=== PATIENT | male | born 1945 | race Caucasian/White ===

== ENCOUNTER → 2016-04-15 | Outpatient (CLI) | payer MEDICARE, OTHER ==
[~2016-04-15] MED LIST: CELE-19 PO; CIAL5TAB PO; COLA100C PO; GABA100C PO; GABA300C3 PO; LYRI75CA PO; OXYC1TAB16 PO; TPS CREAM TOP; ULTR50TA PO
--- NOTE | 2016-04-29 00:59 | ECWPNPC ---
PATIENT NAME: MAGDALENO SIMS : 1945 GENDER: MALE VISIT DATE: 04/15/2016 DISCHARGE DATE: 04/15/16 1140 VISIT LOCKED DATE TIME: PHYSICIAN: ALEJANDRINA BERNAL RESOURCE: ALEJANDRINA BERNAL REASON FOR APPOINTMENT 1. RT FOREARM HISTORY OF PRESENT ILLNESS TODAY'S VISIT: NOTES: CONTINUES TO HAVE PAIN IN RIGHT FOREARM AND HAS BEEN HAVING MORE PAIN RADIATING FROM NECK TO RIGHT ARM. RATES PAIN LEVEL TODAY A 6/10 DESCRIBES IT CONSTANT SHARP AND ACHING. NOTES IT REMAINS DIFFICULT FOR HIM TO FIND A COMFORTABLE POSITION FOR SLEEP. CONTINUES TO NOTE HYPERSENSITIVITY TO ANY LIGHT TOUCH OVER THE RIGHT FORE ARM. CURRENT MEDICATIONS NOT-TAKING DOCUSATE SODIUM 50 MG CAPSULE 1 CAPSULE NEEDED ORALLY ONCE A DAY NOT-TAKING CIALIS 5 MG TABLET 1 TABLET ORALLY NOT-TAKING CLOTRIMAZOLE-BETAMETHASONE 1-0.05 % LOTION 1 APPLICATION TO AFFECTED AREA EXTERNALLY TWICE A DAY NOT-TAKING PERCOCET 5-325 MG TABLET 1-2 TABLET(S) NEEDED FOR PAIN ORALLY EVERY 6 HRS NOT-TAKING VALIUM 5 MG TABLET 1 TABLET ORALLY QHS PAST MEDICAL HISTORY ED ALLERGIES DILAUDID: ITCHING VITAL SIGNS WT 234.0 LBS, HT 5'11'', BMI 32.63 INDEX, BP 155/79 MM HG, HR 76 /MIN, RR 20 /MIN, TEMP 97.6 F, OXYGEN SAT % 96%, NA INITIALS SC 10:30. EXAMINATION GENERAL EXAMINATION: PSYCHALERT , ORIENTED X 3 , APPROPRIATE MOOD AND AFFECT . LUNGS:CLEAR TO AUSCULTATION BILATERALLY. HEART:HEART RATE REGULAR. MUSCULOSKELETAL:DECREASED ROM WITH RIGHT SHOULDER ABDUCTION,. MILDTENDERNESS OVER RIGHT ACROMIOCLAVICULAR JOINT. HYPERSENSITIVTY TO ANY LIGHT TOUCH OVER RIGHT FOREARM FROM BASE OF RIGHT THUMB TO 5-6 CM EXTENDING PROXIMALLY UP THE RIGHT FOREARM. NO SKIN LESIONS. DECREASED ROM WITH MOVEMENT RIGHT THUMB WITH FLEXION/EXTENSION. . 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 (PRIMARY) NEURALGIA AND NEURITIS - M79.2 TREATMENT COMPLEX REGIONAL PAIN SYNDROME I OF RIGHT UPPER LIMB [facility] MRI SPINE, CERVICAL WITH [id number] [facility] MRI SPINE,THORACIC WITHOUT [id number] PROCEDURE CODES FA211 ESTABILISHED PATIENT [facility] FACILITY CHARGE Q5185 PAIN ASSESS POS TOOL F/U PLAN DOC G8427 DOC MEDS VERIFIED W/PT OR RE DISPOSITION & COMMUNICATION FOLLOW UP APPT WITH DR HINES FOR DCS EVAL (REASON: CHECK AUTH FOR THORACIC AND CERVICAL MRI) ELECTRONICALLY SIGNED BY HUNTER LIVINGSTON ON 04/28/2016 AT 02:53 PM EST DISCLAIMER : THIS IS A VISIT SUMMARY EXTRACTED FROM THE [employer] CHART. IT IS NOT A COPY OF THE [employer] PROGRESS NOTE. MTDD
== END ==
LOC: M PAIN 10:20
PROVIDERS: ATTEND Nurse Practitioner Family
DX: Z09 Encounter for follow-up examination after completed treatment for conditions other than malignant neoplasm (principal); G89.29 Other chronic pain; G90.511 Complex regional pain syndrome I of right upper limb; M79.2 Neuralgia and neuritis, unspecified; Z88.8 Allergy status to other drugs, medicaments and biological substances; M25.511 Pain in right shoulder; Z79.891 Long term (current) use of opiate analgesic; Z79.899 Other long term (current) drug therapy

== ENCOUNTER → 2016-05-07 | Outpatient (CLI) | payer MEDICARE, OTHER | LOC: M PAIN 11:00 | PROVIDERS: ATTEND Anesthesiology | DX: Z09 Encounter for follow-up examination after completed treatment for conditions other than malignant neoplasm (principal); G89.29 Other chronic pain; M79.2 Neuralgia and neuritis, unspecified; M79.603 Pain in arm, unspecified; N52.9 Male erectile dysfunction, unspecified; Z88.8 Allergy status to other drugs, medicaments and biological substances; Z79.891 Long term (current) use of opiate analgesic; Z79.899 Other long term (current) drug therapy; Z96.652 Presence of left artificial knee joint ==

== ENCOUNTER → 2016-06-29 | Outpatient (CLI) | payer MEDICARE, OTHER ==
[~2016-06-29] MED LIST changes: -COLA100C PO; +COLA100C3 PO; +GABA-282 PO; -GABA300C3 PO
--- NOTE | 2016-07-05 00:54 | ECWPNPC ---
PATIENT NAME: MAGDALENO SIMS : 1945 GENDER: MALE VISIT DATE: 06/29/2016 DISCHARGE DATE: 06/29/16 1528 VISIT LOCKED DATE TIME: PHYSICIAN: VALENTINA HINES RESOURCE: VALENTINA HINES REASON FOR APPOINTMENT 1. DCS HISTORY OF PRESENT ILLNESS HISTORY OF PRESENT ILLNESS: PAIN THE PATIENT DESCRIBES THE PAIN... 71 YEAR OLD MALE PATIENT WITH HISTORY OF CHRONIC ARM PAIN. PATIENT DESCRIBES THE PAIN ACHING, SHARP, STABBING, TENDER AND HAVING IT ALL THE TIME WITH A PAIN SCORE OF 9/10 ON TODAY'S VISIT. PATIENT REPORTS THAT THE PAIN GETS WORSE THROUGHOUT THE DAY AND HE IS HAVING A DIFFICULT PAIN FALLING ASLEEP AND STAYING ASLEEP DUE TO THE PAIN. PATIENT STATES THAT LIDOCAINE PATCH WAS DENIED BY MEDICARE AND HE WAS UNABLE TO START IT. PATIENT DENIES UNEXPLAINABLE WEIGHT LOSS, FEVER, CHILLS, NEW CHANGES ON HIS URINARY OR BOWEL CONTROL. FALL RISK SCREENING: SCREENING :NO FALLS IN THE PAST YEAR CURRENT MEDICATIONS NOT-TAKING LIDOCAINE 5 % PATCH DIRECTED EXTERNALLY BID AT AFFECTED AREA, NOTES: COULD NOT GET THEM NOT-TAKING DOCUSATE SODIUM 50 MG CAPSULE 1 CAPSULE NEEDED ORALLY ONCE A DAY NOT-TAKING CIALIS 5 MG TABLET 1 TABLET ORALLY NOT-TAKING CLOTRIMAZOLE-BETAMETHASONE 1-0.05 % LOTION 1 APPLICATION TO AFFECTED AREA EXTERNALLY TWICE A DAY NOT-TAKING PERCOCET 5-325 MG TABLET 1-2 TABLET(S) NEEDED FOR PAIN ORALLY EVERY 6 HRS NOT-TAKING VALIUM 5 MG TABLET 1 TABLET ORALLY QHS MEDICATION LIST REVIEWED AND RECONCILED WITH THE PATIENT PAST MEDICAL HISTORY ED ALLERGIES DILAUDID: ITCHING SURGICAL HISTORY RIGHT THUMB 01/29/05 LEFT KNEE AUGUST-2011 LEFT KNEE AUGUST 2013 COLONOSCOPY 04/2014 CIRCUMCISION 09/02/14 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 TOTAL LT KNEE RELACEMENT FOLLOWING INFECTION OF KNEE 03/2015 FAMILY HISTORY NO FAMILY HISTORY DOCUMENTED. SOCIAL HISTORY GENERAL: PAIN CLINIC PFS, CLERGY, PUBLIC HEALTH REFERRALS PFS REFERRAL NEEDED?NO CLERGY REFERRAL NEEDED?NO PUBLIC HEALTH REFERRAL NEEDED?NO WAS THE PROVIDER NOTIFIED OF ANY PERTINENT INFO?YES PATIENT: ____. HOSPITALIZATION/MAJOR DIAGNOSTIC PROCEDURE DIVERTICULITIS 03/2014 REVIEW OF SYSTEMS CONSTITUTIONAL: ANY CHANGE IN YOUR MEDICAL CONDITION? NO . CHILLS NO . FEVER NO . INFECTION: DO YOU HAVE NEW INFECTIONS? NO . DO YOU HAVE HISTORY OF MRSA? NO . MUSCULOSKELETAL: ANY NEW PATTERNS OF PAIN OR NUMBNESS? NO . GASTROENTEROLOGY: ANY NEW CHANGE IN BOWEL CONTROL? NO . GENITOURINARY: ANY NEW CHANGE IN BLADDER CONTROL? NO . IS THERE A CHANCE YOU COULD BE ? NO . HEMATOLOGY/LYMPH: DO YOU TAKE ANY BLOOD THINNERS? (FOR EXAMPLE- COUMADIN, PLAVIX, AGGRENOX, PLATEL, PRADAXA, OR XARELTO) NO . WHEN WAS YOUR LAST DOSE? DATE: TIME: . NEUROLOGY: HAVE YOU FALLEN IN THE PAST 6 MONTHS? NO . ANY NEW EXTREMITY NUMBNESS OR WEAKNESS? NO . CARDIOLOGY: DO YOU HAVE A PACEMAKER OR DEFIBRILLATOR? NO . RESPIRATORY: HAVE YOU BEEN SICK IN THE PAST WEEK? NO . FEVER NO . FLU LIKE SYMPTOMS? NO . COUGH NO . INTEGUMENTARY: DO YOU HAVE ANY RASHES OR OPEN SORES? NO . ALLERGIC/IMMUNO: ARE YOU ALLERGIC TO SHELLFISH OR IV DYE? NO . ANY NEW ALLERGIES? NO . PSYCHIATRIC: DO YOU HAVE THOUGHTS OF HURTING YOURSELF OR SOMEONE ELSE? NO . ARE YOU ABUSED, NEGLECTED, OR IN AN UNSAFE ENVIRONMENT? NO . ENDOCRINOLOGY: ARE YOU DIABETIC? NO . OTHER: DO YOU NEED ANY PRESCRIPTIONS? NO . IF YES, PLEASE LIST: ____ . ANY NEW PROBLEMS WITH YOUR MEDICATIONS? NO . WHEN DID YOU LAST EAT? ____ . WHEN DID YOU LAST DRINK? ____ . WHAT DID YOU LAST DRINK? ____ . NAME OF PERSON DRIVING YOU HOME? ____ . DO YOU HAVE ANY OTHER QUESTIONS OR CONCERNS NO . REVIEWED BY: PROVIDER: VALENTINA HINES MD . VITAL SIGNS WT 230 LBS, HT 71", BMI 32.07 INDEX, BP 141/79 MM HG, HR 77 /MIN, RR 18 /MIN, TEMP 98.4 F, OXYGEN SAT % 95%, SAFE IN ENV? (Y/N) Y, NA INITIALS SC 13:40, REVIEWED BY: ASIYA. EXAMINATION : PATIENT IS ALERT O X 3 AND COOPERATIVE. ALLODYNIA OVER THE LATERAL FOREARM. RADIAL NERVE NEURALGIA. STATUS POST TRAUMA RIGHT THUMB. PATIENT'S RIGHT ARMS IS WEAKER AT FLEXION AND EXTENSION COMPARED TO THE LEFT ARM. 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 TREATMENT NEURALGIA AND NEURITIS, UNSPECIFIED NOTES: WE DISCUSSED SEVERAL ISSUES WITH MR. SIMS'S PAIN MANAGEMENT CASE. AT THIS TIME THE PATIENT WILL START TO USE A LIDODERM CREAM ON HIS FOREARM TO SEE IF THAT WILL AID IN PAIN RELIEF AND ALSO PATIENT WILL START ON TRILEPTAL FOR THE PAIN. PATIENT EXPRESSES THAT HE WOULD LIKE TO PROCEED FORWARD WITH THE DCS TRIAL, DISCUSSED WITH THE PATIENT WE HAVE SENT THE REFERRAL OVER TO DR. UP AND AT THIS TIME WE ARE WAITING FOR HIS OFFICE TO GIVE THEM A CALL FOR AN APPOINTMENT. I WOULD LIKE TO DISCUSS THE PATIENT'S MRI WITH THE RADIOLOGIST. PATIENT TO FOLLOW UP WITH ME IN 1 MONTH. INSTRUCTIONS WERE GIVEN, QUESTIONS WERE ANSWERED, PATIENT REPORTS UNDERSTANDING AND AGREES WITH THE PLAN. I, DEMETRA SANCHEZ, DOCUMENTED THE ABOVE INFORMATION ACTING A SCRIBE FOR DR. HINES. I HAVE REVIEWED THE ABOVE DOCUMENT, WRITTEN BY DEMETRA SANCHEZ SCRIBE AND I VERIFY THAT IT IS ACCURATE. OTHERS START LIDOCAINE CREAM, 4 %, 1 APPLICATION TO AFFECTED AREA NEEDED, EXTERNALLY NEEDED FOR PAIN, THREE TIMES A DAY, 30 DAY(S), 1, REFILLS 2 START TRILEPTAL TABLET, 150 MG, DIRECTED, ORALLY FOR PAIN, BID, 30 DAY(S), 60, REFILLS 0 PROCEDURE CODES FA211 ESTABILISHED PATIENT [facility] CHARGE G8730 PAIN ASSESS POS TOOL F/U PLAN DOC G8427 DOC MEDS VERIFIED W/PT OR RE DISPOSITION & COMMUNICATION FOLLOW UP 4 WEEKS ELECTRONICALLY SIGNED BY VALENTINA HINES MD ON 07/04/2016 AT 11:39 AM EDT DISCLAIMER : THIS IS A VISIT SUMMARY EXTRACTED FROM THE [employer] CHART. IT IS NOT A COPY OF THE [employer] PROGRESS NOTE. MTDD
== END ==
LOC: M PAIN 13:40
PROVIDERS: ATTEND Anesthesiology
DX: G89.29 Other chronic pain (principal); M79.2 Neuralgia and neuritis, unspecified; M79.601 Pain in right arm; Z88.8 Allergy status to other drugs, medicaments and biological substances; Z79.891 Long term (current) use of opiate analgesic; Z79.899 Other long term (current) drug therapy

== ENCOUNTER → 2016-07-15 | Outpatient (CLI) | payer MEDICARE, OTHER ==
--- NOTE | 2016-07-28 00:40 | ECWPNPC ---
PATIENT NAME: MAGDALENO SIMS : 1945 GENDER: MALE VISIT DATE: 07/15/2016 DISCHARGE DATE: 07/15/161716 VISIT LOCKED DATE TIME: PHYSICIAN: VALENTINA HINES RESOURCE: VALENTINA HINES REASON FOR APPOINTMENT 1. FOLLOW UP HISTORY OF PRESENT ILLNESS HISTORY OF PRESENT ILLNESS: PAIN THE PATIENT DESCRIBES THE PAIN... 71 YEAR OLD MALE PATIENT WITH HISTORY OF CHRONIC RIGHT ARM PAIN. PATIENT DESCRIBES THE PAIN ACHING, SHARP, STABBING, THROBBING, AND HAVING IT ALL THE TIME WITH A PAIN SCORE OF 9/10 ON TODAY'S VISIT. PATIENT REPORTS THAT HE IS HERE TODAY TO FILL OUT THE PAPER WORK FOR A SPINAL COLUMN STIMULATOR. PATIENT REPORTS THAT THE PAIN IS PRIMARILY IN THE RIGHT WRIST TO FOREARM AREA RADIATING UP TO THE ELBOW AREA. PATIENT STATES THAT HE CAN NOT STAND FOR A LONG PERIOD OF TIME. PATIENT DENIES TAKING BLOOD THINNERS, DAILY ASPIRIN, AND IBUPROFEN. PATIENT REPORTS THAT HE HAD A CARDIAC EVENT. PATIENT DENIES UNEXPLAINABLE WEIGHT LOSS, FEVER, CHILLS, NEW CHANGES ON HIS URINARY OR BOWEL CONTROL. FALL RISK SCREENING: SCREENING :NO FALLS IN THE PAST YEAR CURRENT MEDICATIONS TAKING LIDOCAINE 4 % CREAM 1 APPLICATION TO AFFECTED AREA NEEDED EXTERNALLY NEEDED FOR PAIN THREE TIMES A DAY TAKING TRILEPTAL 150 MG TABLET DIRECTED ORALLY FOR PAIN BID NOT-TAKING CIALIS 5 MG TABLET 1 TABLET ORALLY NOT-TAKING CLOTRIMAZOLE-BETAMETHASONE 1-0.05 % LOTION 1 APPLICATION TO AFFECTED AREA EXTERNALLY TWICE A DAY DISCONTINUED LIDOCAINE 5 % PATCH DIRECTED EXTERNALLY BID AT AFFECTED AREA, NOTES: COULD NOT GET THEM DISCONTINUED DOCUSATE SODIUM 50 MG CAPSULE 1 CAPSULE NEEDED ORALLY ONCE A DAY DISCONTINUED PERCOCET 5-325 MG TABLET 1-2 TABLET(S) NEEDED FOR PAIN ORALLY EVERY 6 HRS DISCONTINUED VALIUM 5 MG TABLET 1 TABLET ORALLY QHS MEDICATION LIST REVIEWED AND RECONCILED WITH THE PATIENT PAST MEDICAL HISTORY ED ALLERGIES DILAUDID: ITCHING SURGICAL HISTORY RIGHT THUMB 01/29/05 LEFT KNEE AUGUST-2011 LEFT KNEE AUGUST 2013 COLONOSCOPY 04/2014 CIRCUMCISION 09/02/14 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 TOTAL LT KNEE RELACEMENT FOLLOWING INFECTION OF KNEE 03/2015 FAMILY HISTORY NO FAMILY HISTORY DOCUMENTED. SOCIAL HISTORY GENERAL: PAIN CLINIC PFS, CLERGY, PUBLIC HEALTH REFERRALS CLERGY REFERRAL NEEDED?NO WAS THE PROVIDER NOTIFIED OF ANY PERTINENT INFO?YES PFS REFERRAL NEEDED?NO PUBLIC HEALTH REFERRAL NEEDED?NO PATIENT: ____. HOSPITALIZATION/MAJOR DIAGNOSTIC PROCEDURE DIVERTICULITIS 03/2014 REVIEW OF SYSTEMS CONSTITUTIONAL: ANY CHANGE IN YOUR MEDICAL CONDITION? NO . CHILLS NO . FEVER NO . INFECTION: DO YOU HAVE NEW INFECTIONS? NO . DO YOU HAVE HISTORY OF MRSA? NO . MUSCULOSKELETAL: ANY NEW PATTERNS OF PAIN OR NUMBNESS? NO . GASTROENTEROLOGY: ANY NEW CHANGE IN BOWEL CONTROL? NO . GENITOURINARY: ANY NEW CHANGE IN BLADDER CONTROL? NO . IS THERE A CHANCE YOU COULD BE ? NO . HEMATOLOGY/LYMPH: DO YOU TAKE ANY BLOOD THINNERS? (FOR EXAMPLE- COUMADIN, PLAVIX, AGGRENOX, PLATEL, PRADAXA, OR XARELTO) NO . WHEN WAS YOUR LAST DOSE? DATE: TIME: . NEUROLOGY: HAVE YOU FALLEN IN THE PAST 6 MONTHS? NO . ANY NEW EXTREMITY NUMBNESS OR WEAKNESS? NO . CARDIOLOGY: DO YOU HAVE A PACEMAKER OR DEFIBRILLATOR? NO . RESPIRATORY: HAVE YOU BEEN SICK IN THE PAST WEEK? NO . FEVER NO . FLU LIKE SYMPTOMS? NO . COUGH NO . INTEGUMENTARY: DO YOU HAVE ANY RASHES OR OPEN SORES? NO . ALLERGIC/IMMUNO: ARE YOU ALLERGIC TO SHELLFISH OR IV DYE? NO . ANY NEW ALLERGIES? NO . PSYCHIATRIC: DO YOU HAVE THOUGHTS OF HURTING YOURSELF OR SOMEONE ELSE? NO . ARE YOU ABUSED, NEGLECTED, OR IN AN UNSAFE ENVIRONMENT? NO . ENDOCRINOLOGY: ARE YOU DIABETIC? NO . OTHER: DO YOU NEED ANY PRESCRIPTIONS? NO . IF YES, PLEASE LIST: ____ . ANY NEW PROBLEMS WITH YOUR MEDICATIONS? NO . WHEN DID YOU LAST EAT? ____ . WHEN DID YOU LAST DRINK? ____ . WHAT DID YOU LAST DRINK? ____ . NAME OF PERSON DRIVING YOU HOME? ____ . DO YOU HAVE ANY OTHER QUESTIONS OR CONCERNS NO . REVIEWED BY: PROVIDER: VALENTINA HINES MD . VITAL SIGNS WT 231.2 LBS, HT 71", BMI 32.24 INDEX, BP 144/78 MM HG, HR 81 /MIN, RR 18 /MIN, TEMP 98.1 F, OXYGEN SAT % 95%, NA INITIALS SC 14:38, REVIEWED BY: CM. EXAMINATION : PATIENT IS ALERT O X 3 AND COOPERATIVE. ALLODYNIA OVER THE LATERAL FOREARM. RADIAL NERVE NEURALGIA. STATUS POST TRAUMA RIGHT THUMB. PATIENT'S RIGHT ARMS IS WEAKER AT FLEXION AND EXTENSION COMPARED TO THE LEFT ARM. 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 TREATMENT NEURALGIA AND NEURITIS, UNSPECIFIED NOTES: WE DISCUSSED SEVERAL ISSUES WITH MR. SIMS'S PAIN MANAGEMENT CASE. AT THIS TIME THE PATIENT WILL CONTINUE ON THE SAME MEDICATION REGIMEN BEFORE. I WILL PRESCRIBE KEFLEX CAPSULE AND ADVISED THE PATIENT TO ONLY START TAKING THIS MEDICATION THE DAY OF THE TRIAL A PRECAUTION AGAINST INFECTIONS. A THIS TIME THE PATIENT WOULD LIKE TO PROCEED WITH THE SCS. BUT I DISCUSSED WITH THE PATIENT THAT DUE TO THE CARDIAC EVENT HE EXPERIENCE I WILL NEED A CLEARANCE FROM HIS YARDAGE CONTROL CLERK TO GIVE HIM THE OKAY TO PROCEED WITH A SCS TRIAL. INSTRUCTIONS WERE GIVEN, QUESTIONS WERE ANSWERED, PATIENT REPORTS UNDERSTANDING AND AGREES WITH THE PLAN. I, DEMETRA SANCHEZ, DOCUMENTED THE ABOVE INFORMATION ACTING A SCRIBE FOR DR. HINES. I HAVE REVIEWED THE ABOVE DOCUMENT, WRITTEN BY DEMETRA SANCHEZ [employer] AND I VERIFY THAT IT IS ACCURATE. OTHERS START KEFLEX CAPSULE, 500 MG, 1 CAPSULE, ORALLY, THREE TIMES DAILY, 10 DAY(S), 30, REFILLS 0 REFILL TRILEPTAL TABLET, 150 MG, DIRECTED, ORALLY FOR PAIN, BID, 30 DAY(S), 60, REFILLS 0 REFILL LIDOCAINE CREAM, 4 %, 1 APPLICATION TO AFFECTED AREA NEEDED, EXTERNALLY NEEDED FOR PAIN, THREE TIMES A DAY, 30 DAY(S), 1, REFILLS 2 PROCEDURE CODES FA211 ESTABILISHED PATIENT [facility] FACILITY CHARGE G8730 PAIN ASSESS POS TOOL F/U PLAN DOC G8427 DOC MEDS VERIFIED W/PT OR RE DISPOSITION & COMMUNICATION FOLLOW UP 3 WEEKS ELECTRONICALLY SIGNED BY VALENTINA HINES MD ON 07/27/2016 AT 06:03 PM EDT DISCLAIMER : THIS IS A VISIT SUMMARY EXTRACTED FROM THE [employer] CHART. IT IS NOT A COPY OF THE [employer] PROGRESS NOTE. MTDD
== END ==
LOC: M PAIN 14:20
PROVIDERS: ATTEND Anesthesiology
DX: G89.29 Other chronic pain (principal); M79.2 Neuralgia and neuritis, unspecified; M79.601 Pain in right arm; Z88.8 Allergy status to other drugs, medicaments and biological substances; Z79.899 Other long term (current) drug therapy

== ENCOUNTER → 2016-07-20 | Outpatient (CLI) | payer MEDICARE, BC, OTHER ==
--- NOTE | 2016-07-20 10:47 | REP ---
CT CERVICAL SPINE WITHOUT CONTRAST: 07/20/2016 COMPARISON: MRI cervical spine 05/04/2016 at [facility] in [place]. CLINICAL HISTORY: Neck pain. Known cervical spondylosis. TECHNIQUE: Sagittal and coronal reconstructions with standard axial image set obtained. FINDINGS: Mastoids and occipital bone grossly unremarkable. Ring of C1 is intact. The dens shows normal relationship to the anterior arch and lateral masses of C1 on all projections. There is cervical spondylosis greatest at C4-5 through C6-7 with anterior and posterior osteophytes and disc space narrowing, vacuum phenomenon seen at the C4-5 and the C6-7 levels. There is no compression deformity, disc space heights at the other three levels are unremarkable. The dens is intact without fracture or focal lesion. The spinous processes, lamina, pedicles and transverse processes are grossly intact. There is some facet arthropathy greatest on the right at C3-4, see to a lesser extent bilaterally at all other levels. The posterior osteophyte ridge at C4-5, C5-6 and C6-7, all contributes to some mild to moderate central canal stenosis as on the MRI in May. Foraminal encroachment bilaterally at C4-5, C5-6 and C6-7 less at C3-4. No malalignment or acute compression deformity. IMPRESSION: 1. Cervical spondylosis C3-4 through C7-T1 greatest at C4-5 through C6-7. Central canal stenosis at those levels and foraminal encroachment at multiple levels with no progression from the MRI appearance in April. Signed by James Castro MD 07/20/2016 01:25 P
== END ==
LOC: M RAD 09:08
PROVIDERS: ATTEND Physician Assistant
DX: M47.892 Other spondylosis, cervical region (principal); M48.02 Spinal stenosis, cervical region

== ENCOUNTER → 2016-07-29 | Outpatient (CLI) | payer MEDICARE, OTHER ==
--- NOTE | 2016-08-11 02:41 | ECWPNPC ---
PATIENT NAME: MAGDALENO SIMS : 1945 GENDER: MALE VISIT DATE: 07/29/2016 DISCHARGE DATE: 07/29/16 1426 VISIT LOCKED DATE TIME: PHYSICIAN: VALENTINA HINES RESOURCE: VALENTINA HINES REASON FOR APPOINTMENT 1. ARM HISTORY OF PRESENT ILLNESS HISTORY OF PRESENT ILLNESS: PAIN THE PATIENT DESCRIBES THE PAIN... 71 YEAR OLD MALE PATIENT WITH HISTORY OF CHRONIC RIGHT ARM PAIN. PATIENT DESCRIBES THE PAIN ACHING, SHARP, STABBING, TENDER, AND HAVING IT ALL THE TIME WITH A PAIN SCORE OF 9/10 ON TODAY'S VISIT. PATIENT REPORTS THAT HE SAW THE PSYCHOLOGIST FOR THE PSYCHOLOGICAL EVALUATION. PATIENT REPORTS THAT HE HAS AN UP COMING APPOINTMENT WITH HIS POWER STATION OPERATOR. PATIENT STATES THAT HE HAD A FAINT SPELL THE DAY AFTER EXPERIENCING TIGHTNESS IN HIS CHEST AND BLURRED VISION WHILE WORKING UNDER HIS CAR, HENCE THE APPOINTMENT WITH THE POWER STATION OPERATOR. PATIENT DENIES UNEXPLAINABLE WEIGHT LOSS, FEVER, CHILLS, NEW CHANGES ON HIS URINARY OR BOWEL CONTROL. FALL RISK SCREENING: SCREENING :NO FALLS IN THE PAST YEAR CURRENT MEDICATIONS TAKING KEFLEX 500 MG CAPSULE 1 CAPSULE ORALLY THREE TIMES DAILY TAKING TRILEPTAL 150 MG TABLET DIRECTED ORALLY FOR PAIN BID TAKING LIDOCAINE 4 % CREAM 1 APPLICATION TO AFFECTED AREA NEEDED EXTERNALLY NEEDED FOR PAIN THREE TIMES A DAY NOT-TAKING CIALIS 5 MG TABLET 1 TABLET ORALLY NOT-TAKING CLOTRIMAZOLE-BETAMETHASONE 1-0.05 % LOTION 1 APPLICATION TO AFFECTED AREA EXTERNALLY TWICE A DAY PAST MEDICAL HISTORY ED ALLERGIES DILAUDID: ITCHING SURGICAL HISTORY RIGHT THUMB 01/29/05 LEFT KNEE AUGUST-2011 LEFT KNEE AUGUST 2013 COLONOSCOPY 04/2014 CIRCUMCISION 09/02/14 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 TOTAL LT KNEE RELACEMENT FOLLOWING INFECTION OF KNEE 03/2015 FAMILY HISTORY NO FAMILY HISTORY DOCUMENTED. SOCIAL HISTORY GENERAL: PAIN CLINIC PFS, CLERGY, PUBLIC HEALTH REFERRALS CLERGY REFERRAL NEEDED?NO WAS THE PROVIDER NOTIFIED OF ANY PERTINENT INFO?YES PFS REFERRAL NEEDED?NO PUBLIC HEALTH REFERRAL NEEDED?NO PATIENT: ____. HOSPITALIZATION/MAJOR DIAGNOSTIC PROCEDURE DIVERTICULITIS 03/2014 REVIEW OF SYSTEMS CONSTITUTIONAL: ANY CHANGE IN YOUR MEDICAL CONDITION? NO . CHILLS NO . FEVER NO . INFECTION: DO YOU HAVE NEW INFECTIONS? NO . DO YOU HAVE HISTORY OF MRSA? NO . MUSCULOSKELETAL: ANY NEW PATTERNS OF PAIN OR NUMBNESS? NO . GASTROENTEROLOGY: ANY NEW CHANGE IN BOWEL CONTROL? NO . GENITOURINARY: ANY NEW CHANGE IN BLADDER CONTROL? NO . IS THERE A CHANCE YOU COULD BE ? NO . HEMATOLOGY/LYMPH: DO YOU TAKE ANY BLOOD THINNERS? (FOR EXAMPLE- COUMADIN, PLAVIX, AGGRENOX, PLATEL, PRADAXA, OR XARELTO) NO . WHEN WAS YOUR LAST DOSE? DATE: TIME: . NEUROLOGY: HAVE YOU FALLEN IN THE PAST 6 MONTHS? NO . ANY NEW EXTREMITY NUMBNESS OR WEAKNESS? NO . CARDIOLOGY: DO YOU HAVE A PACEMAKER OR DEFIBRILLATOR? NO . RESPIRATORY: HAVE YOU BEEN SICK IN THE PAST WEEK? NO . FEVER NO . FLU LIKE SYMPTOMS? NO . COUGH NO . INTEGUMENTARY: DO YOU HAVE ANY RASHES OR OPEN SORES? NO . ALLERGIC/IMMUNO: ARE YOU ALLERGIC TO SHELLFISH OR IV DYE? NO . ANY NEW ALLERGIES? NO . PSYCHIATRIC: DO YOU HAVE THOUGHTS OF HURTING YOURSELF OR SOMEONE ELSE? NO . ARE YOU ABUSED, NEGLECTED, OR IN AN UNSAFE ENVIRONMENT? NO . ENDOCRINOLOGY: ARE YOU DIABETIC? NO . OTHER: DO YOU NEED ANY PRESCRIPTIONS? NO . IF YES, PLEASE LIST: ____ . ANY NEW PROBLEMS WITH YOUR MEDICATIONS? NO . WHEN DID YOU LAST EAT? ____ . WHEN DID YOU LAST DRINK? ____ . WHAT DID YOU LAST DRINK? ____ . NAME OF PERSON DRIVING YOU HOME? ____ . DO YOU HAVE ANY OTHER QUESTIONS OR CONCERNS NO . REVIEWED BY: PROVIDER: VALENTINA HINES MD . VITAL SIGNS WT 230.0 LBS, HT 71", BMI 32.07 INDEX, BP 140/72 MM HG, HR 77 /MIN, RR 18 /MIN, TEMP 98.0 F, OXYGEN SAT % 96, NA INITIALS TL 1304. EXAMINATION : PATIENT IS ALERT O X 3 AND COOPERATIVE. ALLODYNIA OVER THE LATERAL FOREARM. RADIAL NERVE NEURALGIA. STATUS POST TRAUMA RIGHT THUMB. PATIENT'S RIGHT ARMS IS WEAKER AT FLEXION AND EXTENSION COMPARED TO THE LEFT ARM. 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 TREATMENT NEURALGIA AND NEURITIS, UNSPECIFIED NOTES: WE DISCUSSED SEVERAL ISSUES WITH MR. SIMS'S PAIN MANAGEMENT CASE. AT THIS TIME THE PATIENT WILL CONTINUE ON THE SAME MEDICATION REGIMEN BEFORE. I DISCUSSED WITH THE PATIENT ABOUT THE RESULTS OF THE PSYCHOLOGICAL TEST. I INFORMED THE PATIENT THAT I WILL NEED HIM TO SEE A PSYCHOLOGIST FOR SUPPORT PER PSYCHOLOGICAL EVALUATION. WE CAN PROCEED WITH A TRIAL, BUT IN ORDER TO PROCEED WITH THE SCS PERMANENT WE WILL NEED A PSYCHOLOGICAL CLEARANCE. I WILL HAVE THE PATIENT SIGN A RELEASE OF MEDICAL INFORMATION IN ORDER FOR US TO FAX THE NEED INFORMATION TO THE PSYCHOLOGIST THE PATIENT CHOOSES. AT THIS TIME PATIENT WOULD LIKE TO PROCEED WITH A SCS TRIAL, PENDING POWER STATION OPERATOR CLEARANCE. PATIENT WILL FOLLOW UP WITH ME IN 4 WEEKS. INSTRUCTIONS WERE GIVEN, QUESTIONS WERE ANSWERED, PATIENT REPORTS UNDERSTANDING AND AGREES WITH THE PLAN. I, DEMETRA SANCHEZ, DOCUMENTED THE ABOVE INFORMATION ACTING A SCRIBE FOR DR. HINES. I HAVE REVIEWED THE ABOVE DOCUMENT, WRITTEN BY DEMETRA SANCHEZ [employer] AND I VERIFY THAT IT IS ACCURATE. PROCEDURE CODES FA211 ESTABILISHED PATIENT [facility] FACILITY CHARGE G8730 PAIN ASSESS POS TOOL F/U PLAN DOC G8427 DOC MEDS VERIFIED W/PT OR RE DISPOSITION & COMMUNICATION FOLLOW UP 4 WEEKS ELECTRONICALLY SIGNED BY VALENTINA HINES MD ON 08/10/2016 AT 06:37 PM EDT DISCLAIMER : THIS IS A VISIT SUMMARY EXTRACTED FROM THE [employer] CHART. IT IS NOT A COPY OF THE [employer] PROGRESS NOTE. [place]ISON
== END ==
LOC: M PAIN 13:00
PROVIDERS: ATTEND Anesthesiology
DX: M79.2 Neuralgia and neuritis, unspecified (principal); Z79.899 Other long term (current) drug therapy; Z79.2 Long term (current) use of antibiotics; Z88.5 Allergy status to narcotic agent

== ENCOUNTER → 2016-10-21 | Outpatient (CLI) | payer MEDICARE, BC, OTHER ==
[~2016-10-21] MED LIST changes: -CELE-19 PO; +CELE1CAP4 PO; -COLA100C3 PO; +COLA100C5 PO
== END ==
LOC: M LAB 14:04
PROVIDERS: ATTEND Internal Medicine Cardiovascular Disease
DX: E78.4 Other hyperlipidemia (principal)

== ENCOUNTER → 2016-11-12 | Outpatient (CLI) | payer MEDICARE, BC, OTHER ==
--- NOTE | 2016-11-23 02:23 | ECWPNPC ---
PATIENT NAME: MAGDALENO SIMS : 1945 GENDER: MALE VISIT DATE: 11/12/2016 DISCHARGE DATE: 11/12/16 1454 VISIT LOCKED DATE TIME: PHYSICIAN: VALENTINA HINES RESOURCE: VALENTINA HINES REASON FOR APPOINTMENT 1. ARM PAIN HISTORY OF PRESENT ILLNESS HISTORY OF PRESENT ILLNESS: PAIN THE PATIENT DESCRIBES THE PAIN... 71 YEAR OLD MALE PATIENT WITH HISTORY OF CHRONIC RIGHT ARM PAIN. PATIENT DESCRIBES THE PAIN ACHING, SHARP, STABBING, TENDER, AND HAVING IT ALL THE TIME WITH A PAIN SCORE OF 9/10 ON TODAY'S VISIT. PATIENT REPORTS THAT HE SAW THE PSYCHOLOGIST FOR THE PSYCHOLOGICAL EVALUATION AND IS CONTINUING COUNSELING. PATIENT REPORTS HAVING CLEARANCE FROM HIS FORMAL WEAR RENTAL CLERK AT THIS POINT TO MOVE FORWARD WITH THE DCS. PATIENT DENIES UNEXPLAINABLE WEIGHT LOSS, FEVER, CHILLS, NEW CHANGES ON HIS URINARY OR BOWEL CONTROL. FALL RISK SCREENING: SCREENING :NO FALLS IN THE PAST YEAR CURRENT MEDICATIONS TAKING LIDOCAINE 4 % CREAM 1 APPLICATION TO AFFECTED AREA NEEDED EXTERNALLY NEEDED FOR PAIN THREE TIMES A DAY TAKING METFORMIN HCL 500 MG TABLET 1 TABLET WITH MEALS ORALLY TWICE A DAY TAKING METOPROLOL SUCCINATE TAKING ASPIRIN ADULT LOW STRENGTH 81 MG TABLET DELAYED RELEASE 1 TABLET ORALLY ONCE A DAY TAKING EZETIMIBE 10 MG TABLET 1 TABLET ORALLY ONCE A DAY NOT-TAKING KEFLEX 500 MG CAPSULE 1 CAPSULE ORALLY THREE TIMES DAILY NOT-TAKING TRILEPTAL 150 MG TABLET DIRECTED ORALLY FOR PAIN BID NOT-TAKING CIALIS 5 MG TABLET 1 TABLET ORALLY NOT-TAKING CLOTRIMAZOLE-BETAMETHASONE 1-0.05 % LOTION 1 APPLICATION TO AFFECTED AREA EXTERNALLY TWICE A DAY MEDICATION LIST REVIEWED AND RECONCILED WITH THE PATIENT PAST MEDICAL HISTORY ED ALLERGIES DILAUDID: ITCHING REVIEW OF SYSTEMS REVIEWED BY: PROVIDER: VALENTINA HINES MD . CONSTITUTIONAL: ANY CHANGE IN YOUR MEDICAL CONDITION? YES PT HAD CARDIAC CATH IN AUGUST AT [facility]. RECENTLY BEEN DIAGNOSED WITH DIABETES, ALSO DIAGNOSED WITH A LEAKY VALVE&NBSP;. CHILLS &NBSP;&NBSP; NO&NBSP;. FEVER &NBSP;&NBSP; NO&NBSP;. INFECTION: DO YOU HAVE NEW INFECTIONS? NO . DO YOU HAVE HISTORY OF MRSA? NO . MUSCULOSKELETAL: ANY NEW PATTERNS OF PAIN OR NUMBNESS? NO . GASTROENTEROLOGY: ANY NEW CHANGE IN BOWEL CONTROL? NO . GENITOURINARY: ANY NEW CHANGE IN BLADDER CONTROL? NO . IS THERE A CHANCE YOU COULD BE ? NO . HEMATOLOGY/LYMPH: DO YOU TAKE ANY BLOOD THINNERS? (FOR EXAMPLE- COUMADIN, PLAVIX, AGGRENOX, PLATEL, PRADAXA, OR XARELTO) NO . WHEN WAS YOUR LAST DOSE? DATE: TIME: . NEUROLOGY: HAVE YOU FALLEN IN THE PAST 6 MONTHS? NO . ANY NEW EXTREMITY NUMBNESS OR WEAKNESS? NO . CARDIOLOGY: DO YOU HAVE A PACEMAKER OR DEFIBRILLATOR? NO . RESPIRATORY: HAVE YOU BEEN SICK IN THE PAST WEEK? NO . FEVER NO . FLU LIKE SYMPTOMS? NO . COUGH NO . INTEGUMENTARY: DO YOU HAVE ANY RASHES OR OPEN SORES? NO . ALLERGIC/IMMUNO: ARE YOU ALLERGIC TO SHELLFISH OR IV DYE? NO . ANY NEW ALLERGIES? NO . PSYCHIATRIC: DO YOU HAVE THOUGHTS OF HURTING YOURSELF OR SOMEONE ELSE? NO . ARE YOU ABUSED, NEGLECTED, OR IN AN UNSAFE ENVIRONMENT? NO . ENDOCRINOLOGY: ARE YOU DIABETIC? YES . OTHER: DO YOU NEED ANY PRESCRIPTIONS? NO . IF YES, PLEASE LIST: ____ . ANY NEW PROBLEMS WITH YOUR MEDICATIONS? NO . WHEN DID YOU LAST EAT? ____ . WHEN DID YOU LAST DRINK? ____ . WHAT DID YOU LAST DRINK? ____ . NAME OF PERSON DRIVING YOU HOME? ____ . DO YOU HAVE ANY OTHER QUESTIONS OR CONCERNS NO . VITAL SIGNS WT 229 LBS, HT 71", BMI 31.94 INDEX, BP 153/79 MM HG, HR 74 /MIN, RR 18 /MIN, TEMP 97 F, OXYGEN SAT % 97, REVIEWED BY: NL. EXAMINATION : PATIENT IS ALERT O X 3 AND COOPERATIVE. ALLODYNIA OVER THE LATERAL FOREARM. RADIAL NERVE NEURALGIA. STATUS POST TRAUMA RIGHT THUMB. PATIENT'S RIGHT ARMS IS WEAKER AT FLEXION AND EXTENSION COMPARED TO THE LEFT ARM. 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 TREATMENT NEURALGIA AND NEURITIS, UNSPECIFIED NOTES: WE DISCUSSED SEVERAL ISSUES WITH MR. SIMS'S PAIN MANAGEMENT CASE. AT THIS TIME THE PATIENT WILL CONTINUE WITH THE SAME MEDICATION REGIME BEFORE. PATIENT HAS RECEIVED CLEARANCE FROM HIS FORMAL WEAR RENTAL CLERK TO MOVE FORWARD WITH THE DCS. PATIENT WILL NEED TO GAIN CLEARANCE FROM PULMONOLOGY WELL HIS PRIMARY CARE PHYSICIAN BEFORE WE CAN MOVE FORWARD. I WOULD ALSO LIKE TO HAVE A CLEARANCE FROM THE PSYCHOLOGIST THAT THE PATIENT HAS BEEN FOLLOWING UP WITH. I ALSO WOULD LIKE TO SPEAK WIT THE RADIOLOGIST TO MAKE SURE THERE IS ROOM FOR THE LEADS TO PASS THROUGH. PATIENT WILL RETURN TO THE CLINIC IN 1 MONTH AFTER HE HAS RECEIVED CLEARANCES. INSTRUCTIONS WERE GIVEN, QUESTIONS WERE ANSWERED, PATIENT REPORTS UNDERSTANDING AND AGREES WITH THE PLAN. I, ALFONSO MELVIN, DOCUMENTED THE ABOVE INFORMATION ACTING A SCRIBE FOR DR. HINES. I HAVE REVIEWED THE ABOVE DOCUMENT, WRITTEN BY ALFONSO LIANGIBPrateek AND I VERIFY THAT IT IS ACCURATE. PROCEDURE CODES FA211 ESTABILISHED PATIENT [facility] FACILITY CHARGE G8427 DOC MEDS VERIFIED W/PT OR RE G8730 PAIN ASSESS POS TOOL F/U PLAN DOC DISPOSITION & COMMUNICATION FOLLOW UP 4 WEEKS ELECTRONICALLY SIGNED BY VALENTINA HINES MD ON 11/22/2016 AT 07:21 AM EDT DISCLAIMER : THIS IS A VISIT SUMMARY EXTRACTED FROM THE [employer] CHART. IT IS NOT A COPY OF THE [employer] PROGRESS NOTE. MTDBrandi
== END ==
LOC: M PAIN 13:15
PROVIDERS: ATTEND Anesthesiology
DX: G89.29 Other chronic pain (principal); M79.2 Neuralgia and neuritis, unspecified; M79.601 Pain in right arm; E11.9 Type 2 diabetes mellitus without complications; I38 Endocarditis, valve unspecified; Z88.8 Allergy status to other drugs, medicaments and biological substances; Z79.84 Long term (current) use of oral hypoglycemic drugs; Z79.82 Long term (current) use of aspirin; Z79.899 Other long term (current) drug therapy

== ENCOUNTER → 2016-12-31 | Outpatient (CLI) | payer MEDICARE, BC, OTHER ==
[2016-12-31 13:51] LABS: MEAN CORPUSCULAR HEMOGLOBIN 31.5 pg (27.0-33.0); MEAN CORPUSCULAR HGB CONC 34.5 g/dl (32.0-36.5); MEAN CORPUSCULAR VOLUME 91.4 fl (80.0-96.0); PLATELET COUNT, AUTOMATED 282 10^3/uL (150-450); RED CELL DISTRIBUTION WIDTH 11.8 % (11.5-14.5); WHITE BLOOD COUNT 10.3 10^3/uL (4.0-10.0)
[2016-12-31 14:27] LABS: ALKALINE PHOSPHATASE 61 U/L (45-117); ALT/SGPT 54 U/L (12-78); ANION GAP 8 MEQ/L (8-16); AST/SGOT 26 U/L (15-37); BILIRUBIN,TOTAL 0.7 MG/DL (0.2-1.0); BLOOD UREA NITROGEN 16 MG/DL (7-18); CALCIUM LEVEL 9.5 MG/DL (8.8-10.2); CARBON DIOXIDE LEVEL 27 MEQ/L (21-32); CHLORIDE LEVEL 103 MEQ/L (98-107); CHOLESTEROL LEVEL 174 MG/DL (<200); CREATININE FOR GFR 0.96 MG/DL (0.70-1.30); GLOMERULAR FILTRATION RATE > 60.0 (>42); GLUCOSE, FASTING 109 MG/DL (83-110); POTASSIUM SERUM 4.2 MEQ/L (3.5-5.1); SODIUM LEVEL 138 MEQ/L (136-145); TRIGLYCERIDES LEVEL 167 MG/DL (<150)
[2016-12-31 14:28] LABS: ALBUMIN 4.4 GM/DL (3.2-5.2); ALBUMIN/GLOBULIN RATIO 1.47 (1.00-1.93); FREE T4 0.99 NG/DL (0.76-1.46); TOTAL PROTEIN 7.4 GM/DL (6.4-8.2)
== END ==
LOC: M LAB 12:57
PROVIDERS: ATTEND General Practice
DX: E78.5 Hyperlipidemia, unspecified (principal); N40.1 Benign prostatic hyperplasia with lower urinary tract symptoms; R53.81 Other malaise; L98.9 Disorder of the skin and subcutaneous tissue, unspecified; E11.65 Type 2 diabetes mellitus with hyperglycemia; I10 Essential (primary) hypertension; M79.2 Neuralgia and neuritis, unspecified; Z88.5 Allergy status to narcotic agent; Z79.899 Other long term (current) drug therapy; Z79.84 Long term (current) use of oral hypoglycemic drugs
CPT/HCPCS: 36415; 80053; 80061; 81001; 83036; 84153; 84439; 84443; 85027; G0463

== ENCOUNTER → 2016-12-31 | Outpatient (CLI) | payer MEDICARE, OTHER ==
--- NOTE | 2017-01-20 01:40 | ECWPNPC ---
PATIENT NAME: MAGDALENO SIMS : 1945 GENDER: MALE VISIT DATE: 12/31/2016 DISCHARGE DATE: 12/31/16 1158 VISIT LOCKED DATE TIME: PHYSICIAN: VALENTINA HINES RESOURCE: VALENTINA HINES REASON FOR APPOINTMENT 1. RIGHT ARM PAIN HISTORY OF PRESENT ILLNESS HISTORY OF PRESENT ILLNESS: PAIN THE PATIENT DESCRIBES THE PAIN... 71 YEAR OLD MALE PATIENT WITH HISTORY OF CHRONIC RIGHT ARM PAIN. PATIENT DESCRIBES THE PAIN ACHING, SHARP, STABBING, AND HAVING IT ALL THE TIME WITH A PAIN SCORE OF 9/10. PATIENT REPORTS CONTAINING COUNSELING AND WOULD LIKE TO PROCEED WITH THE DCS TRIAL AT THIS TIME. PATIENT HAS RECEIVED CLEARANCE FROM THE RECHARGER. PATIENT HAS THE PSYCHOLOGIST EVALUATION WELL AT THE MRI'S. PATIENT DENIES UNEXPLAINABLE WEIGHT LOSS, FEVER, CHILLS, NEW CHANGES ON HER URINARY OR BOWEL CONTROL. FALL RISK SCREENING: SCREENING :NO FALLS IN THE PAST YEAR CURRENT MEDICATIONS TAKING METFORMIN HCL 1000 MG TABLET 1 TABLET WITH MEALS ORALLY TWICE A DAY TAKING METOPROLOL SUCCINATE TAKING ASPIRIN ADULT LOW STRENGTH 81 MG TABLET DELAYED RELEASE 1 TABLET ORALLY ONCE A DAY TAKING EZETIMIBE 10 MG TABLET 1 TABLET ORALLY ONCE A DAY NOT-TAKING KEFLEX 500 MG CAPSULE 1 CAPSULE ORALLY THREE TIMES DAILY NOT-TAKING LIDOCAINE 4 % CREAM 1 APPLICATION TO AFFECTED AREA NEEDED EXTERNALLY NEEDED FOR PAIN THREE TIMES A DAY UNKNOWN TRILEPTAL 150 MG TABLET DIRECTED ORALLY FOR PAIN BID UNKNOWN CIALIS 5 MG TABLET 1 TABLET ORALLY UNKNOWN CLOTRIMAZOLE-BETAMETHASONE 1-0.05 % LOTION 1 APPLICATION TO AFFECTED AREA EXTERNALLY TWICE A DAY MEDICATION LIST REVIEWED AND RECONCILED WITH THE PATIENT PAST MEDICAL HISTORY ED ALLERGIES DILAUDID: ITCHING REVIEW OF SYSTEMS REVIEWED BY: PROVIDER: VALENTINA HINES MD . CONSTITUTIONAL: ANY CHANGE IN YOUR MEDICAL CONDITION? NO . CHILLS NO . FEVER NO . INFECTION: DO YOU HAVE NEW INFECTIONS? NO . DO YOU HAVE HISTORY OF MRSA? NO . MUSCULOSKELETAL: ANY NEW PATTERNS OF PAIN OR NUMBNESS? NO . GASTROENTEROLOGY: ANY NEW CHANGE IN BOWEL CONTROL? NO . GENITOURINARY: ANY NEW CHANGE IN BLADDER CONTROL? NO . IS THERE A CHANCE YOU COULD BE ? NO . HEMATOLOGY/LYMPH: DO YOU TAKE ANY BLOOD THINNERS? (FOR EXAMPLE- COUMADIN, PLAVIX, AGGRENOX, PLATEL, PRADAXA, OR XARELTO) NO . WHEN WAS YOUR LAST DOSE? DATE: TIME: . NEUROLOGY: HAVE YOU FALLEN IN THE PAST 6 MONTHS? NO . ANY NEW EXTREMITY NUMBNESS OR WEAKNESS? NO . CARDIOLOGY: DO YOU HAVE A PACEMAKER OR DEFIBRILLATOR? NO . RESPIRATORY: HAVE YOU BEEN SICK IN THE PAST WEEK? NO . FEVER NO . FLU LIKE SYMPTOMS? NO . COUGH NO . INTEGUMENTARY: DO YOU HAVE ANY RASHES OR OPEN SORES? NO . ALLERGIC/IMMUNO: ARE YOU ALLERGIC TO SHELLFISH OR IV DYE? NO . ANY NEW ALLERGIES? NO . PSYCHIATRIC: DO YOU HAVE THOUGHTS OF HURTING YOURSELF OR SOMEONE ELSE? NO . ARE YOU ABUSED, NEGLECTED, OR IN AN UNSAFE ENVIRONMENT? NO . ENDOCRINOLOGY: ARE YOU DIABETIC? YES . OTHER: DO YOU NEED ANY PRESCRIPTIONS? NO . IF YES, PLEASE LIST: ____ . ANY NEW PROBLEMS WITH YOUR MEDICATIONS? NO . WHEN DID YOU LAST EAT? ____ . WHEN DID YOU LAST DRINK? ____ . WHAT DID YOU LAST DRINK? ____ . NAME OF PERSON DRIVING YOU HOME? ____ . DO YOU HAVE ANY OTHER QUESTIONS OR CONCERNS NO . VITAL SIGNS WT 226.8 LBS, HT 71", BMI 31.63 INDEX, BP 150/89 MM HG, HR 62 /MIN, RR 18 /MIN, TEMP 97.8 F, OXYGEN SAT % 98%, NA INITIALS SC 11:02, REVIEWED BY: [place]. EXAMINATION : PATIENT IS ALERT O X 3 AND COOPERATIVE. ALLODYNIA OVER THE LATERAL FOREARM. RADIAL NERVE NEURALGIA. STATUS POST TRAUMA RIGHT THUMB. PATIENT'S RIGHT ARMS IS WEAKER AT FLEXION AND EXTENSION COMPARED TO THE LEFT ARM. 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 TREATMENT NEURALGIA AND NEURITIS, UNSPECIFIED NOTES: WE DISCUSSED SEVERAL ISSUES WITH MR. SIMS'S PAIN MANAGEMENT CASE. AT THIS TIME THE PATIENT WILL CONTINUE WITH THE SAME MEDICATION REGIME BEFORE. I WOULD LIKE TO DISCUSS THE MRI'S WITH THE RADIOLOGIST TO CONFIRM THERE IS ENOUGH ROOM FOR THE LEADS TO PASS THROUGH THE CERVICAL AND THORACIC AREA. WE DISCUSSED MOVING FORWARD WITH THE DCS TRIAL ON 02/07/17 LONG THE PATIENT HAS RECEIVED CLEARANCE FORM THE COMMERCIAL REAL ESTATE ASSOCIATE AND HIS PRIMARY CARE DOCTOR. PATIENT IS AWARE THAT HE WILL NEEDS TO STOP ALL BLOOD THINNERS, ASPIRIN, IBUPROFEN AND FISH OIL 10 DAYS PRIOR TO THE TRIAL. PATIENT ALSO WILL NEED TO WEAN OFF ANY PAIN MEDICATIONS TO HAVE AN ACCURATE TRIAL. WE DISCUSSED THE RISKS, ALTNERATIVES, AND BENENFITS TO THE DCS TRIAL AND THE PATIENT WOULD LIKE TO PROCEED AT THIS TIME. INSTRUCTIONS WERE GIVEN, QUESTIONS WERE ANSWERED, PATIENT REPORTS UNDERSTANDING AND AGREES WITH THE PLAN. I, ALFONSO MELVIN, DOCUMENTED THE ABOVE INFORMATION ACTING A SCRIBE FOR DR. HINES. I HAVE REVIEWED THE ABOVE DOCUMENT, WRITTEN BY ALFONSO JONES AND I VERIFY THAT IT IS ACCURATE. PROCEDURE CODES FA211 ESTABILISHED PATIENT [facility] FACILITY CHARGE G8427 DOC MEDS VERIFIED W/PT OR RE G8730 PAIN ASSESS POS TOOL F/U PLAN DOC DISPOSITION & COMMUNICATION FOLLOW UP 3 WEEKS ELECTRONICALLY SIGNED BY VALENTINA HINES MD ON 01/18/2017 AT 12:12 PM EST DISCLAIMER : THIS IS A VISIT SUMMARY EXTRACTED FROM THE [employer] CHART. IT IS NOT A COPY OF THE [employer] PROGRESS NOTE. EDISON
== END ==
LOC: M PAIN 11:15
PROVIDERS: ATTEND Anesthesiology
DX: M79.2 Neuralgia and neuritis, unspecified (principal); Z88.5 Allergy status to narcotic agent; Z79.899 Other long term (current) drug therapy

== ENCOUNTER → 2016-12-31 | Outpatient (CLI) | payer MEDICARE, BC, OTHER ==
[2016-12-31 14:16] LABS: ANION GAP 8 MEQ/L (8-16); BLOOD UREA NITROGEN 17 MG/DL (7-18); CALCIUM LEVEL 9.6 MG/DL (8.8-10.2); CARBON DIOXIDE LEVEL 27 MEQ/L (21-32); CHLORIDE LEVEL 104 MEQ/L (98-107); CREATININE FOR GFR 0.88 MG/DL (0.70-1.30); GLOMERULAR FILTRATION RATE > 60.0 (>42); GLUCOSE, FASTING 112 MG/DL (83-110); POTASSIUM SERUM 4.1 MEQ/L (3.5-5.1); SODIUM LEVEL 139 MEQ/L (136-145)
== END ==
LOC: M LAB 13:00
PROVIDERS: ATTEND Internal Medicine
DX: E11.65 Type 2 diabetes mellitus with hyperglycemia (principal); I10 Essential (primary) hypertension

== ENCOUNTER → 2017-01-24 | Outpatient (CLI) | payer MEDICARE, OTHER ==
--- NOTE | 2017-01-26 00:38 | ECWPNPC ---
PATIENT NAME: MAGDALENO SIMS : 1945 GENDER: MALE VISIT DATE: 01/24/2017 DISCHARGE DATE: 01/24/17 1510 VISIT LOCKED DATE TIME: PHYSICIAN: VALENTINA HINES RESOURCE: VALENTINA HINES REASON FOR APPOINTMENT 1. ARM PAIN HISTORY OF PRESENT ILLNESS HISTORY OF PRESENT ILLNESS: PAIN THE PATIENT DESCRIBES THE PAIN... 71 YEAR OLD MALE PATIENT WITH HISTORY OF CHRONIC RIGHT ARM PAIN. PATIENT DESCRIBES THE PAIN ACHING, SHARP, STABBING, AND HAVING IT ALL THE TIME WITH A PAIN SCORE OF 9/10. PATIENT REPORTS CONTAINING COUNSELING AND WOULD LIKE TO PROCEED WITH THE DCS TRIAL AT THIS TIME. PATIENT HAS RECEIVED CLEARANCE FROM THE DREDGING INSPECTOR. PATIENT HAS THE PSYCHOLOGIST EVALUATION WELL AT THE MRI'S. PATIENT HAS RECEIVED CLEARANCE FROM THE DIRECTOR CASE MANAGEMENT AND WILL SEE HER PRIMARY CARE DOCTOR IN 2 DAYS FOR A CLEARANCE APPOINTMENT. PATIENT DENIES UNEXPLAINABLE WEIGHT LOSS, FEVER, CHILLS, NEW CHANGES ON HER URINARY OR BOWEL CONTROL. FALL RISK SCREENING: SCREENING :NO FALLS IN THE PAST YEAR CURRENT MEDICATIONS TAKING METFORMIN HCL 1000 MG TABLET 1 TABLET WITH MEALS ORALLY TWICE A DAY TAKING ASPIRIN ADULT LOW STRENGTH 81 MG TABLET DELAYED RELEASE 1 TABLET ORALLY ONCE A DAY TAKING EZETIMIBE 10 MG TABLET 1 TABLET ORALLY ONCE A DAY TAKING GLIMEPIRIDE 1 MG TABLET 1 TABLET WITH BREAKFAST OR THE FIRST MAIN MEAL OF THE DAY ORALLY TWICE A DAY TAKING METOPROLOL TARTRATE 25 MG TABLET 1 TABLET WITH FOOD ORALLY DAILY NOT-TAKING KEFLEX 500 MG CAPSULE 1 CAPSULE ORALLY THREE TIMES DAILY NOT-TAKING LIDOCAINE 4 % CREAM 1 APPLICATION TO AFFECTED AREA NEEDED EXTERNALLY NEEDED FOR PAIN THREE TIMES A DAY NOT-TAKING TRILEPTAL 150 MG TABLET DIRECTED ORALLY FOR PAIN BID NOT-TAKING CIALIS 5 MG TABLET 1 TABLET ORALLY NOT-TAKING CLOTRIMAZOLE-BETAMETHASONE 1-0.05 % LOTION 1 APPLICATION TO AFFECTED AREA EXTERNALLY TWICE A DAY NOT-TAKING METOPROLOL SUCCINATE MEDICATION LIST REVIEWED AND RECONCILED WITH THE PATIENT PAST MEDICAL HISTORY ED DIABETES ALLERGIES DILAUDID: ITCHING SURGICAL HISTORY RIGHT THUMB 01/29/05 LEFT KNEE AUGUST-2011 LEFT KNEE AUGUST 2013 COLONOSCOPY 04/2014 CIRCUMCISION 09/02/14 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 TOTAL LT KNEE RELACEMENT FOLLOWING INFECTION OF KNEE 03/2015 SOCIAL HISTORY GENERAL: TOBACCO USE ARE YOU A:FORMER SMOKER ANABAPTIST [id number] YARSANISM LEARNING BARRIERS / SPECIAL NEEDS CHANGE FROM LAST VISIT?NO BARRIERS TO LEARNING?NO HEARING IMPAIRED?YES :HEARING AIDES VISION IMPAIRED?NO COGNITIVELY IMPAIRED?NO READINESS TO LEARN?NO LEARNING PREFERENCES?NO LEARNING CAPABILITIES PRESENT?NO EMOTIONAL BARRIERS?NO SPECIAL DEVICES?NO CERTIFIED MORTICIAN NEEDED?NO PAIN CLINIC PFS, CLERGY, PUBLIC HEALTH REFERRALS HAS THE PATIENT BEEN EDUCATED REGARDING HIS/HER PLAN OF CARE?YES HAS THE PATIENT BEEN EDUCATED REGARDING PAIN, THE RISK FOR PAIN, THE IMPORTANCE OF EFFECTIVE PAIN MANAGEMENT, AND THE PAIN ASSESSMENT PROCESS?YES PATIENT: ____. ADVANCE DIRECTIVES HEALTH CARE PROXY?NO WOULD YOU LIKE MORE INFORMATION?NO DO YOU HAVE A DNR?NO WOULD YOU LIKE MORE INFORMATION?NO LIVING WILL?NO WOULD YOU LIKE MORE INFORMATION?NO POWER OF ENAMEL BURNER?NO WOULD YOU LIKE MORE INFORMATION?NO HOSPITALIZATION/MAJOR DIAGNOSTIC PROCEDURE DIVERTICULITIS 03/2014 SURGERIES REVIEW OF SYSTEMS REVIEWED BY: PROVIDER: VALENTINA HINES MD . CONSTITUTIONAL: ANY CHANGE IN YOUR MEDICAL CONDITION? NO . CHILLS NO . FEVER NO . INFECTION: DO YOU HAVE NEW INFECTIONS? NO . DO YOU HAVE HISTORY OF MRSA? NO . MUSCULOSKELETAL: ANY NEW PATTERNS OF PAIN OR NUMBNESS? NO . GASTROENTEROLOGY: ANY NEW CHANGE IN BOWEL CONTROL? NO . GENITOURINARY: ANY NEW CHANGE IN BLADDER CONTROL? NO . IS THERE A CHANCE YOU COULD BE ? NO . HEMATOLOGY/LYMPH: DO YOU TAKE ANY BLOOD THINNERS? (FOR EXAMPLE- COUMADIN, PLAVIX, AGGRENOX, PLATEL, PRADAXA, OR XARELTO) NO . WHEN WAS YOUR LAST DOSE? DATE: TIME: . NEUROLOGY: HAVE YOU FALLEN IN THE PAST 6 MONTHS? NO . ANY NEW EXTREMITY NUMBNESS OR WEAKNESS? NO . CARDIOLOGY: DO YOU HAVE A PACEMAKER OR DEFIBRILLATOR? NO . RESPIRATORY: HAVE YOU BEEN SICK IN THE PAST WEEK? NO . FEVER NO . FLU LIKE SYMPTOMS? NO . COUGH NO . INTEGUMENTARY: DO YOU HAVE ANY RASHES OR OPEN SORES? NO . ALLERGIC/IMMUNO: ARE YOU ALLERGIC TO SHELLFISH OR IV DYE? NO . ANY NEW ALLERGIES? NO . PSYCHIATRIC: DO YOU HAVE THOUGHTS OF HURTING YOURSELF OR SOMEONE ELSE? NO . ARE YOU ABUSED, NEGLECTED, OR IN AN UNSAFE ENVIRONMENT? NO . ENDOCRINOLOGY: ARE YOU DIABETIC? YES . OTHER: DO YOU NEED ANY PRESCRIPTIONS? NO . IF YES, PLEASE LIST: ____ . ANY NEW PROBLEMS WITH YOUR MEDICATIONS? NO . WHEN DID YOU LAST EAT? ____ . WHEN DID YOU LAST DRINK? ____ . WHAT DID YOU LAST DRINK? ____ . NAME OF PERSON DRIVING YOU HOME? ____ . DO YOU HAVE ANY OTHER QUESTIONS OR CONCERNS NO . VITAL SIGNS WT 230.0 LBS, HT 71", BMI 32.07 INDEX, BP 139/65 MM HG, HR 68 /MIN, RR 16 /MIN, TEMP 98.0 F, OXYGEN SAT % 96%, NA INITIALS TL 1301, REVIEWED BY: PAMELA. EXAMINATION : PATIENT IS ALERT O X 3 AND COOPERATIVE .THE PATIENT CAN EXTEND THE NECK 60 DEGREES AND FLEX THE NECK 50 DEGREES. THE PATIENT CAN DO LATERAL ROTATION TO BOTH SIDES APPROXIMATELY 60 DEGREES. HEAR-RR, NO MURMURS, NO GALLOPS. LUNGS-CTA. ALLODYNIA OVER THE LATERAL FOREARM. RADIAL NERVE NEURALGIA. STATUS POST TRAUMA RIGHT THUMB. PATIENT'S RIGHT ARMS IS WEAKER AT FLEXION AND EXTENSION COMPARED TO THE LEFT ARM. CERVICAL CT DONE 2016 SHOWS STENOSIS AT C4-C5, C5-C6. THORACIC CT DONE 05/04/2016 SHOWS DISC PROTRUSION AT DIFFERENT LEVELS. 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 TREATMENT NEURALGIA AND NEURITIS, UNSPECIFIED NOTES: WE DISCUSSED SEVERAL ISSUES WITH MR. SIMS'S PAIN MANAGEMENT CASE. AT THIS TIME I WOULD LIKE TO PREVIEW THE MRI WITH THE RADIOLOGIST AT THIS TIME. I WOULD ALSO LIKE TO REVIEW THE CLEARANCE FROM THE PRIMARY CARE DOCTOR SOON POSSIBLE. PATIENT WAS PRESCRIBED KEFLEX WHICH WILL BE USED ONCE THE PATIENT HAS RETURNED HOME FROM THE HOSPITAL. MR. SIMS WILL ALSO HAVE HYDROCODONE FOR PAIN MEDICATION FOR TUESDAY ONLY. PATIENT IS AWARE TO STOP THE MEDICATION FOR TUESDAY AND TUESDAY TO HAVE AN ACCURATE TRIAL. PATIENT IS AWARE HE WILL NEED TO STOP ASPIRIN AND ANY NSAID 10 DAYS PRIOR TO THE TRIAL. MR. SIMS WAS TOLD HE CAN USE TYLENOL NEEDED. PATIENT WAS REMINDED TO BRING CPAP TO THE HOSPITAL FOR THE TRIAL. WE DISCUSSED THE RISKS, BENEFITS, AND ALTERNATIVES OF THE DCS TRIAL WHICH INCLUDES NERVE DAMAGE PARALYSIS AND AMONG OTHERS AND THE PATIENT WOULD LIKE TO PROCEED AT THIS TIME. I WILL REVIEW THE IMAGINE STUDIES DONE WITH THE RADIOLOGIST. INSTRUCTIONS WERE GIVEN, QUESTIONS WERE ANSWERED, PATIENT REPORTS UNDERSTANDING AND AGREES WITH THE PLAN. I, ALFONSO MELVIN, DOCUMENTED THE ABOVE INFORMATION ACTING A SCRIBE FOR DR. HINES. I HAVE REVIEWED THE ABOVE DOCUMENT, WRITTEN BY ALFONSO JONES AND I VERIFY THAT IT IS ACCURATE. OTHERS REFILL KEFLEX CAPSULE, 500 MG, 1 CAPSULE, ORALLY (TO USE DURING DCS TRIAL), THREE TIMES DAILY, 10 DAY(S), 30, REFILLS 0 START HYDROCODONE-ACETAMINOPHEN TABLET, 5-325 MG, 1 TABLET NEEDED, ORALLY FOR PAIN (ONLY FOR TUESDAY TRIAL WEEK IF NEEDED), EVERY 6 HRS MDD3, 1 DAYS, 3, REFILLS 0 PROCEDURE CODES FA211 ESTABILISHED PATIENT [facility] FACILITY CHARGE G8427 DOC MEDS VERIFIED W/PT OR RE G6402 PAIN ASSESS POS TOOL F/U PLAN DOC DISPOSITION & COMMUNICATION FOLLOW UP DCS TRIAL 02/07/17 ELECTRONICALLY SIGNED BY VALENTINA HINES MD ON 01/25/2017 AT 06:30 PM EST DISCLAIMER : THIS IS A VISIT SUMMARY EXTRACTED FROM THE [employer] CHART. IT IS NOT A COPY OF THE [employer] PROGRESS NOTE. MTDD
== END ==
LOC: M PAIN 15:00
PROVIDERS: ATTEND Anesthesiology
DX: G89.29 Other chronic pain (principal); M79.2 Neuralgia and neuritis, unspecified; M79.601 Pain in right arm; E11.9 Type 2 diabetes mellitus without complications; Z88.8 Allergy status to other drugs, medicaments and biological substances; Z79.84 Long term (current) use of oral hypoglycemic drugs; Z79.82 Long term (current) use of aspirin; Z79.899 Other long term (current) drug therapy

== ENCOUNTER 2017-02-07 10:17 | Day surgery (SDC) | payer MEDICARE, BC, OTHER ==
[~2017-02-07] VITALS: Ht 180.3 cm; Wt 101.1 kg
[2017-02-07] VITALS (8 sets, daily range): BP systolic 117–153; BP diastolic 56–73; O2SAT 95–97
[~2017-02-07 10:17] MED LIST changes: +ASPI1TAB PO; +BUPIVACAINE HCL 0.25% 30 ML VIAL As Ordered ONE; +CEFAZOLIN SOD 1 GM in APPROPRIATE DILUENT 1 EA IV ONE; +CEPH500C PO; +EZET10TA PO; +GLIM2TAB PO; +ISOVUE-300 61% 50ML VIAL (Q9967) As Ordered ONE; +LIDOCAINE W/EPINEPHRINE 1% 20ML VIAL As Ordered ONE; +LR 1,000 ML IV ONE; +METF10004 PO; +METO1TAB87 PO
[2017-02-07] MEDS ORDERED: MIDAZOLAM INJ 2 MG/2 ML VIAL (J2250) As Ordered ONE (11:38)
[2017-02-07] MEDS ORDERED: fentaNYL 250 MCG/5 ML INJECTION (J3010) As Ordered ONE (11:38)
[2017-02-07] MEDS ORDERED: NORCO, ANEXSIA 5/325MG TABLET (HYDROcodone/ACETAMINOPHEN) PO PRN (13:30)
[2017-02-07] MEDS ORDERED: LR 1,000 ML IV SCH (13:30)
[2017-02-07] MEDS ORDERED: ONDANSETRON 4MG/2ML VIAL (J2405) IV PRN (13:30)
--- NOTE | 2017-02-07 13:44 | REP ---
Cervical spine fluoroscopy: 02/07/2017. Clinical history: Neuralgia. Findings: Patient for cervical dorsal column stimulator placement. Frontal and lateral views were provided for total of nine images. The last views show a single dorsal column stimulator in the cervical region with its lead at the distal tip at the level of C4. Fluoroscopy time: 4 minutes 19 seconds. Signed by James Castro MD 02/08/2017 07:47 P
--- NOTE | 2017-02-07 14:04 | REP ---
CERVICAL SPINE CROSS-TABLE LATERAL SINGLE VIEW: 02/07/2017 TECHNIQUE: Cross-table lateral performed with a repeat imaging using different radiographic technique. The dorsal column stimulator seen on the lateral view adjacent to the posterior margin of the neural canal is at the C4-5 level with its tip fairly well seen. No prevertebral swelling. No other significant finding. Signed by James Castro MD 02/08/2017 08:10 P
--- NOTE | 2017-02-07 17:54 | CR.PDOC ---
[facility] Consultation Consultation DATE OF CONSULTATION: Feb 07, 2017 at 10:17 REFERRING PROVIDER: Edwin Garza M.D. ATTENDING PHYSICIAN: Dr. Weinstein REASON FOR CONSULTATION/CHIEF COMPLAINT: . Medical management HISTORY OF PRESENT ILLNESS: . 71-year-old male with past medical history of hypertension, diabetes mellitus, dyslipidemia, and chronic right upper extremity pain was admitted to [facility] for a trial of spinal cord stimulator by pain management. The hospitalist service was consulted for medical comanagement. At this time, the patient states that he is feeling relatively well and denies any acute complaints of fevers, chills, chest pain, palpitations, abdominal pain, or any nausea/vomiting/diarrhea. ALLERGIES: Please see below. HOME MEDICATIONS: Please see below. PAST MEDICAL HISTORY: As noted above. 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 PHYSICAL EXAMINATION: VITAL SIGNS: Please see below. GENERAL APPEARANCE: . Awake, alert, oriented 3 HEENT: . Normocephalic, atraumatic RESPIRATORY: . Clear to auscultation bilaterally CARDIOVASCULAR: . Normal rate, normal S1, S2 ABDOMEN: . Soft, nontender, nondistended EXTREMITIES: . No swelling, or tenderness LABORATORY DATA: Please see below. ASSESSMENT/PLAN: chronic RUE Pain s/p Dorsal Column Stimulator Management as per the primary team Hypertension, stable Continue metoprolol Diabetes mellitus Insulin sliding scale Dyslipidemia Continue Zetia DVT prophylaxis SCDs/TEDs Vital Signs/I&O Vital Signs Date Time Temp Pulse Resp B/P (MAP) Pulse Ox O2 Delivery O2 Flow Rate FiO2 02/07/17 17:28 97 Room Air 02/07/17 17:27 98.0 76 18 123/64 (83) I&O- Last 24 Hours up to 6 AM 02/08/17 06:00 Intake Total 870 ml Output Total 225 ml Balance 645 ml Laboratory Data Labs 24H Laboratory Tests 2 02/07/17 11:14: Bedside Glucose (Misc Panel) 117H Allergies Coded Allergies: Hydromorphone (Verified Adverse Reaction, Intermediate, ITCHING, 02/07/17) Home Medications Scheduled Aspirin (Aspirin 81) 81 Mg Tab, 81 MG PO DAILY, #30 (Reported) Cephalexin Monohydrate (Cephalexin) 500 Mg Cap, 500 MG PO TID, (Reported) Ezetimibe (Ezetimibe) 10 Mg Tab, 10 MG PO DAILY, (Reported) Glimepiride (Glimepiride) 2 Mg Tab, 1 MG PO BID, (Reported) Metformin Hydrochloride (Metformin HCl) 1,000 Mg Tab, 1,000 MG PO BID, (Reported ) Metoprolol Tartrate (Metoprolol Tartrate) 25 Mg Tab, 25 MG PO DAILY, (Reported) EDWIN GARZA MD Feb 07, 2017 17:54
[2017-02-07] MEDS ORDERED: GLUCAGON FOR INJ 1 MG VIAL (J1610) SC PRN (18:00)
[2017-02-07] MEDS ORDERED: GLUCOSE 4 GM CHEW TABLET PO PRN (18:00)
[2017-02-07] MEDS ORDERED: DEXTROSE 50% 50 ML SYRINGE IV PRN (18:00)
[2017-02-07] MEDS: METOPROLOL TART 25 MG TABLET PO SCH (18:53)
[2017-02-07] MEDS: CEFAZOLIN SOD 1 GM in APPROPRIATE DILUENT 1 EA IV SCH (18:54)
[2017-02-07] MEDS: EZETIMIBE 10 MG TAB (ZETIA) PO SCH (18:54)
[2017-02-07] MEDS ORDERED: HumaLOG INSULIN (NovoLOG) PER UNIT SC SCH (21:00)
[2017-02-07] MEDS: NORCO, ANEXSIA 5/325MG TABLET (HYDROcodone/ACETAMINOPHEN) PO PRN (23:36)
[2017-02-08] VITALS: BP 104/55
[2017-02-08] MEDS: CEFAZOLIN SOD 1 GM in APPROPRIATE DILUENT 1 EA IV SCH (02:03)
[2017-02-08 04:00] VITALS: BP 98/54
[2017-02-08 07:26] LABS: MEAN CORPUSCULAR HEMOGLOBIN 31.4 pg (27.0-33.0); MEAN CORPUSCULAR HGB CONC 34.1 g/dl (32.0-36.5); MEAN CORPUSCULAR VOLUME 92.1 fl (80.0-96.0); PLATELET COUNT, AUTOMATED 318 10^3/uL (150-450); RED CELL DISTRIBUTION WIDTH 11.8 % (11.5-14.5); WHITE BLOOD COUNT 11.2 10^3/uL (4.0-10.0)
[2017-02-08] MEDS ORDERED: HumaLOG INSULIN (NovoLOG) PER UNIT SC SCH (07:30)
[2017-02-08 07:52] LABS: ALBUMIN/GLOBULIN RATIO 1.03 (1.00-1.93); ALKALINE PHOSPHATASE 62 U/L (45-117); ALT/SGPT 37 U/L (12-78); ANION GAP 7 MEQ/L (8-16); AST/SGOT 18 U/L (7-37); BILIRUBIN,TOTAL 0.6 MG/DL (0.2-1.0); BLOOD UREA NITROGEN 16 MG/DL (7-18); CARBON DIOXIDE LEVEL 28 MEQ/L (21-32); CHLORIDE LEVEL 104 MEQ/L (98-107); CREATININE FOR GFR 1.02 MG/DL (0.70-1.30); GLOMERULAR FILTRATION RATE > 60.0 (>42); GLUCOSE, FASTING 113 MG/DL (83-110); MAGNESIUM LEVEL 2.3 MG/DL (1.8-2.4); POTASSIUM SERUM 4.3 MEQ/L (3.5-5.1); SODIUM LEVEL 139 MEQ/L (136-145); TOTAL PROTEIN 7.9 GM/DL (6.4-8.2)
[2017-02-08 08:00] VITALS: BP 146/71
[2017-02-08 08:42] VITALS: BP 146/71
[2017-02-08] MEDS: METOPROLOL TART 25 MG TABLET PO SCH (08:42)
[2017-02-08] MEDS: NORCO, ANEXSIA 5/325MG TABLET (HYDROcodone/ACETAMINOPHEN) PO PRN (08:42)
[2017-02-08] MEDS: EZETIMIBE 10 MG TAB (ZETIA) PO SCH (08:54)
[2017-02-08 09:00] VITALS: O2SAT 96
--- NOTE | 2017-02-08 13:31 | IPNPDOC ---
Text Note Date of Service The patient was seen on 02/08/17. NOTE No acute events overnight. Denied Chest pain/sob/n/v/abd pain. Currently at baseline GENERAL APPEARANCE: . Awake, alert, oriented 3, NAD, obse HEENT: . Normocephalic, atraumatic RESPIRATORY: . Clear to auscultation bilaterally CARDIOVASCULAR: . Normal rate, normal S1, S2 ABDOMEN: . Soft, nontender, nondistended EXTREMITIES: . No swelling, or tenderness 71-year-old male with past medical history of hypertension, diabetes mellitus, dyslipidemia, and chronic right upper extremity pain was admitted to [facility] for a trial of spinal cord stimulator by pain management. The hospitalist service was consulted for medical comanagement. chronic RUE Pain s/p Dorsal Column Stimulator Management as per the primary team Hypertension, stable Continue metoprolol Diabetes mellitus Insulin sliding scale, resume PO med upon DC Dyslipidemia Continue Zetia DVT prophylaxis SCDs/TEDs, as per primary team Dispo likely DC by primary team today VS,Grant, I+O VS, Grant, I+O Laboratory Tests 02/08/17 06:44 Red Blood Count 4.94, Mean Corpuscular Volume 92.1, Mean Corpuscular Hemoglobin 31.4, Mean Corpuscular Hemoglobin Concent 34.1, Red Cell Distribution Width 11.8 , Calcium Level 9.0, Aspartate Amino Transf (AST/SGOT) 18, Alanine Aminotransferase (ALT/SGPT) 37, Alkaline Phosphatase 62, Total Bilirubin 0.6, Total Protein 7.9, Albumin 4.0 Vital Signs Date Time Temp Pulse Resp B/P (MAP) Pulse Ox O2 Delivery O2 Flow Rate FiO2 02/08/17 09:00 96 Room Air 02/08/17 08:42 70 146/71 02/08/17 08:42 18 02/08/17 08:00 97.8 I&O- Last 24 Hours up to 6 AM 02/09/17 06:00 Intake Total 480 ml Output Total 300 ml Balance 180 ml NOEMÍ GORDILLO MD Feb 08, 2017 13:31
--- NOTE | 2017-02-17 09:07 | RO ---
DATE OF PROCEDURE: 02/07/2017 PREOPERATIVE DIAGNOSES: Right upper extremity pain, right upper extremity neuropathy. POSTOPERATIVE DIAGNOSES: Right upper extremity pain, right upper extremity neuropathy. PROCEDURE: Spinal column stimulator trial. SURGEON: Dr. Kelby Weinstein PRICING DIRECTOR: ANESTHESIA: Local with monitored anesthesia care. PREOPERATIVE NOTE: Mr. Carbone is a 71-year-old male patient with history of right upper extremity pain. Patient has tried interventional management, medication management and the patient wishes to proceed. After discussing alternatives, he wanted to do a spinal column stimulator trial. his upper extremity pain can be well covered with a spinal column stimulator. I went through the risks, alternatives, and benefits associated with this procedure, and the patient expressed that he would like to proceed. Patient denies unexplainable weight loss, fevers, chills, changes in his urinary or bowel control. DESCRIPTION OF PROCEDURE NOTE: After consent was taken, patient was brought to the procedure room and placed in the prone position. Cervicothoracic area was cleaned with Betadine solution and draped aseptically. Procedure was done under sterile conditions. Under fluoroscopic guidance, target point was selected at interlaminar level of T1 and T2. Lidocaine was used to numb the skin and the subcutaneous tissue below it. Epidural Tuohy needle from [employer] was advanced until the right lamina of T2 was touched and then, by the loss of resistance technique, the epidural space was reached 6 cm deep into the skin by the loss of resistance technique. A 16-contact lead from [employer] was advanced through this Tuohy needle into the posterior medial aspect of the epidural space at the level of C4, C5, and C6. Then, I attached an extension to this lead, which was attached to the computer system of [employer], and I started programming. This was a simple 30-minute programming where I changed the position of the lead, the contact used, voltage used. When patient reports adequate coverage to his pain, I took films and patient for future reference. Lead was at the level of C4, C5, and C6 towards the right side in the posterior aspect of the epidural space. I removed the extension, remove the stylet, and then I secured the leads to the patient's skin using Steri-Strips and Tegaderm. There was no complication of the procedure. Patient received cefazolin 1 gram IV before we started the procedure. Patient was sent to recovery room moving extremities and doing well. Trial will start soon.
== END 2017-02-08 11:15 | disposition home or self-care (01) ==
LOC: M SDC 10:17 → M PED 14:28 → M SDC 02-08 11:15
PROVIDERS: ATTEND Anesthesiology
DX: M79.601 Pain in right arm (principal); G56.91 Unspecified mononeuropathy of right upper limb; I10 Essential (primary) hypertension; E78.5 Hyperlipidemia, unspecified; E11.9 Type 2 diabetes mellitus without complications; M54.5 Low back pain; G89.29 Other chronic pain; R29.898 Other symptoms and signs involving the musculoskeletal system; R06.83 Snoring; R06.02 Shortness of breath; K57.32 Diverticulitis of large intestine without perforation or abscess without bleeding; N40.1 Benign prostatic hyperplasia with lower urinary tract symptoms; I35.0 Nonrheumatic aortic (valve) stenosis; G47.33 Obstructive sleep apnea (adult) (pediatric); Z88.5 Allergy status to narcotic agent; Z79.899 Other long term (current) drug therapy; Z79.82 Long term (current) use of aspirin; Z79.84 Long term (current) use of oral hypoglycemic drugs; Z87.891 Personal history of nicotine dependence; Z96.652 Presence of left artificial knee joint; Z96.1 Presence of intraocular lens
CPT/HCPCS: 36415; 63650; 72040; 80053; 83735; 85027; 96374; C1778; J0690; J2250; J3010

== ENCOUNTER → 2017-02-11 | Outpatient (CLI) | payer MEDICARE, OTHER ==
[~2017-02-11] MED LIST changes: -BUPIVACAINE HCL 0.25% 30 ML VIAL As Ordered ONE; -CEFAZOLIN SOD 1 GM in APPROPRIATE DILUENT 1 EA IV ONE; -ISOVUE-300 61% 50ML VIAL (Q9967) As Ordered ONE; -LIDOCAINE W/EPINEPHRINE 1% 20ML VIAL As Ordered ONE; -LR 1,000 ML IV ONE
--- NOTE | 2017-02-28 23:30 | ECWPNPC ---
PATIENT NAME: MAGDALENO SIMS : 1945 GENDER: MALE VISIT DATE: 02/11/2017 DISCHARGE DATE: 02/11/17 1224 VISIT LOCKED DATE TIME: PHYSICIAN: VALENTINA HINES RESOURCE: VALENTINA HINES REASON FOR APPOINTMENT 1. ARM PAIN HISTORY OF PRESENT ILLNESS HISTORY OF PRESENT ILLNESS: PAIN THE PATIENT DESCRIBES THE PAIN... 71 YEAR OLD MALE PATIENT WITH HISTORY OF CHRONIC ARM PAIN. PATIENT DESCRIBES THE PAIN SHARP AND TENDER WITH A PAIN SCORE OF 2-3/10. PATIENT REPORTS HAVING OVER 80% RELIEF FROM THE PAIN FROM THE DCS TRIAL. PATIENT STATES THAT HE DOES NOT NEED TO USE MEDICATION DUE TO THE TRIAL GIVING HIM GOOD PAIN RELIEF. PATIENT WOULD LIKE TO PROCEED WITH A PERMANENT AT THIS TIME. MR. SIMS IS ALSO STILL SEEING A COUNSELOR AT THIS TIME. PATIENT DENIES UNEXPLAINABLE WEIGHT LOSS, FEVER, CHILLS, NEW CHANGES ON HIS URINARY OR BOWEL CONTROL. FALL RISK SCREENING: SCREENING :NO FALLS IN THE PAST YEAR CURRENT MEDICATIONS TAKING METFORMIN HCL 1000 MG TABLET 1 TABLET WITH MEALS ORALLY TWICE A DAY TAKING ASPIRIN ADULT LOW STRENGTH 81 MG TABLET DELAYED RELEASE 1 TABLET ORALLY ONCE A DAY TAKING EZETIMIBE 10 MG TABLET 1 TABLET ORALLY ONCE A DAY TAKING GLIMEPIRIDE 1 MG TABLET 1 TABLET WITH BREAKFAST OR THE FIRST MAIN MEAL OF THE DAY ORALLY TWICE A DAY TAKING METOPROLOL TARTRATE 25 MG TABLET 1 TABLET WITH FOOD ORALLY DAILY TAKING HYDROCODONE-ACETAMINOPHEN 5-325 MG TABLET 1 TABLET NEEDED ORALLY FOR PAIN (ONLY FOR TUESDAY TRIAL WEEK IF NEEDED) EVERY 6 HRS MDD3 TAKING KEFLEX 500 MG CAPSULE 1 CAPSULE ORALLY (TO USE DURING DCS TRIAL) THREE TIMES DAILY NOT-TAKING LIDOCAINE 4 % CREAM 1 APPLICATION TO AFFECTED AREA NEEDED EXTERNALLY NEEDED FOR PAIN THREE TIMES A DAY DISCONTINUED TRILEPTAL 150 MG TABLET DIRECTED ORALLY FOR PAIN BID DISCONTINUED CIALIS 5 MG TABLET 1 TABLET ORALLY DISCONTINUED CLOTRIMAZOLE-BETAMETHASONE 1-0.05 % LOTION 1 APPLICATION TO AFFECTED AREA EXTERNALLY TWICE A DAY DISCONTINUED METOPROLOL SUCCINATE MEDICATION LIST REVIEWED AND RECONCILED WITH THE PATIENT PAST MEDICAL HISTORY ED DIABETES ALLERGIES DILAUDID: ITCHING SOCIAL HISTORY GENERAL: TOBACCO USE ARE YOU A:FORMER SMOKER ALCOHOL SCREENING POINTS0 INTERPRETATIONNEGATIVE RECREATIONAL DRUG USE: NEVER . CAFFEINE CAFFEINE USE?YES HOW OFTEN AND HOW MUCH? DAILY COFFEE ADVENT [id number] RELIGIOUS LEARNING BARRIERS / SPECIAL NEEDS CHANGE FROM LAST VISIT?NO BARRIERS TO LEARNING?NO HEARING IMPAIRED?YES VISION IMPAIRED?NO COGNITIVELY IMPAIRED?NO :HEARING AIDES READINESS TO LEARN?NO LEARNING PREFERENCES?NO LEARNING CAPABILITIES PRESENT?NO EMOTIONAL BARRIERS?NO SPECIAL DEVICES?NO CERT PHARMACY TECH NEEDED?NO PAIN CLINIC PFS, CLERGY, PUBLIC HEALTH REFERRALS HAS THE PATIENT BEEN EDUCATED REGARDING HIS/HER PLAN OF CARE?YES HAS THE PATIENT BEEN EDUCATED REGARDING PAIN, THE RISK FOR PAIN, THE IMPORTANCE OF EFFECTIVE PAIN MANAGEMENT, AND THE PAIN ASSESSMENT PROCESS?YES PATIENT: ____. ADVANCE DIRECTIVES HEALTH CARE PROXY?NO WOULD YOU LIKE MORE INFORMATION?NO POWER OF HEMSTITCHER?NO DO YOU HAVE A DNR?NO WOULD YOU LIKE MORE INFORMATION?NO LIVING WILL?NO WOULD YOU LIKE MORE INFORMATION?NO WOULD YOU LIKE MORE INFORMATION?NO REVIEW OF SYSTEMS REVIEWED BY: PROVIDER: VALENTINA HINES MD . CONSTITUTIONAL: ANY CHANGE IN YOUR MEDICAL CONDITION? YES, POST OP DCS TRIAL HERE FOR LEAD PULL . CHILLS NO . FEVER NO . INFECTION: DO YOU HAVE NEW INFECTIONS? NO . DO YOU HAVE HISTORY OF MRSA? NO . MUSCULOSKELETAL: ANY NEW PATTERNS OF PAIN OR NUMBNESS? NO . GASTROENTEROLOGY: ANY NEW CHANGE IN BOWEL CONTROL? NO . GENITOURINARY: ANY NEW CHANGE IN BLADDER CONTROL? NO . IS THERE A CHANCE YOU COULD BE ? NO . HEMATOLOGY/LYMPH: DO YOU TAKE ANY BLOOD THINNERS? (FOR EXAMPLE- COUMADIN, PLAVIX, AGGRENOX, PLATEL, PRADAXA, OR XARELTO) NO . WHEN WAS YOUR LAST DOSE? DATE: TIME: . NEUROLOGY: HAVE YOU FALLEN IN THE PAST 6 MONTHS? NO . ANY NEW EXTREMITY NUMBNESS OR WEAKNESS? NO . CARDIOLOGY: DO YOU HAVE A PACEMAKER OR DEFIBRILLATOR? NO . RESPIRATORY: HAVE YOU BEEN SICK IN THE PAST WEEK? NO . FEVER NO . FLU LIKE SYMPTOMS? NO . COUGH NO . INTEGUMENTARY: DO YOU HAVE ANY RASHES OR OPEN SORES? NO . ALLERGIC/IMMUNO: ARE YOU ALLERGIC TO SHELLFISH OR IV DYE? NO . ANY NEW ALLERGIES? NO . PSYCHIATRIC: DO YOU HAVE THOUGHTS OF HURTING YOURSELF OR SOMEONE ELSE? NO . ARE YOU ABUSED, NEGLECTED, OR IN AN UNSAFE ENVIRONMENT? NO . ENDOCRINOLOGY: ARE YOU DIABETIC? YES . OTHER: DO YOU NEED ANY PRESCRIPTIONS? NO . IF YES, PLEASE LIST: ____ . ANY NEW PROBLEMS WITH YOUR MEDICATIONS? NO . WHEN DID YOU LAST EAT? ____ . WHEN DID YOU LAST DRINK? ____ . WHAT DID YOU LAST DRINK? ____ . NAME OF PERSON DRIVING YOU HOME? ____ . DO YOU HAVE ANY OTHER QUESTIONS OR CONCERNS NO . VITAL SIGNS WT 230.0 LBS, HT 71", BMI 32.07 INDEX, BP 170/77 MM HG, HR 70 /MIN, RR 18 /MIN, TEMP 98.1 F, OXYGEN SAT % 96%, NA INITIALS TL 0951, REVIEWED BY: CMELEVATED BP 170/77, PATIENT IS 4 DAYS POST OP AND IS IN QUITE A BIT OF PAIN- TL. EXAMINATION : PATIENT IS ALERT O X 3 AND COOPERATIVE. NO SIGNS OF INFECTION. LEADS CAME OUT INTACT. ASSESSMENTS NEURALGIA AND NEURITIS, UNSPECIFIED - M79.2 (PRIMARY) TREATMENT NEURALGIA AND NEURITIS, UNSPECIFIED NOTES: WE DISCUSSED SEVERAL ISSUES WITH MRS. SIMS'S PAIN MANAGEMENT CASE. AT THIS TIME THE PATIENT WOULD LIKE TO PROCEED WITH A PERMANENT DCS. WE DISCUSSED RECEIVING A CLEARANCE FIRST FROM THE PSYCHOLOGIST, ONCE I HAVE REVIEWED THIS I MAY REFER THE PATIENT TO YON. PATIENT IS AWARE OF THE RISKS AND BENEFITS OF THE SURGICAL IMPLANT SUCH INFECTION, PARALYZED, AND AND THE PATIENT WOULD LIKE TO PROCEED AT THIS TIME. , INSTRUCTIONS WERE GIVEN, QUESTIONS WERE ANSWERED, PATIENT REPORTS UNDERSTANDING AND AGREES WITH THE PLAN. I, ALFONSO MELVIN, DOCUMENTED THE ABOVE INFORMATION ACTING A SCRIBE FOR DR. HINES. I HAVE REVIEWED THE ABOVE DOCUMENT, WRITTEN BY ALFONSO JONES AND I VERIFY THAT IT IS ACCURATE. PROCEDURE CODES FA211 ESTABILISHED PATIENT [facility] CHARGE DISPOSITION & COMMUNICATION FOLLOW UP 6 WEEKS ELECTRONICALLY SIGNED BY VALENTINA HINES MD ON 02/28/2017 AT 07:00 PM EST DISCLAIMER : THIS IS A VISIT SUMMARY EXTRACTED FROM THE [employer] CHART. IT IS NOT A COPY OF THE [employer] PROGRESS NOTE. EDISON
== END ==
LOC: M PAIN 10:30
PROVIDERS: ATTEND Anesthesiology
DX: M79.2 Neuralgia and neuritis, unspecified (principal); G89.29 Other chronic pain; E11.9 Type 2 diabetes mellitus without complications; Z79.82 Long term (current) use of aspirin; Z79.84 Long term (current) use of oral hypoglycemic drugs; Z79.891 Long term (current) use of opiate analgesic; Z79.899 Other long term (current) drug therapy; Z88.8 Allergy status to other drugs, medicaments and biological substances; Z87.891 Personal history of nicotine dependence

== ENCOUNTER → 2017-04-22 | Outpatient (CLI) | payer MEDICARE, OTHER | LOC: M PAIN 09:45 | DX: M79.2 Neuralgia and neuritis, unspecified (principal); E11.9 Type 2 diabetes mellitus without complications; Z79.82 Long term (current) use of aspirin; Z79.84 Long term (current) use of oral hypoglycemic drugs; Z87.891 Personal history of nicotine dependence; Z88.8 Allergy status to other drugs, medicaments and biological substances | CPT/HCPCS: G0463 ==

== ENCOUNTER → 2017-05-20 | Outpatient (CLI) | payer MEDICARE, OTHER | LOC: M PAIN 10:15 | DX: M79.2 Neuralgia and neuritis, unspecified (principal); E11.9 Type 2 diabetes mellitus without complications; Z79.84 Long term (current) use of oral hypoglycemic drugs; Z79.82 Long term (current) use of aspirin; Z79.899 Other long term (current) drug therapy; Z88.8 Allergy status to other drugs, medicaments and biological substances; Z87.891 Personal history of nicotine dependence; Z96.653 Presence of artificial knee joint, bilateral | CPT/HCPCS: G0463 ==

== ENCOUNTER → 2017-06-17 | Outpatient (CLI) | payer MEDICARE, OTHER | LOC: M PAIN 10:15 | DX: G89.29 Other chronic pain (principal); G56.91 Unspecified mononeuropathy of right upper limb; M79.601 Pain in right arm; E11.9 Type 2 diabetes mellitus without complications; N52.9 Male erectile dysfunction, unspecified; Z79.82 Long term (current) use of aspirin; Z79.84 Long term (current) use of oral hypoglycemic drugs; Z79.899 Other long term (current) drug therapy; Z96.652 Presence of left artificial knee joint; Z87.891 Personal history of nicotine dependence; Z88.6 Allergy status to analgesic agent | CPT/HCPCS: G0463 ==

== ENCOUNTER → 2017-07-13 | Outpatient (CLI) | payer MEDICARE, BC, OTHER ==
[2017-07-13 14:36] LABS: BLOOD UREA NITROGEN 20 MG/DL (7-18)
[2017-07-13 14:36] LABS: CREATININE FOR GFR 1.04 MG/DL (0.70-1.30); GLOMERULAR FILTRATION RATE > 60.0 (>42)
== END ==
LOC: M LAB 13:01
DX: M79.631 Pain in right forearm (principal); M25.531 Pain in right wrist
CPT/HCPCS: 82565

== ENCOUNTER → 2017-08-17 | Outpatient (CLI) | payer MEDICARE, OTHER | LOC: M PAIN 10:00 | DX: G56.91 Unspecified mononeuropathy of right upper limb (principal); M79.601 Pain in right arm; E11.9 Type 2 diabetes mellitus without complications; Z79.82 Long term (current) use of aspirin; Z79.84 Long term (current) use of oral hypoglycemic drugs; Z79.899 Other long term (current) drug therapy; Z87.891 Personal history of nicotine dependence; Z88.8 Allergy status to other drugs, medicaments and biological substances | CPT/HCPCS: G0463 ==

== ENCOUNTER 2017-10-27 12:09 | Outpatient (RCR) | payer MEDICARE, BC, OTHER | END 2017-11-04 | LOC: M CR 12:09 | DX: I35.0 Nonrheumatic aortic (valve) stenosis (principal) | CPT/HCPCS: 93798 ==

== ENCOUNTER 2017-11-10 14:01 | Outpatient (RCR) | payer MEDICARE, BC, OTHER | END 2017-12-04 | LOC: M CR 14:01 | DX: Z95.2 Presence of prosthetic heart valve (principal) | CPT/HCPCS: 93798 ==

== ENCOUNTER 2017-12-05 12:55 | Outpatient (RCR) | payer MEDICARE, BC, OTHER | END 2018-01-04 | LOC: M CR 12:55 | DX: I35.0 Nonrheumatic aortic (valve) stenosis (principal) | CPT/HCPCS: 93798 ==

== ENCOUNTER 2018-01-05 14:58 | Outpatient (RCR) | payer MEDICARE, BC, OTHER | END 2018-02-03 | LOC: M CR 14:58 | DX: I35.0 Nonrheumatic aortic (valve) stenosis (principal); Z95.2 Presence of prosthetic heart valve | CPT/HCPCS: 93798 ==

== ENCOUNTER → 2019-01-15 | Outpatient (REF) | payer MEDICARE, OTHER ==
[~2019-01-15] MED LIST changes: -ASPI1TAB PO; +ASPI81TA26 PO; -EZET10TA PO; +EZET10TA21 PO; -GABA-282 PO; +GABA-843 PO; -GLIM2TAB PO; +GLIM2TAB2 PO; +OXCA150T21 PO; +OXYC10TA3 PO; -OXYC1TAB16 PO; +VIAG100T PO
[2019-01-15 12:47] LABS: HEMATOCRIT 44.7 % (42.0-52.0); HEMOGLOBIN 14.8 g/dl (13.5-17.5); MEAN CORPUSCULAR HEMOGLOBIN 31.5 pg (27.0-33.0); MEAN CORPUSCULAR HGB CONC 33.1 g/dl (32.0-36.5); MEAN CORPUSCULAR VOLUME 95.1 fl (80.0-96.0); PLATELET COUNT, AUTOMATED 230 10^3/uL (150-450)
[2019-01-15 13:19] LABS: ALBUMIN 4.2 GM/DL (3.2-5.2); ALT/SGPT 30 U/L (12-78); BILIRUBIN,TOTAL 0.8 MG/DL (0.2-1.0); BLOOD UREA NITROGEN 27 MG/DL (7-18); CALCIUM LEVEL 9.6 MG/DL (8.8-10.2); CARBON DIOXIDE LEVEL 25 MEQ/L (21-32); CHLORIDE LEVEL 105 MEQ/L (98-107); CHOLESTEROL LEVEL 115 MG/DL (<200); CHOLESTEROL RISK RATIO 2.446 (<5); CREATININE FOR GFR 1.12 MG/DL (0.70-1.30); FREE T4 0.83 NG/DL (0.76-1.46); GLOMERULAR FILTRATION RATE > 60.0 (>42); GLUCOSE, FASTING 119 MG/DL (70-100); HDL CHOLESTEROL 47 MG/DL (>40); LDL CHOLESTEROL 42 MG/DL (<100); NON-HDL-C 68 MG/DL; POTASSIUM SERUM 4.4 MEQ/L (3.5-5.1); SODIUM LEVEL 137 MEQ/L (136-145); TOTAL PROTEIN 7.9 GM/DL (6.4-8.2); TRIGLYCERIDES LEVEL 130 MG/DL (<150)
[2019-01-15 13:29] LABS: CREATININE, URINE 30.7 MG/DL; MALB URINE SIEMENS 6.3 MG/L; MAU/CREAT RATIO 20.5 MCG/MG (0.0-30.0)
== END ==
LOC: M LABNEURO 11:21
PROVIDERS: ATTEND General Practice
DX: E11.9 Type 2 diabetes mellitus without complications (principal); R53.81 Other malaise; E78.5 Hyperlipidemia, unspecified

== ENCOUNTER → 2019-03-29 | Outpatient (CLI) | payer MEDICARE, BC, OTHER ==
[~2019-03-29] MED LIST changes: -GLIM2TAB2 PO; +GLIM2TAB4 PO
[2019-03-29 12:41] LABS: CHOLESTEROL RISK RATIO 2.93 (<5)
== END ==
LOC: M LAB 09:55
PROVIDERS: ATTEND Internal Medicine Cardiovascular Disease
DX: I25.10 Atherosclerotic heart disease of native coronary artery without angina pectoris (principal); E78.49 Other hyperlipidemia; I10 Essential (primary) hypertension

== ENCOUNTER → 2019-03-29 | Outpatient (CLI) | payer MEDICARE, BC, OTHER ==
[2019-03-29 12:02] LABS: HEMATOCRIT 44.5 % (42.0-52.0); HEMOGLOBIN 14.4 g/dl (13.5-17.5); MEAN CORPUSCULAR HEMOGLOBIN 31.5 pg (27.0-33.0); MEAN CORPUSCULAR HGB CONC 32.4 g/dl (32.0-36.5); MEAN CORPUSCULAR VOLUME 97.4 fl (80.0-96.0); PLATELET COUNT, AUTOMATED 181 10^3/uL (150-450); RED BLOOD COUNT 4.57 10^6/uL (4.30-6.10); WHITE BLOOD COUNT 8.9 10^3/uL (4.0-10.0)
[2019-03-29 12:09] LABS: APPEARANCE, URINE CLEAR (CLEAR); BACTERIA, URINE AUTO NEGATIVE (NEGATIVE); BILIRUBIN, URINE AUTO NEGATIVE (NEGATIVE); BLOOD, URINE BLOOD NEGATIVE (NEGATIVE); COLOR, URINE YELLOW (YELLOW); GLUCOSE, URINE (UA) AUTO 1+ mg/dL (NEGATIVE); KETONE, URINE AUTO NEGATIVE (NEGATIVE); LEUKOCYTE ESTERASE, URINE AUTO NEGATIVE (NEGATIVE); MUCUS, URINE SMALL (NEGATIVE); NITRITE, URINE AUTO NEGATIVE (NEGATIVE); PROTEIN, URINE AUTO NEGATIVE (NEGATIVE); RBC, URINE AUTO 1 /HPF (0-3); SPECIFIC GRAVITY URINE AUTO 1.026 (1.002-1.035); SQUAMOUS EPITHELIAL CELL UR AU 0 /HPF (0-6); WBC, URINE AUTO 0 /HPF (0-3)
[2019-03-29 13:04] LABS: MALB URINE SIEMENS 23.4 MG/L; MAU/CREAT RATIO 11.5 MCG/MG (0.0-30.0)
[2019-03-29 13:06] LABS: ALBUMIN 4.1 GM/DL (3.2-5.2); ALT/SGPT 35 U/L (12-78); BILIRUBIN,TOTAL 0.5 MG/DL (0.2-1.0); BLOOD UREA NITROGEN 19 MG/DL (7-18); CALCIUM LEVEL 8.8 MG/DL (8.8-10.2); CARBON DIOXIDE LEVEL 24 MEQ/L (21-32); CHLORIDE LEVEL 108 MEQ/L (98-107); CHOLESTEROL LEVEL 114 MG/DL (<200); CREATININE FOR GFR 1.15 MG/DL (0.70-1.30); FREE T4 0.77 NG/DL (0.76-1.46); GLOMERULAR FILTRATION RATE > 60.0 (>42); GLUCOSE, FASTING 140 MG/DL (70-100); HDL CHOLESTEROL 41 MG/DL (>40); LDL CHOLESTEROL 51 MG/DL (<100); NON-HDL-C 73 MG/DL; POTASSIUM SERUM 4.6 MEQ/L (3.5-5.1); PROSTATIC SPECIFIC AG MONITOR 0.91 NG/ML (< 4.00); SODIUM LEVEL 141 MEQ/L (136-145); TOTAL PROTEIN 7.1 GM/DL (6.4-8.2); TRIGLYCERIDES LEVEL 110 MG/DL (<150); VITAMIN B12 LEVEL 413 PG/ML (247-911)
[2019-03-29 13:21] LABS: HEMOGLOBIN A1c 7.2 %
== END ==
LOC: M LAB 09:58
PROVIDERS: ATTEND General Practice
DX: E11.9 Type 2 diabetes mellitus without complications (principal); R53.81 Other malaise; N40.1 Benign prostatic hyperplasia with lower urinary tract symptoms; I25.10 Atherosclerotic heart disease of native coronary artery without angina pectoris; E78.49 Other hyperlipidemia; I10 Essential (primary) hypertension

== ENCOUNTER → 2019-08-01 | Outpatient (CLI) | payer MEDICARE, BC, OTHER ==
[2019-08-01 11:39] LABS: HEMATOCRIT 41.6 % (42.0-52.0); HEMOGLOBIN 14.1 g/dl (13.5-17.5); MEAN CORPUSCULAR HEMOGLOBIN 31.6 pg (27.0-33.0); MEAN CORPUSCULAR HGB CONC 33.9 g/dl (32.0-36.5); MEAN CORPUSCULAR VOLUME 93.3 fl (80.0-96.0); PLATELET COUNT, AUTOMATED 216 10^3/uL (150-450); RED BLOOD COUNT 4.46 10^6/uL (4.30-6.10); WHITE BLOOD COUNT 8.7 10^3/uL (4.0-10.0)
[2019-08-01 12:05] LABS: HEMOGLOBIN A1c 7.8 %
[2019-08-01 12:19] LABS: ALBUMIN 4.2 GM/DL (3.2-5.2); ALT/SGPT 38 U/L (12-78); BILIRUBIN,TOTAL 0.9 MG/DL (0.2-1.0); BLOOD UREA NITROGEN 22 MG/DL (7-18); CALCIUM LEVEL 9.1 MG/DL (8.8-10.2); CARBON DIOXIDE LEVEL 26 MEQ/L (21-32); CHLORIDE LEVEL 105 MEQ/L (98-107); CHOLESTEROL LEVEL 108 MG/DL (<200); CHOLESTEROL RISK RATIO 2.842 (<5); CREATININE FOR GFR 1.13 MG/DL (0.70-1.30); FREE T4 0.91 NG/DL (0.76-1.46); GLOMERULAR FILTRATION RATE > 60.0 (>42); GLUCOSE, FASTING 140 MG/DL (70-100); HDL CHOLESTEROL 38 MG/DL (>40); LDL CHOLESTEROL 45 MG/DL (<100); NON-HDL-C 70 MG/DL; POTASSIUM SERUM 4.5 MEQ/L (3.5-5.1); PROSTATIC SPECIFIC AG MONITOR 0.79 NG/ML (< 4.00); SODIUM LEVEL 136 MEQ/L (136-145); TOTAL PROTEIN 7.3 GM/DL (6.4-8.2); TRIGLYCERIDES LEVEL 124 MG/DL (<150); VITAMIN B12 LEVEL 525 PG/ML (247-911)
[2019-08-01 12:23] LABS: MALB URINE SIEMENS 10.4 MG/L; MAU/CREAT RATIO 5.8 MCG/MG (0.0-30.0)
[2019-08-01 13:02] LABS: APPEARANCE, URINE CLEAR (CLEAR); BACTERIA, URINE AUTO NEGATIVE (NEGATIVE); BILIRUBIN, URINE AUTO NEGATIVE (NEGATIVE); BLOOD, URINE BLOOD NEGATIVE (NEGATIVE); COLOR, URINE YELLOW (YELLOW); GLUCOSE, URINE (UA) AUTO NEGATIVE (NEGATIVE); KETONE, URINE AUTO NEGATIVE (NEGATIVE); LEUKOCYTE ESTERASE, URINE AUTO NEGATIVE (NEGATIVE); MUCUS, URINE SMALL (NEGATIVE); NITRITE, URINE AUTO NEGATIVE (NEGATIVE); PROTEIN, URINE AUTO NEGATIVE (NEGATIVE); RBC, URINE AUTO 0 /HPF (0-3); SQUAMOUS EPITHELIAL CELL UR AU 0 /HPF (0-6); UROBILINOGEN, URINE AUTO 0.2 mg/dL (0.0-2.0); WBC, URINE AUTO 0 /HPF (0-3)
== END ==
LOC: M LAB 10:45
PROVIDERS: ATTEND General Practice
DX: E11.9 Type 2 diabetes mellitus without complications (principal); R53.81 Other malaise; N40.1 Benign prostatic hyperplasia with lower urinary tract symptoms; E78.5 Hyperlipidemia, unspecified; N13.9 Obstructive and reflux uropathy, unspecified

== ENCOUNTER 2019-10-28 11:39 | Emergency (ER) | payer MEDICARE, BC, OTHER ==
[~2019-10-28] VITALS: Ht 180.3 cm; Wt 102.5 kg
[2019-10-28] MEDS ORDERED: VALS1TAB66 PO (12:02)
[2019-10-28] MEDS ORDERED: LIVA4TAB PO (12:02)
[2019-10-28] MEDS ORDERED: GLIM4TAB5 PO (12:02)
[2019-10-28] MEDS ORDERED: GLIM2TAB4 PO (12:02)
[2019-10-28 12:33] LABS: BASO % 0.2 % (0.0-1.0); EOS # 0.2 10^3/uL (0.0-0.5); EOS % 1.5 % (0.0-3.0); HEMATOCRIT 42.4 % (42.0-52.0); HEMOGLOBIN 14.4 g/dl (13.5-17.5); LYMPH # 1.7 10^3/uL (1.5-5.0); LYMPH % 16.4 % (24.0-44.0); MEAN CORPUSCULAR VOLUME 94.2 fl (80.0-96.0); MONO # 0.6 10^3/uL (0.0-0.8); MONO % 6.2 % (0.0-5.0); NEUTROPHILS # 7.8 10^3/uL (1.5-8.5); NEUTROPHILS % 75.3 % (36.0-66.0); PLATELET COUNT, AUTOMATED 215 10^3/uL (150-450); WHITE BLOOD COUNT 10.3 10^3/uL (4.0-10.0)
[2019-10-28 13:14] LABS: ALBUMIN 4.3 GM/DL (3.2-5.2); ALT/SGPT 29 U/L (12-78); BILIRUBIN,DIRECT 0.1 MG/DL (0.0-0.2); BILIRUBIN,TOTAL 0.5 MG/DL (0.2-1.0); BLOOD UREA NITROGEN 18 MG/DL (7-18); CALCIUM LEVEL 9.8 MG/DL (8.8-10.2); CARBON DIOXIDE LEVEL 28 MEQ/L (21-32); CHLORIDE LEVEL 105 MEQ/L (98-107); CK-MB VALUE MASS 2.3 NG/ML (<3.6); CPK CREATINE PHOSPHOKINASE 120 U/L (39-308); CREATININE FOR GFR 1.22 MG/DL (0.70-1.30); GLOMERULAR FILTRATION RATE > 60.0 (>42); GLUCOSE, FASTING 251 MG/DL (70-100); LIPASE 142 U/L (73-393); MB/CK RELATIVE INDEX 1.92 (< OR =4); POTASSIUM SERUM 4.3 MEQ/L (3.5-5.1); SODIUM LEVEL 137 MEQ/L (136-145); TOTAL PROTEIN 7.6 GM/DL (6.4-8.2); TROPONIN I < 0.02 NG/ML (< 0.10)
[2019-10-28] MEDS ORDERED: ISOVUE-370 76% 100ML VIAL As Ordered ONE (13:25)
[2019-10-28 15:41] VITALS: BP 166/75
[2019-10-28] MEDS ORDERED: IBUPROFEN 600MG TAB PO ONE (16:30)
--- NOTE | 2019-11-14 19:14 | ECGEPIP ---
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
--- NOTE | 2019-11-30 08:10 | REP ---
PORTABLE CHEST X-RAY: SINGLE VIEW HISTORY: Chest pain. FINDINGS: Monitoring electrodes overlie the chest. The lungs are symmetrically aerated and clear. Pleural angles are sharp. There are surgical clips in the right paramediastinal region. The aorta is somewhat tortuous. Heart size is normal. Pulmonary vasculature is not increased. IMPRESSION: No active disease. MTDD
--- NOTE | 2019-11-30 08:11 | REP ---
CT THORACIC AORTOGRAM WITH INTRAVENOUS (IV) CONTRAST HISTORY: Rule out thoracic aortic aneurysm. COMPARISON: Chest x-ray 02/[address] CONTRAST DOSE: 75 mL of intravenous Isovue-370. CT FINDINGS: Preliminary piercing artist radiograph demonstrates that the patient is status post aortic valve replacement. There is good opacification of the thoracic aorta and there is no evidence of thoracic aortic aneurysm or dissection. The ascending aorta measures 3.4 cm in anteroposterior dimension at the level of the right main pulmonary artery. There is some vascular calcification. There is no filling defect seen in the pulmonary arterial tree. No pleural or pericardial effusion is seen. Normal adrenal glands. The visualized upper abdominal structures are unremarkable except for a small cyst in the upper pole of the left kidney. No mass or mediastinal adenopathy is observed. No hilar adenopathy is seen. There is no evidence of infiltrate in the lung gonzalez. No pulmonary mass lesion is seen. No significant pulmonary nodule is appreciated. There is a 4-mm pleural-based nodular opacity in the right lower lobe and another 4-mm nodule is seen in the left lower lobe. No bony destructive lesion is appreciated. IMPRESSION: No evidence of thoracic aortic aneurysm or dissection. No active cardiopulmonary disease. Status post aortic valve replacement. Some vascular calcification. Small cyst upper pole left kidney. MTDD
== END 2019-10-28 16:45 | disposition home or self-care (01) ==
LOC: M ED 11:39
DX: R07.89 Other chest pain (principal); R94.31 Abnormal electrocardiogram [ECG] [EKG]; I25.10 Atherosclerotic heart disease of native coronary artery without angina pectoris; E11.9 Type 2 diabetes mellitus without complications; I10 Essential (primary) hypertension; E78.5 Hyperlipidemia, unspecified; J44.9 Chronic obstructive pulmonary disease, unspecified; G47.33 Obstructive sleep apnea (adult) (pediatric); Z98.61 Coronary angioplasty status; F17.200 Nicotine dependence, unspecified, uncomplicated; Z79.82 Long term (current) use of aspirin; Z79.84 Long term (current) use of oral hypoglycemic drugs; Z79.899 Other long term (current) drug therapy
CPT/HCPCS: 71045; 71275; 80048; 80076; 82550; 82553; 83690; 84484; 85025; 93005; 93041; 94760; 99284; Q9967

== ENCOUNTER → 2020-01-11 | Outpatient (CLI) | payer MEDICARE, BC, OTHER ==
[~2020-01-11] MED LIST changes: +GLIM4TAB5 PO; +LIVA4TAB PO; +VALS1TAB66 PO
[2020-01-11 14:54] LABS: APPEARANCE, URINE CLEAR (CLEAR); BACTERIA, URINE AUTO NEGATIVE (NEGATIVE); BILIRUBIN, URINE AUTO NEGATIVE (NEGATIVE); BLOOD, URINE BLOOD NEGATIVE (NEGATIVE); COLOR, URINE YELLOW (YELLOW); GLUCOSE, URINE (UA) AUTO NEGATIVE (NEGATIVE); KETONE, URINE AUTO NEGATIVE (NEGATIVE); LEUKOCYTE ESTERASE, URINE AUTO NEGATIVE (NEGATIVE); MUCUS, URINE SMALL (NEGATIVE); NITRITE, URINE AUTO NEGATIVE (NEGATIVE); PROTEIN, URINE AUTO NEGATIVE (NEGATIVE); RBC, URINE AUTO 0 /HPF (0-3); SPECIFIC GRAVITY URINE AUTO 1.016 (1.002-1.035); SQUAMOUS EPITHELIAL CELL UR AU 0 /HPF (0-6); UROBILINOGEN, URINE AUTO 0.2 mg/dL (0.0-2.0); WBC, URINE AUTO 0 /HPF (0-3)
[2020-01-11 15:25] LABS: ALBUMIN 4.3 GM/DL (3.2-5.2); ALT/SGPT 35 U/L (12-78); BILIRUBIN,TOTAL 0.8 MG/DL (0.2-1.0); BLOOD UREA NITROGEN 20 MG/DL (7-18); CALCIUM LEVEL 9.4 MG/DL (8.8-10.2); CARBON DIOXIDE LEVEL 25 MEQ/L (21-32); CHLORIDE LEVEL 106 MEQ/L (98-107); CHOLESTEROL LEVEL 116 MG/DL (<200); CHOLESTEROL RISK RATIO 2.761 (<5); CREATININE FOR GFR 1.04 MG/DL (0.70-1.30); GLOMERULAR FILTRATION RATE > 60.0 (>42); GLUCOSE, FASTING 103 MG/DL (70-100); HDL CHOLESTEROL 42 MG/DL (>40); LDL CHOLESTEROL 37 MG/DL (<100); NON-HDL-C 74 MG/DL; POTASSIUM SERUM 4.3 MEQ/L (3.5-5.1); SODIUM LEVEL 137 MEQ/L (136-145); TOTAL PROTEIN 7.1 GM/DL (6.4-8.2); TRIGLYCERIDES LEVEL 186 MG/DL (<150)
[2020-01-11 15:26] LABS: MALB URINE SIEMENS 7.2 MG/L
[2020-01-11 15:43] LABS: HEMOGLOBIN A1c 7.1 %
== END ==
LOC: M LAB 14:04
PROVIDERS: ATTEND General Practice
DX: E78.5 Hyperlipidemia, unspecified (principal); N40.1 Benign prostatic hyperplasia with lower urinary tract symptoms; E11.65 Type 2 diabetes mellitus with hyperglycemia; R53.81 Other malaise

== ENCOUNTER → 2020-01-11 | Outpatient (CLI) | payer MEDICARE, BC, OTHER ==
[2020-01-11 15:19] LABS: BLOOD UREA NITROGEN 19 MG/DL (7-18); CALCIUM LEVEL 9.7 MG/DL (8.8-10.2); CARBON DIOXIDE LEVEL 26 MEQ/L (21-32); CHLORIDE LEVEL 106 MEQ/L (98-107); CHOLESTEROL LEVEL 114 MG/DL (<200); CREATININE FOR GFR 0.96 MG/DL (0.70-1.30); GLOMERULAR FILTRATION RATE > 60.0 (>42); GLUCOSE, FASTING 101 MG/DL (70-100); HDL CHOLESTEROL 40 MG/DL (>40); LDL CHOLESTEROL 37 MG/DL (<100); NON-HDL-C 74 MG/DL; POTASSIUM SERUM 4.4 MEQ/L (3.5-5.1); SODIUM LEVEL 138 MEQ/L (136-145); TRIGLYCERIDES LEVEL 185 MG/DL (<150)
== END ==
LOC: M LAB 14:06
PROVIDERS: ATTEND Physician Assistant
DX: E11.65 Type 2 diabetes mellitus with hyperglycemia (principal)

== ENCOUNTER 2020-07-24 14:04 | Emergency (ER) | payer MEDICARE, BC, OTHER ==
[~2020-07-24] VITALS: Ht 180.3 cm; Wt 100.0 kg
[~2020-07-24 14:04] MED LIST changes: +GABA-282 PO; -GABA-843 PO
--- NOTE | 2020-07-24 14:34 | REP ---
INDICATION: injury, pain COMPARISON: None. TECHNIQUE: Four views right foot. FINDINGS: There is no evidence of acute fracture, dislocation, or intrinsic bone disease.There are mild scattered vascular calcifications. Rounded ossific density along the dorsal distal navicular bone may represent an old chip fracture. There is mild dorsal navicular spurring. IMPRESSION: No acute fracture or dislocation. <Electronically signed by Perfecto Mazariegos > 07/24/20 [id number]
[2020-07-24 16:34] LABS: BASO % 0.3 % (0.0-1.0); EOS # 0.2 10^3/uL (0.0-0.5); EOS % 2.4 % (0.0-3.0); HEMATOCRIT 43.6 % (42.0-52.0); HEMOGLOBIN 14.6 g/dl (13.5-17.5); LYMPH # 2.1 10^3/uL (1.5-5.0); LYMPH % 21.2 % (24.0-44.0); MEAN CORPUSCULAR HEMOGLOBIN 31.3 pg (27.0-33.0); MEAN CORPUSCULAR HGB CONC 33.5 g/dl (32.0-36.5); MEAN CORPUSCULAR VOLUME 93.4 fl (80.0-96.0); MONO # 0.8 10^3/uL (0.0-0.8); MONO % 8.3 % (2.0-8.0); NEUTROPHILS # 6.7 10^3/uL (1.5-8.5); NEUTROPHILS % 67.4 % (36.0-66.0); PLATELET COUNT, AUTOMATED 236 10^3/uL (150-450); RED BLOOD COUNT 4.67 10^6/uL (4.30-6.10); WHITE BLOOD COUNT 9.9 10^3/uL (4.0-10.0)
--- NOTE | 2020-07-24 16:47 | REP ---
INDICATION: fall, abrasion, tender to palpation TECHNIQUE: Four views FINDINGS: There is mild tricompartmental marginal osteophytosis particularly affecting the medial compartment to the greatest degree and seen in conjunction with medial compartmental and patellofemoral joint space narrowing. Calcifications are seen in the lateral compartment. IMPRESSION: Chronic changes as described above. Lateral meniscal calcifications likely secondary to calcified meniscal degenerative changes. <Electronically signed by Vitaliy Robles > 07/24/20 [id number]
[2020-07-24 16:51] LABS: C REACTIVE PROTEIN QUANTITATIV < 0.30 MG/DL (0.00-0.30); URIC ACID 5.6 MG/DL (3.5-7.2)
--- NOTE | 2020-07-24 17:00 | REP ---
INDICATION: severe pain swelling top foot, dropped board on it. COMPARISON: Radiographs today. TECHNIQUE: Axial CT right foot performed with sagittal and coronal reconstruction images. FINDINGS: There is no evidence of acute fracture or dislocation. A smoothly marginated subcentimeter calcification adjacent to the dorsal distal navicular bone may represent an old chip fracture. There is adjacent spurring and subcortical cystic change in the navicular bone. There is mild inferior calcaneal spurring. No bone lesion is seen. Diffuse vascular calcifications are present. A soft tissue hematoma is seen in the dorsal soft tissues at the level of the proximal metatarsals measuring approximately 3.9 x 1.6 cm. IMPRESSION: No acute fracture or dislocation. Focal hematoma in the dorsal soft tissues at the level of the proximal metatarsals measuring 3.9 x 1.6 cm. <Electronically signed by Perfecto Mazariegos > 07/24/20 [id number]
[2020-07-24 17:02] LABS: ERYTHROCYTE SEDIMENTATION RATE 22 mm/hr (0-20)
--- NOTE | 2020-07-24 17:09 | REP ---
INDICATION: swelling pain down leg. COMPARISON: None. TECHNIQUE: Multiple ultrasonographic images of the deep venous structures of the right thigh were obtained from the common femoral vein to the popliteal vein along with Doppler interrogation and color flow Doppler images. FINDINGS: There is no abnormal echogenic material seen within any of the visualized deep venous structures that would suggest acute thrombosis. Coaptation is unremarkable throughout. Doppler interrogation shows an expected response to respiratory variability and augmentation. The color flow images show what appears to be a normal vascular pattern throughout. IMPRESSION: There is no ultrasonographic evidence of deep venous thrombosis involving any of the visualized deep venous structures of the right thigh, as described above. <Electronically signed by Vitaliy Robles > 07/24/20 [id number]
[2020-07-24 17:53] VITALS: BP 159/77
== END 2020-07-24 17:56 | disposition home or self-care (01) ==
LOC: M ED 14:04
DX: S80.211A Abrasion, right knee, initial encounter (principal); S00.81XA Abrasion of other part of head, initial encounter; S90.31XA Contusion of right foot, initial encounter; W19.XXXA Unspecified fall, initial encounter; Y92.009 Unspecified place in unspecified non-institutional (private) residence as the place of occurrence of the external cause; Y93.9 Activity, unspecified; Y99.9 Unspecified external cause status; R22.41 Localized swelling, mass and lump, right lower limb; I25.2 Old myocardial infarction; E11.9 Type 2 diabetes mellitus without complications; G47.33 Obstructive sleep apnea (adult) (pediatric); E78.5 Hyperlipidemia, unspecified; I10 Essential (primary) hypertension; Z79.82 Long term (current) use of aspirin; Z79.84 Long term (current) use of oral hypoglycemic drugs; Z79.899 Other long term (current) drug therapy; Z88.5 Allergy status to narcotic agent

== ENCOUNTER → 2020-08-28 | Outpatient (CLI) | payer MEDICARE, BC, OTHER ==
[2020-08-28 12:41] LABS: CHOLESTEROL RISK RATIO 3.052 (<5)
== END ==
LOC: M LAB 11:27
PROVIDERS: ATTEND General Practice
DX: I25.10 Atherosclerotic heart disease of native coronary artery without angina pectoris (principal); E78.49 Other hyperlipidemia

== ENCOUNTER → 2020-09-26 | Outpatient (CLI) | payer MEDICARE, BC, OTHER ==
[2020-09-26 12:29] LABS: HEMATOCRIT 44.5 % (42.0-52.0); HEMOGLOBIN 14.7 g/dl (13.5-17.5); MEAN CORPUSCULAR HEMOGLOBIN 30.6 pg (27.0-33.0); MEAN CORPUSCULAR VOLUME 92.5 fl (80.0-96.0); PLATELET COUNT, AUTOMATED 206 10^3/uL (150-450); RED BLOOD COUNT 4.81 10^6/uL (4.30-6.10); WHITE BLOOD COUNT 8.7 10^3/uL (4.0-10.0)
[2020-09-26 12:33] LABS: APPEARANCE, URINE CLEAR (CLEAR); BACTERIA, URINE AUTO NEGATIVE (NEGATIVE); BILIRUBIN, URINE AUTO NEGATIVE (NEGATIVE); BLOOD, URINE BLOOD NEGATIVE (NEGATIVE); COLOR, URINE YELLOW (YELLOW); GLUCOSE, URINE (UA) AUTO 1+ mg/dL (NEGATIVE); KETONE, URINE AUTO NEGATIVE (NEGATIVE); LEUKOCYTE ESTERASE, URINE AUTO NEGATIVE (NEGATIVE); MUCUS, URINE SMALL (NEGATIVE); NITRITE, URINE AUTO NEGATIVE (NEGATIVE); PROTEIN, URINE AUTO NEGATIVE (NEGATIVE); RBC, URINE AUTO 1 /HPF (0-3); SPECIFIC GRAVITY URINE AUTO 1.023 (1.002-1.035); SQUAMOUS EPITHELIAL CELL UR AU 0 /HPF (0-6); UROBILINOGEN, URINE AUTO 0.2 mg/dL (0.0-2.0); WBC, URINE AUTO 0 /HPF (0-3)
[2020-09-26 12:48] LABS: HEMOGLOBIN A1c 8.3 %
[2020-09-26 13:01] LABS: ALBUMIN 4.2 GM/DL (3.2-5.2); ALT/SGPT 42 U/L (12-78); BILIRUBIN,TOTAL 0.6 MG/DL (0.2-1.0); BLOOD UREA NITROGEN 17 MG/DL (7-18); CARBON DIOXIDE LEVEL 27 MEQ/L (21-32); CHLORIDE LEVEL 106 MEQ/L (98-107); CHOLESTEROL LEVEL 124 MG/DL (<200); CHOLESTEROL RISK RATIO 3.024 (<5); CREATININE FOR GFR 1.01 MG/DL (0.70-1.30); GLOMERULAR FILTRATION RATE > 60.0 (>42); GLUCOSE, FASTING 169 MG/DL (70-100); HDL CHOLESTEROL 41 MG/DL (>40); LDL CHOLESTEROL 53 MG/DL (<100); NON-HDL-C 83 MG/DL; POTASSIUM SERUM 4.8 MEQ/L (3.5-5.1); PROSTATIC SPECIFIC AG MONITOR 1.03 NG/ML (< 4.00); SODIUM LEVEL 140 MEQ/L (136-145); TOTAL PROTEIN 7.2 GM/DL (6.4-8.2); TRIGLYCERIDES LEVEL 151 MG/DL (<150)
== END ==
LOC: M LAB 12:00
PROVIDERS: ATTEND General Practice
DX: E11.9 Type 2 diabetes mellitus without complications (principal); N40.1 Benign prostatic hyperplasia with lower urinary tract symptoms; E78.5 Hyperlipidemia, unspecified; R53.81 Other malaise

== ENCOUNTER → 2021-02-02 | Outpatient (REF) | payer MEDICARE, BC, OTHER | LOC: M LAB REF 13:50 | PROVIDERS: ATTEND Nurse Practitioner Family | DX: L82.1 Other seborrheic keratosis (principal) ==

== ENCOUNTER 2021-09-11 11:36 | Emergency (ER) | payer MEDICARE, BC, OTHER ==
[~2021-09-11] VITALS: Ht 180.3 cm; Wt 94.3 kg
[2021-09-11 14:59] VITALS: BP 141/64
== END 2021-09-11 15:07 | disposition home or self-care (01) ==
LOC: M ED 11:36
DX: T83.038A Leakage of other urinary catheter, initial encounter (principal); N40.0 Benign prostatic hyperplasia without lower urinary tract symptoms; E11.9 Type 2 diabetes mellitus without complications; I10 Essential (primary) hypertension; E78.5 Hyperlipidemia, unspecified; Z95.4 Presence of other heart-valve replacement; Z96.652 Presence of left artificial knee joint; Z79.82 Long term (current) use of aspirin; Z79.84 Long term (current) use of oral hypoglycemic drugs; Z79.899 Other long term (current) drug therapy; Z88.5 Allergy status to narcotic agent

== ENCOUNTER → 2022-08-19 | Outpatient (REF) | payer MEDICARE, BC, OTHER ==
[~2022-08-19] MED LIST changes: +ACET-907 PO; +AMMO12LO TOP; +AMOX500T2 PO; +ATOR40TA75 PO; +DULO20CA27 PO; +FERR32TA PO; +FLEEENE12 PR; +FLOM0.4C39 PO; +FOLI1TAB11 PO; +GABA-283 PO; +LACT10SO3 PO; +LIDO76.52 TOP; +MILKSUS3 PO; +MIRA1POW3 PO; +PANT40TA29 PO; +RETA2000 INJ; +SENN8.6T28 PO; +SYNT25TA PO; +TRAM50TA2 PO; +VITA100093 PO
[2022-08-19 15:52] LABS: HEMATOCRIT 25.7 % (42.0-52.0); HEMOGLOBIN 8.6 g/dl (13.5-17.5); MEAN CORPUSCULAR HEMOGLOBIN 30.1 pg (27.0-33.0); MEAN CORPUSCULAR HGB CONC 33.5 g/dl (32.0-36.5); MEAN CORPUSCULAR VOLUME 89.9 fl (80.0-96.0); PLATELET COUNT, AUTOMATED 144 10^3/uL (150-450); RED BLOOD COUNT 2.86 10^6/uL (4.30-6.10); WHITE BLOOD COUNT 3.3 10^3/uL (4.0-10.0)
[2022-08-19 16:18] LABS: URIC ACID 8.1 MG/DL (3.7-9.2)
[2022-08-19 16:22] LABS: BILIRUBIN,TOTAL 0.4 MG/DL (0.3-1.2); CALCIUM LEVEL 9.6 MG/DL (8.3-10.6); CHOLESTEROL RISK RATIO 8.94 (<5); CREATININE FOR GFR 2.02 MG/DL (0.70-1.30); GLOMERULAR FILTRATION RATE 34.3 (>42); HDL CHOLESTEROL 8.5 MG/DL (>40); LDL CHOLESTEROL 31.1 MG/DL (<100); NON-HDL-C 67.5 MG/DL; POTASSIUM SERUM 4.3 MMOL/L (3.5-5.1); PTH INTACT 10.7 PG/ML (18.5-88.0); TOTAL PROTEIN 6.1 G/DL (5.7-8.2)
[2022-08-19 16:23] LABS: FERRITIN 350.1 NG/ML (10.5-307.3); THYROID STIMULATING HORMONE 2.303 uIU/ML (0.55-4.78)
== END ==
LOC: SKLAB3 14:42
PROVIDERS: ATTEND Internal Medicine
DX: E78.5 Hyperlipidemia, unspecified (principal); E11.22 Type 2 diabetes mellitus with diabetic chronic kidney disease; N18.9 Chronic kidney disease, unspecified

== ENCOUNTER 2022-08-23 17:00 | Inpatient (IN) | payer BC, MEDICARE, OTHER ==
[~2022-08-23] VITALS: Ht 175.3 cm; Wt 94.4 kg
[~2022-08-23 17:00] MED LIST changes: -ACET-907 PO; -AMMO12LO TOP; -AMOX500T2 PO; -ATOR40TA75 PO; -DULO20CA27 PO; -FERR32TA PO; -FLEEENE12 PR; -FLOM0.4C39 PO; -FOLI1TAB11 PO; -GABA-283 PO; -LACT10SO3 PO; -LIDO76.52 TOP; -MILKSUS3 PO; -MIRA1POW3 PO; -PANT40TA29 PO; -RETA2000 INJ; -SENN8.6T28 PO; -SYNT25TA PO; -TRAM50TA2 PO; -VITA100093 PO
[2022-08-23 18:10] LABS: HEMATOCRIT 28.8 % (42.0-52.0); HEMOGLOBIN 9.4 g/dl (13.5-17.5); MEAN CORPUSCULAR HEMOGLOBIN 29.5 pg (27.0-33.0); MEAN CORPUSCULAR HGB CONC 32.6 g/dl (32.0-36.5); MEAN CORPUSCULAR VOLUME 90.3 fl (80.0-96.0); PLATELET COUNT, AUTOMATED 213 10^3/uL (150-450); RED BLOOD COUNT 3.19 10^6/uL (4.30-6.10); WHITE BLOOD COUNT 5.3 10^3/uL (4.0-10.0)
[2022-08-23 18:45] LABS: BILIRUBIN,TOTAL 0.7 MG/DL (0.3-1.2); CALCIUM LEVEL 9.4 MG/DL (8.3-10.6); CREATININE FOR GFR 2.39 MG/DL (0.70-1.30); GLOMERULAR FILTRATION RATE 28.2 (>42); POTASSIUM SERUM 5.2 MMOL/L (3.5-5.1); TOTAL PROTEIN 6.3 G/DL (5.7-8.2)
[2022-08-23 19:21] LABS: BASO % 0.5 % (0.0-1.0); EOS # 0.4 10^3/uL (0.0-0.5); EOS % 6.6 % (0.0-3.0); LYMPH # 1.5 10^3/uL (1.5-5.0); LYMPH % 24.6 % (24.0-44.0); MONO # 0.6 10^3/uL (0.0-0.8); MONO % 9.8 % (2.0-8.0); NEUTROPHILS # 3.6 10^3/uL (1.5-8.5); NEUTROPHILS % 58.2 % (36.0-66.0)
[2022-08-24] MEDS ORDERED: ACETAMINOPHEN TAB 650MG DOSE (2X325MG) PO PRN (01:35)
[2022-08-24] MEDS ORDERED: GLUCOSE 4GM CHEW TABLET PO PRN (01:35)
[2022-08-24] MEDS ORDERED: GLUCAGON INJ 1MG VIAL SC PRN (01:35)
[2022-08-24] MEDS ORDERED: DEXTROSE 50% 50ML SYRINGE IV PRN (01:35)
[2022-08-24] MEDS ORDERED: MOM 30ML SUSPENSION UDC PO PRN (01:35)
[2022-08-24] MEDS ORDERED: PANT40TA29 PO (02:07)
[2022-08-24] MEDS ORDERED: MILKSUS3 PO (02:07)
[2022-08-24] MEDS ORDERED: AMMO12LO TOP (02:07)
[2022-08-24] MEDS ORDERED: RETA2000 INJ (02:07)
[2022-08-24] MEDS ORDERED: DULO20CA27 PO (02:07)
[2022-08-24] MEDS ORDERED: MIRA1POW3 PO (02:07)
[2022-08-24] MEDS ORDERED: ACET-907 PO (02:07)
[2022-08-24] MEDS ORDERED: LIDO76.52 TOP (02:07)
[2022-08-24] MEDS ORDERED: FLEEENE12 PR (02:07)
[2022-08-24] MEDS ORDERED: AMOX500T2 PO (02:07)
[2022-08-24] MEDS ORDERED: FERR32TA PO (02:07)
[2022-08-24] MEDS ORDERED: ATOR40TA75 PO (02:07)
[2022-08-24] MEDS ORDERED: FLOM0.4C39 PO (02:07)
[2022-08-24] MEDS ORDERED: TRAM50TA2 PO (02:07)
[2022-08-24] MEDS ORDERED: SYNT25TA PO (02:07)
[2022-08-24] MEDS ORDERED: FOLI1TAB11 PO (02:07)
[2022-08-24] MEDS ORDERED: SENN8.6T28 PO (02:07)
[2022-08-24] MEDS ORDERED: VITA100093 PO (02:07)
[2022-08-24] MEDS ORDERED: GABA-283 PO (02:07)
[2022-08-24] MEDS ORDERED: LACT10SO3 PO (02:07)
[2022-08-24] MEDS ORDERED: HOME MED LIST COMPLETE! XX SCH (02:10)
[2022-08-24] MEDS ORDERED: NS 1,000 ML IV SCH (03:25)
[2022-08-24 05:34] LABS: BASO % 0.7 % (0.0-1.0); EOS # 0.3 10^3/uL (0.0-0.5); EOS % 5.9 % (0.0-3.0); HEMOGLOBIN 9.7 g/dl (13.5-17.5); LYMPH # 1.3 10^3/uL (1.5-5.0); LYMPH % 23.7 % (24.0-44.0); MEAN CORPUSCULAR HEMOGLOBIN 29.7 pg (27.0-33.0); MEAN CORPUSCULAR HGB CONC 33.4 g/dl (32.0-36.5); MEAN CORPUSCULAR VOLUME 88.7 fl (80.0-96.0); MONO # 0.5 10^3/uL (0.0-0.8); MONO % 9.7 % (2.0-8.0); NEUTROPHILS # 3.3 10^3/uL (1.5-8.5); NEUTROPHILS % 59.6 % (36.0-66.0); PLATELET COUNT, AUTOMATED 228 10^3/uL (150-450); RED BLOOD COUNT 3.27 10^6/uL (4.30-6.10); WHITE BLOOD COUNT 5.5 10^3/uL (4.0-10.0)
[2022-08-24 05:56] LABS: ALBUMIN 3.1 G/DL (3.2-5.2); BILIRUBIN,TOTAL 0.7 MG/DL (0.3-1.2); CALCIUM LEVEL 8.8 MG/DL (8.3-10.6); CREATININE FOR GFR 2.36 MG/DL (0.70-1.30); GLOMERULAR FILTRATION RATE 28.6 (>42); POTASSIUM SERUM 5.2 MMOL/L (3.5-5.1); TOTAL PROTEIN 6.4 G/DL (5.7-8.2)
[2022-08-24] MEDS: LEVOTHYROXINE 25MCG TABLET (0.025MG) PO SCH (06:09)
[2022-08-24] MEDS: HEPARIN SOD (PORCINE) 5000UNITS/ML 1ML VIAL/SYRINGE SC SCH ×3 (06:11→22:00)
[2022-08-24 08:12] LABS: THYROID STIMULATING HORMONE 3.326 uIU/ML (0.55-4.78)
[2022-08-24] MEDS: SENOKOT S TAB PO SCH ×2 (08:23→21:00)
[2022-08-24] MEDS: INSULIN LISPRO (NovoLOG) PER UNIT SC SCH ×4 (08:23→21:00)
[2022-08-24] MEDS: TAMSULOSIN 0.4 MG CAP PO SCH (08:23)
[2022-08-24] MEDS: MIRALAX *UNIT DOSE* 17GM PACKET PO SCH (08:23)
[2022-08-24] MEDS: PANTOPRAZOLE 40MG TAB (PROTONIX) PO SCH (08:23)
[2022-08-24] MEDS: DULoxetine 20MG CAP (CYMBALTA) PO SCH ×2 (08:23→21:00)
[2022-08-24] MEDS: ASPIRIN 81MG ENTERIC TABLET PO SCH (08:23)
[2022-08-24] MEDS: ACETAMINOPHEN TAB 650MG DOSE (2X325MG) PO PRN ×2 (08:24→14:30)
[2022-08-24] MEDS ORDERED: GABAPENTIN 100 MG CAP PO SCH ×2 (09:00→16:00)
[2022-08-24] MEDS ORDERED: GABAPENTIN 400MG CAP PO SCH (09:00)
[2022-08-24] MEDS ORDERED: PATIROMER SORBITEX CALCIUM 8.4 GM POWDER PACKET (VELTASSA) PO ONE (10:05)
[2022-08-24] MEDS: LIDOCAINE 5% (LIDODERM) PATCH TD SCH (11:29)
[2022-08-24] MEDS: AUGMENTIN 500MG TAB PO SCH ×2 (11:29→21:00)
[2022-08-24 11:45] LABS: TOTAL 25(OH) VITAMIN D 47.6 NG/ML (20.0-100.0)
[2022-08-24 14:15] VITALS: BP 152/74; TEMP 97.9; O2SAT 97
[2022-08-24] MEDS: METOPROLOL TART 25 MG TABLET PO SCH (14:31)
[2022-08-24] MEDS ORDERED: **hydrALAZINE HCL** 25 MG TAB PO PRN (16:20)
[2022-08-24] MEDS: GABAPENTIN 300 MG CAP PO SCH ×2 (17:48→21:00)
[2022-08-24 20:00] VITALS: BP 144/73; TEMP 99.3; O2SAT 91
[2022-08-24] MEDS: ATORVASTATIN 20 MG TAB PO SCH (21:00)
[2022-08-25] VITALS (8 sets, daily range): BP systolic 100–150; BP diastolic 50–72; TEMP 98.2–101; O2SAT 93–96
[2022-08-25] MEDS: AUGMENTIN 500MG TAB PO SCH (01:57)
[2022-08-25] MEDS: ACETAMINOPHEN TAB 650MG DOSE (2X325MG) PO PRN ×2 (02:02→20:25)
[2022-08-25 03:43] LABS: HEMATOCRIT 26.7 % (42.0-52.0); HEMOGLOBIN 9.1 g/dl (13.5-17.5); MEAN CORPUSCULAR HEMOGLOBIN 29.6 pg (27.0-33.0); MEAN CORPUSCULAR HGB CONC 34.1 g/dl (32.0-36.5); PLATELET COUNT, AUTOMATED 221 10^3/uL (150-450); RED BLOOD COUNT 3.07 10^6/uL (4.30-6.10); WHITE BLOOD COUNT 4.4 10^3/uL (4.0-10.0)
[2022-08-25] MEDS: NS 1,000 ML IV SCH ×2 (03:50→15:34)
[2022-08-25 04:09] LABS: CALCIUM LEVEL 8.6 MG/DL (8.3-10.6); CREATININE FOR GFR 2.28 MG/DL (0.70-1.30); GLOMERULAR FILTRATION RATE 29.8 (>42); POTASSIUM SERUM 4.9 MMOL/L (3.5-5.1)
[2022-08-25] MEDS: LEVOTHYROXINE 25MCG TABLET (0.025MG) PO SCH (06:00)
[2022-08-25 06:08] LABS: APPEARANCE, URINE HAZY (CLEAR); BACTERIA, URINE AUTO 1+ (NEGATIVE); BILIRUBIN, URINE AUTO NEGATIVE (NEGATIVE); BLOOD, URINE BLOOD 2+ (NEGATIVE); COLOR, URINE YELLOW (YELLOW); GLUCOSE, URINE (UA) AUTO NEGATIVE (NEGATIVE); KETONE, URINE AUTO NEGATIVE (NEGATIVE); LEUKOCYTE ESTERASE, URINE AUTO NEGATIVE (NEGATIVE); NITRITE, URINE AUTO NEGATIVE (NEGATIVE); PROTEIN, URINE AUTO 1+ mg/dL (NEGATIVE); RBC, URINE AUTO 11 /HPF (0-3); SPECIFIC GRAVITY URINE AUTO 1.012 (1.002-1.035); SQUAMOUS EPITHELIAL CELL UR AU 0 /HPF (0-6); UROBILINOGEN, URINE AUTO 0.2 mg/dL (0.0-2.0); WBC, URINE AUTO 0 /HPF (0-3)
[2022-08-25] MEDS: HEPARIN SOD (PORCINE) 5000UNITS/ML 1ML VIAL/SYRINGE SC SCH ×3 (06:28→22:55)
[2022-08-25] MEDS: INSULIN LISPRO (NovoLOG) PER UNIT SC SCH ×4 (08:36→20:52)
[2022-08-25] MEDS: DULoxetine 20MG CAP (CYMBALTA) PO SCH ×2 (08:50→20:22)
[2022-08-25] MEDS: LIDOCAINE 5% (LIDODERM) PATCH TD SCH (08:50)
[2022-08-25] MEDS: TAMSULOSIN 0.4 MG CAP PO SCH (08:50)
[2022-08-25] MEDS: ASPIRIN 81MG ENTERIC TABLET PO SCH (08:50)
[2022-08-25] MEDS: SENOKOT S TAB PO SCH (08:50)
[2022-08-25] MEDS: AZITHROMYCIN 250MG TABLET PO SCH (08:51)
[2022-08-25] MEDS: PANTOPRAZOLE 40MG TAB (PROTONIX) PO SCH (08:51)
[2022-08-25] MEDS: GABAPENTIN 300 MG CAP PO SCH ×3 (08:51→20:24)
[2022-08-25] MEDS: METOPROLOL TART 25 MG TABLET PO SCH (08:54)
[2022-08-25] MEDS: MIRALAX *UNIT DOSE* 17GM PACKET PO SCH (08:54)
[2022-08-25] MEDS ORDERED: AZITHROMYCIN INJ 500 MG, VIAL MATE ADAPTER 1 EACH in NS 250 ML IV SCH (09:00)
[2022-08-25] MEDS: CEFEPIME HCL 2 GM in D5W MINI-BAG PLUS 50 ML IV SCH ×2 (09:07→22:52)
[2022-08-25] MEDS ORDERED: VANCOMYCIN HCL 750 MG, VIAL MATE ADAPTER 1 EACH in D5W 250 ML IV ONE ×2 (11:00→12:00)
[2022-08-25] MEDS: ATORVASTATIN 20 MG TAB PO SCH (20:25)
[2022-08-26 05:12] VITALS: BP 120/60; TEMP 98.9; O2SAT 97
[2022-08-26] MEDS: LEVOTHYROXINE 25MCG TABLET (0.025MG) PO SCH (05:27)
[2022-08-26] MEDS: HEPARIN SOD (PORCINE) 5000UNITS/ML 1ML VIAL/SYRINGE SC SCH ×3 (05:27→22:00)
[2022-08-26 06:01] LABS: HEMATOCRIT 25.7 % (42.0-52.0); HEMOGLOBIN 8.5 g/dl (13.5-17.5); MEAN CORPUSCULAR HEMOGLOBIN 29.4 pg (27.0-33.0); MEAN CORPUSCULAR HGB CONC 33.1 g/dl (32.0-36.5); MEAN CORPUSCULAR VOLUME 88.9 fl (80.0-96.0); PLATELET COUNT, AUTOMATED 225 10^3/uL (150-450); RED BLOOD COUNT 2.89 10^6/uL (4.30-6.10); WHITE BLOOD COUNT 4.5 10^3/uL (4.0-10.0)
[2022-08-26 06:19] LABS: BLOOD UREA NITROGEN 45 MG/DL (9-23); CALCIUM LEVEL 8.2 MG/DL (8.3-10.6); CARBON DIOXIDE LEVEL 20 MMOL/L (20-31); CHLORIDE LEVEL 107 MMOL/L (98-107); CREATININE FOR GFR 2.34 MG/DL (0.70-1.30); GLOMERULAR FILTRATION RATE 28.9 (>42); GLUCOSE, FASTING 105 MG/DL (74-106); POTASSIUM SERUM 4.4 MMOL/L (3.5-5.1); SODIUM LEVEL 136 MMOL/L (136-145)
[2022-08-26] MEDS: INSULIN LISPRO (NovoLOG) PER UNIT SC SCH ×4 (07:30→21:00)
[2022-08-26] MEDS ORDERED: VANCOMYCIN HCL 750 MG, VIAL MATE ADAPTER 1 EACH in D5W 250 ML IV SCH (08:00)
[2022-08-26] MEDS: guaiFENesin 200 MG TAB PO SCH ×2 (08:29→19:46)
[2022-08-26] MEDS: PANTOPRAZOLE 40MG TAB (PROTONIX) PO SCH (08:29)
[2022-08-26] MEDS: AZITHROMYCIN 250MG TABLET PO SCH (08:29)
[2022-08-26] MEDS: GABAPENTIN 300 MG CAP PO SCH ×3 (08:29→19:46)
[2022-08-26] MEDS: DULoxetine 20MG CAP (CYMBALTA) PO SCH ×2 (08:29→19:46)
[2022-08-26] MEDS: LIDOCAINE 5% (LIDODERM) PATCH TD SCH (08:29)
[2022-08-26] MEDS: ASPIRIN 81MG ENTERIC TABLET PO SCH (08:29)
[2022-08-26] MEDS: TAMSULOSIN 0.4 MG CAP PO SCH (08:29)
[2022-08-26] MEDS: AMPICILLIN SOD/SULBACTAM SOD 3 GM in D5W MINI-BAG PLUS 100 ML IV SCH ×2 (08:30→19:47)
[2022-08-26] MEDS: METOPROLOL TART 25 MG TABLET PO SCH (08:32)
[2022-08-26] MEDS: IPRATROPIUM 0.5MG/ALBUTEROL 2.5MG INH SOL UD 3ML (DUONEB) NEB SCH ×3 (09:22→19:55)
[2022-08-26 10:58] LABS: IRON (FE) 43 UG/DL (65-175); PERCENT SATURATION 21.4 % (19.7-50.0); TOTAL IRON BINDING CAPACITY 201 UG/DL (250-425)
[2022-08-26 11:00] LABS: FOLATE > 24.0 NG/ML (>5.4)
[2022-08-26 11:01] LABS: FERRITIN 255.6 NG/ML (10.5-307.3)
[2022-08-26 11:31] LABS: VITAMIN B12 LEVEL 474 PG/ML (211-911)
[2022-08-26 14:00] VITALS: BP 130/61; TEMP 99; O2SAT 95
[2022-08-26 17:07] LABS: MYCOPLASMA PNEUMONIAE IgG <100 U/mL (0-99); MYCOPLASMA PNEUMONIAE IgM <770 U/mL (0-769)
[2022-08-26] MEDS: ACETAMINOPHEN TAB 650MG DOSE (2X325MG) PO PRN (17:58)
[2022-08-26] MEDS: ATORVASTATIN 20 MG TAB PO SCH (19:46)
[2022-08-26] MEDS: ANALGESIC BALM CRM 3OZ TOP SCH (19:47)
[2022-08-26 20:00] VITALS: TEMP 99; O2SAT 93
[2022-08-27] VITALS (8 sets, daily range): BP systolic 107–142; BP diastolic 52–67; TEMP 98.8–99.7; O2SAT 93–95
[2022-08-27] MEDS: IPRATROPIUM 0.5MG/ALBUTEROL 2.5MG INH SOL UD 3ML (DUONEB) NEB SCH ×3 (01:20→15:43)
[2022-08-27 05:00] LABS: HEMATOCRIT 25.4 % (42.0-52.0); HEMOGLOBIN 8.4 g/dl (13.5-17.5); MEAN CORPUSCULAR HEMOGLOBIN 29.3 pg (27.0-33.0); MEAN CORPUSCULAR HGB CONC 33.1 g/dl (32.0-36.5); MEAN CORPUSCULAR VOLUME 88.5 fl (80.0-96.0); PLATELET COUNT, AUTOMATED 234 10^3/uL (150-450); RED BLOOD COUNT 2.87 10^6/uL (4.30-6.10); WHITE BLOOD COUNT 5.7 10^3/uL (4.0-10.0)
[2022-08-27 05:17] LABS: CALCIUM LEVEL 8.1 MG/DL (8.3-10.6); CREATININE FOR GFR 2.42 MG/DL (0.70-1.30); GLOMERULAR FILTRATION RATE 27.8 (>42); POTASSIUM SERUM 4.3 MMOL/L (3.5-5.1)
[2022-08-27] MEDS: ACETAMINOPHEN TAB 650MG DOSE (2X325MG) PO PRN (06:01)
[2022-08-27] MEDS: LEVOTHYROXINE 25MCG TABLET (0.025MG) PO SCH (06:01)
[2022-08-27] MEDS: HEPARIN SOD (PORCINE) 5000UNITS/ML 1ML VIAL/SYRINGE SC SCH ×3 (06:01→20:36)
[2022-08-27] MEDS: INSULIN LISPRO (NovoLOG) PER UNIT SC SCH ×4 (07:30→21:00)
[2022-08-27] MEDS: ASPIRIN 81MG ENTERIC TABLET PO SCH (08:27)
[2022-08-27] MEDS: GABAPENTIN 300 MG CAP PO SCH ×3 (08:27→20:35)
[2022-08-27] MEDS: PANTOPRAZOLE 40MG TAB (PROTONIX) PO SCH (08:28)
[2022-08-27] MEDS: guaiFENesin 200 MG TAB PO SCH ×2 (08:28→20:35)
[2022-08-27] MEDS: TAMSULOSIN 0.4 MG CAP PO SCH (08:28)
[2022-08-27] MEDS: METOPROLOL TART 25 MG TABLET PO SCH (08:28)
[2022-08-27] MEDS: DULoxetine 20MG CAP (CYMBALTA) PO SCH ×2 (08:28→20:35)
[2022-08-27] MEDS: AZITHROMYCIN 250MG TABLET PO SCH (08:28)
[2022-08-27] MEDS: LIDOCAINE 5% (LIDODERM) PATCH TD SCH (08:29)
[2022-08-27] MEDS: AMPICILLIN SOD/SULBACTAM SOD 3 GM in D5W MINI-BAG PLUS 100 ML IV SCH ×2 (08:30→20:35)
[2022-08-27] MEDS: FERROUS SULFATE 325MG TAB PO SCH ×2 (11:05→20:35)
[2022-08-27] MEDS: TORSEMIDE 10 MG TABLET PO SCH (11:05)
[2022-08-27 18:13] LABS: HEMATOCRIT 29.5 % (42.0-52.0); HEMOGLOBIN 9.6 g/dl (13.5-17.5); MEAN CORPUSCULAR HEMOGLOBIN 29.3 pg (27.0-33.0); MEAN CORPUSCULAR HGB CONC 32.5 g/dl (32.0-36.5); MEAN CORPUSCULAR VOLUME 89.9 fl (80.0-96.0); PLATELET COUNT, AUTOMATED 234 10^3/uL (150-450); RED BLOOD COUNT 3.28 10^6/uL (4.30-6.10); WHITE BLOOD COUNT 5.6 10^3/uL (4.0-10.0)
[2022-08-27] MEDS: IPRATROPIUM 0.5MG/ALBUTEROL 2.5MG INH SOL UD 3ML (DUONEB) NEB PRN (19:01)
[2022-08-27] MEDS: ATORVASTATIN 20 MG TAB PO SCH (20:35)
[2022-08-27] MEDS: ANALGESIC BALM CRM 3OZ TOP SCH (20:36)
[2022-08-28 00:22] VITALS: O2SAT 92
[2022-08-28 05:31] VITALS: BP 138/68; TEMP 99; O2SAT 92
[2022-08-28] MEDS: HEPARIN SOD (PORCINE) 5000UNITS/ML 1ML VIAL/SYRINGE SC SCH ×3 (05:49→21:14)
[2022-08-28] MEDS: LEVOTHYROXINE 25MCG TABLET (0.025MG) PO SCH (05:49)
[2022-08-28 06:39] LABS: HEMATOCRIT 27.6 % (42.0-52.0); HEMOGLOBIN 9.2 g/dl (13.5-17.5); MEAN CORPUSCULAR HGB CONC 33.3 g/dl (32.0-36.5); MEAN CORPUSCULAR VOLUME 89.9 fl (80.0-96.0); PLATELET COUNT, AUTOMATED 230 10^3/uL (150-450); RED BLOOD COUNT 3.07 10^6/uL (4.30-6.10)
[2022-08-28 07:14] LABS: CALCIUM LEVEL 8.1 MG/DL (8.3-10.6); CREATININE FOR GFR 2.61 MG/DL (0.70-1.30); GLOMERULAR FILTRATION RATE 25.5 (>42); MAGNESIUM LEVEL 1.9 MG/DL (1.8-2.4); POTASSIUM SERUM 4.4 MMOL/L (3.5-5.1)
[2022-08-28] MEDS: PANTOPRAZOLE 40MG TAB (PROTONIX) PO SCH (08:09)
[2022-08-28] MEDS: FERROUS SULFATE 325MG TAB PO SCH (08:09)
[2022-08-28] MEDS: TORSEMIDE 10 MG TABLET PO SCH (08:09)
[2022-08-28] MEDS: INSULIN LISPRO (NovoLOG) PER UNIT SC SCH ×4 (08:09→16:48)
[2022-08-28] MEDS: ASPIRIN 81MG ENTERIC TABLET PO SCH (08:09)
[2022-08-28] MEDS: GABAPENTIN 300 MG CAP PO SCH ×3 (08:10→21:12)
[2022-08-28] MEDS: METOPROLOL TART 25 MG TABLET PO SCH (08:10)
[2022-08-28] MEDS: TAMSULOSIN 0.4 MG CAP PO SCH (08:10)
[2022-08-28] MEDS: LIDOCAINE 5% (LIDODERM) PATCH TD SCH (08:11)
[2022-08-28] MEDS: AMPICILLIN SOD/SULBACTAM SOD 3 GM in D5W MINI-BAG PLUS 100 ML IV SCH (08:11)
[2022-08-28] MEDS: DULoxetine 20MG CAP (CYMBALTA) PO SCH ×2 (08:14→21:12)
[2022-08-28] MEDS: guaiFENesin 200 MG TAB PO SCH ×2 (08:14→21:12)
[2022-08-28] MEDS ORDERED: DARBEPOETIN 100MCG/0.5ML *NON-DIALYSIS* SYRINGE SC SCH (09:00)
[2022-08-28] MEDS ORDERED: FERRIC CARBOXYMALTOSE INJ 750 MG, VIAL MATE ADAPTER 1 EACH in NS 250 ML IV ONE (12:00)
[2022-08-28 14:00] VITALS: BP 141/70; TEMP 98.8; O2SAT 94
[2022-08-28] MEDS: ACETAMINOPHEN TAB 650MG DOSE (2X325MG) PO PRN (16:13)
[2022-08-28 20:39] VITALS: BP 117/53; TEMP 98.6; O2SAT 90
[2022-08-28] MEDS: AUGMENTIN 500MG TAB PO SCH (21:12)
[2022-08-28] MEDS: ATORVASTATIN 20 MG TAB PO SCH (21:12)
[2022-08-28] MEDS: ANALGESIC BALM CRM 3OZ TOP SCH (21:14)
[2022-08-29 01:57] VITALS: O2SAT 93
[2022-08-29] MEDS: ACETAMINOPHEN TAB 650MG DOSE (2X325MG) PO PRN ×2 (03:06→21:27)
[2022-08-29] MEDS: HEPARIN SOD (PORCINE) 5000UNITS/ML 1ML VIAL/SYRINGE SC SCH ×3 (05:20→21:26)
[2022-08-29] MEDS: LEVOTHYROXINE 25MCG TABLET (0.025MG) PO SCH (05:20)
[2022-08-29 05:57] LABS: HEMATOCRIT 28.5 % (42.0-52.0); HEMOGLOBIN 9.2 g/dl (13.5-17.5); MEAN CORPUSCULAR HEMOGLOBIN 29.5 pg (27.0-33.0); MEAN CORPUSCULAR HGB CONC 32.3 g/dl (32.0-36.5); MEAN CORPUSCULAR VOLUME 91.3 fl (80.0-96.0); PLATELET COUNT, AUTOMATED 219 10^3/uL (150-450); RED BLOOD COUNT 3.12 10^6/uL (4.30-6.10); WHITE BLOOD COUNT 6.5 10^3/uL (4.0-10.0)
[2022-08-29 06:00] VITALS: BP 112/52; TEMP 99; O2SAT 91
[2022-08-29 06:27] LABS: CALCIUM LEVEL 8.1 MG/DL (8.3-10.6); CREATININE FOR GFR 2.69 MG/DL (0.70-1.30); GLOMERULAR FILTRATION RATE 24.6 (>42); MAGNESIUM LEVEL 1.9 MG/DL (1.8-2.4); POTASSIUM SERUM 4.5 MMOL/L (3.5-5.1)
[2022-08-29] MEDS: INSULIN LISPRO (NovoLOG) PER UNIT SC SCH ×4 (07:30→21:00)
[2022-08-29] MEDS: METOPROLOL TART 25 MG TABLET PO SCH (09:00)
[2022-08-29] MEDS: DULoxetine 20MG CAP (CYMBALTA) PO SCH ×2 (09:08→21:24)
[2022-08-29] MEDS: AUGMENTIN 500MG TAB PO SCH ×2 (09:08→21:25)
[2022-08-29] MEDS: PANTOPRAZOLE 40MG TAB (PROTONIX) PO SCH (09:08)
[2022-08-29] MEDS: TAMSULOSIN 0.4 MG CAP PO SCH (09:08)
[2022-08-29] MEDS: ASPIRIN 81MG ENTERIC TABLET PO SCH (09:08)
[2022-08-29] MEDS: GABAPENTIN 300 MG CAP PO SCH ×3 (09:08→21:25)
[2022-08-29] MEDS: LIDOCAINE 5% (LIDODERM) PATCH TD SCH (09:09)
[2022-08-29] MEDS: guaiFENesin 200 MG TAB PO SCH ×2 (09:09→21:24)
[2022-08-29 14:00] VITALS: BP 141/65; TEMP 98.6; O2SAT 94
[2022-08-29 21:00] VITALS: BP 138/66; TEMP 99.3; O2SAT 92
[2022-08-29] MEDS: ANALGESIC BALM CRM 3OZ TOP SCH (21:00)
[2022-08-29] MEDS: ATORVASTATIN 20 MG TAB PO SCH (21:25)
[2022-08-29 21:30] VITALS: O2SAT 94
[2022-08-30 05:40] VITALS: BP 153/75; TEMP 98.8; O2SAT 93
[2022-08-30] MEDS: LEVOTHYROXINE 25MCG TABLET (0.025MG) PO SCH (05:40)
[2022-08-30] MEDS: ACETAMINOPHEN TAB 650MG DOSE (2X325MG) PO PRN ×2 (05:42→11:04)
[2022-08-30] MEDS: HEPARIN SOD (PORCINE) 5000UNITS/ML 1ML VIAL/SYRINGE SC SCH ×2 (05:44→13:58)
[2022-08-30 06:01] LABS: HEMATOCRIT 28.9 % (42.0-52.0); HEMOGLOBIN 9.5 g/dl (13.5-17.5); MEAN CORPUSCULAR HEMOGLOBIN 29.5 pg (27.0-33.0); MEAN CORPUSCULAR HGB CONC 32.9 g/dl (32.0-36.5); MEAN CORPUSCULAR VOLUME 89.8 fl (80.0-96.0); PLATELET COUNT, AUTOMATED 230 10^3/uL (150-450); RED BLOOD COUNT 3.22 10^6/uL (4.30-6.10); WHITE BLOOD COUNT 6.4 10^3/uL (4.0-10.0)
[2022-08-30 06:23] LABS: CALCIUM LEVEL 8.4 MG/DL (8.3-10.6); CREATININE FOR GFR 2.52 MG/DL (0.70-1.30); GLOMERULAR FILTRATION RATE 26.5 (>42); MAGNESIUM LEVEL 1.8 MG/DL (1.8-2.4); POTASSIUM SERUM 4.4 MMOL/L (3.5-5.1)
[2022-08-30] MEDS: INSULIN LISPRO (NovoLOG) PER UNIT SC SCH ×2 (07:30→13:58)
[2022-08-30 09:26] VITALS: BP 136/64
[2022-08-30] MEDS: ASPIRIN 81MG ENTERIC TABLET PO SCH (11:02)
[2022-08-30] MEDS: LIDOCAINE 5% (LIDODERM) PATCH TD SCH (11:02)
[2022-08-30] MEDS: DULoxetine 20MG CAP (CYMBALTA) PO SCH (11:02)
[2022-08-30] MEDS: TAMSULOSIN 0.4 MG CAP PO SCH (11:02)
[2022-08-30] MEDS: guaiFENesin 200 MG TAB PO SCH (11:05)
[2022-08-30 11:06] VITALS: BP 136/64
[2022-08-30] MEDS: METOPROLOL TART 25 MG TABLET PO SCH (11:06)
[2022-08-30] MEDS: GABAPENTIN 300 MG CAP PO SCH (11:06)
[2022-08-30] MEDS: PANTOPRAZOLE 40MG TAB (PROTONIX) PO SCH (11:06)
[2022-08-30] MEDS: AUGMENTIN 500MG TAB PO SCH (11:06)
[2022-08-30] MEDS ORDERED: TOPR25TA PO (11:10)
[2022-08-30] MEDS ORDERED: GABA-282 PO (11:10)
[2022-08-30] MEDS ORDERED: TRAM50TA2 PO ×2 (11:10→11:11)
[2022-08-30] MEDS ORDERED: AMOX500T2 PO (11:10)
[2022-08-30] MEDS: IPRATROPIUM 0.5MG/ALBUTEROL 2.5MG INH SOL UD 3ML (DUONEB) NEB PRN (12:41)
[2022-09-02 08:12] LABS: CHLAMYDIA PNEUMONIAE IgM <1:10 (< 1:10); CHLAMYDIA PSITTACI IgM <1:10 (< 1:10); CHLAMYDIA TRACHOMATIS IgM <1:10 (< 1:10)
== END 2022-08-30 14:23 | DRG 70 ==
LOC: M ED 17:00 → EDBD 17:00 → M ED INP 17:01 → ENRESERV 08-24 13:38 → M MSPAV 08-24 14:10 → OBSVTOIN 08-25 18:10
PROVIDERS: ADMIT Internal Medicine; ATTEND Internal Medicine
PROC: 30233N1 Transfusion of Nonautologous Red Blood Cells into Peripheral Vein, Percutaneous Approach (ICD-10-PCS; principal; 2022-08-27)
DX: G93.41 Metabolic encephalopathy (principal); J18.9 Pneumonia, unspecified organism; N17.9 Acute kidney failure, unspecified; I16.9 Hypertensive crisis, unspecified; G91.2 (Idiopathic) normal pressure hydrocephalus; M21.379 Foot drop, unspecified foot; Z95.5 Presence of coronary angioplasty implant and graft; R33.9 Retention of urine, unspecified; I25.10 Atherosclerotic heart disease of native coronary artery without angina pectoris; Z86.73 Personal history of transient ischemic attack (TIA), and cerebral infarction without residual deficits; I73.9 Peripheral vascular disease, unspecified; E78.5 Hyperlipidemia, unspecified; D50.9 Iron deficiency anemia, unspecified; E11.51 Type 2 diabetes mellitus with diabetic peripheral angiopathy without gangrene; E11.42 Type 2 diabetes mellitus with diabetic polyneuropathy; E11.22 Type 2 diabetes mellitus with diabetic chronic kidney disease; N18.30 Chronic kidney disease, stage 3 unspecified; I12.9 Hypertensive chronic kidney disease with stage 1 through stage 4 chronic kidney disease, or unspecified chronic kidney disease; N52.9 Male erectile dysfunction, unspecified; Z96.652 Presence of left artificial knee joint; Z98.41 Cataract extraction status, right eye; Z98.42 Cataract extraction status, left eye; Z87.891 Personal history of nicotine dependence; G47.33 Obstructive sleep apnea (adult) (pediatric); K59.00 Constipation, unspecified; Z79.2 Long term (current) use of antibiotics; Z79.890 Hormone replacement therapy; Z79.899 Other long term (current) drug therapy; Z88.5 Allergy status to narcotic agent

== ENCOUNTER → 2022-09-02 | Outpatient (REF) ==
[~2022-09-02] MED LIST changes: +ACET-907 PO; +ACET650S3 PR; +AMMO12LO TOP; +AMOX500T2 PO; +ATOR40TA75 PO; +BACL5TAB2 PO; +DULC10SU2 PR; +DULO20CA27 PO; +FERR32TA PO; +FLEEENE12 PR; +FLOM0.4C39 PO; +FOLI1TAB11 PO; +GABA-283 PO; +IPRA0.00 INH; +LACT10SO3 PO; +LIDO76.52 TOP; +METO1TAB32 PO; +MILKSUS3 PO; +MIRA1POW3 PO; +PANT40TA29 PO; +RETA2000 INJ; +SENN8.6T28 PO; +SYNT25TA PO; +TOPR25TA PO; +TRAM50TA2 PO; +VITA100093 PO
[2022-09-02 11:39] LABS: HEMATOCRIT 31.8 % (42.0-52.0); HEMOGLOBIN 10.3 g/dl (13.5-17.5); MEAN CORPUSCULAR HEMOGLOBIN 29.8 pg (27.0-33.0); MEAN CORPUSCULAR HGB CONC 32.4 g/dl (32.0-36.5); MEAN CORPUSCULAR VOLUME 91.9 fl (80.0-96.0); PLATELET COUNT, AUTOMATED 231 10^3/uL (150-450); RED BLOOD COUNT 3.46 10^6/uL (4.30-6.10); WHITE BLOOD COUNT 7.5 10^3/uL (4.0-10.0)
== END ==
LOC: SKLAB3 10:44
PROVIDERS: ATTEND Internal Medicine
DX: Z01.89 Encounter for other specified special examinations (principal)

== ENCOUNTER 2022-09-06 16:10 | Inpatient (IN) | payer OTHER ==
[~2022-09-06] VITALS: Ht 185.4 cm; Wt 82.0 kg
[~2022-09-06 16:10] MED LIST changes: -ACET650S3 PR; -BACL5TAB2 PO; -DULC10SU2 PR; -IPRA0.00 INH; -METO1TAB32 PO
[2022-09-06 19:11] LABS: BASO # 0.1 10^3/uL (0.0-0.2); BASO % 0.8 % (0.0-1.0); EOS # 1.2 10^3/uL (0.0-0.5); EOS % 14.5 % (0.0-3.0); HEMATOCRIT 34.9 % (42.0-52.0); HEMOGLOBIN 11.4 g/dl (13.5-17.5); LYMPH # 1.6 10^3/uL (1.5-5.0); LYMPH % 20.4 % (24.0-44.0); MEAN CORPUSCULAR HEMOGLOBIN 29.9 pg (27.0-33.0); MEAN CORPUSCULAR HGB CONC 32.7 g/dl (32.0-36.5); MEAN CORPUSCULAR VOLUME 91.6 fl (80.0-96.0); MONO # 0.6 10^3/uL (0.0-0.8); MONO % 7.1 % (2.0-8.0); NEUTROPHILS # 4.5 10^3/uL (1.5-8.5); NEUTROPHILS % 56.6 % (36.0-66.0); PLATELET COUNT, AUTOMATED 232 10^3/uL (150-450); RED BLOOD COUNT 3.81 10^6/uL (4.30-6.10)
[2022-09-06 19:29] LABS: CK-MB VALUE MASS 1.7 NG/ML (<3.6)
[2022-09-06 19:30] LABS: CPK CREATINE PHOSPHOKINASE 33 U/L (46-171); MB/CK RELATIVE INDEX 5.15 (< OR =4)
[2022-09-06 19:31] LABS: ALBUMIN 3.2 G/DL (3.2-5.2); ALKALINE PHOSPHATASE 81 U/L (46-116); ALT/SGPT < 9 U/L (7.0-40); AST/SGOT 20 U/L (<34); BILIRUBIN,DIRECT 0.3 MG/DL (<0.4); BILIRUBIN,TOTAL 0.7 MG/DL (0.3-1.2); BLOOD UREA NITROGEN 33 MG/DL (9-23); CALCIUM LEVEL 8.6 MG/DL (8.3-10.6); CARBON DIOXIDE LEVEL 22 MMOL/L (20-31); CHLORIDE LEVEL 111 MMOL/L (98-107); CREATININE FOR GFR 1.94 MG/DL (0.70-1.30); GLOMERULAR FILTRATION RATE 35.9 (>42); GLUCOSE, FASTING 107 MG/DL (74-106); POTASSIUM SERUM 4.7 MMOL/L (3.5-5.1); SODIUM LEVEL 143 MMOL/L (136-145); TOTAL PROTEIN 6.3 G/DL (5.7-8.2)
[2022-09-06 19:33] LABS: THYROID STIMULATING HORMONE 2.296 uIU/ML (0.55-4.78)
[2022-09-06 19:39] LABS: RSV AMPLIFICATION NEGATIVE (NEGATIVE)
[2022-09-06 21:28] LABS: AMPHETAMINES LEVEL URINE NEGATIVE (NEGATIVE); BARBITURATES URINE NEGATIVE (NEGATIVE); BENZODIAZEPINES URINE NEGATIVE (NEGATIVE); CANNABINOIDS URINE NEGATIVE (NEGATIVE); COCAINE METABOLITE URINE NEGATIVE (NEGATIVE); METHADONE URINE NEGATIVE (NEGATIVE); OPIATES URINE NEGATIVE (NEGATIVE); PHENCYCLIDINE URINE NEGATIVE (NEGATIVE)
[2022-09-06] MEDS ORDERED: cefTRIAXone SOD 1 GM in D5W MINI-BAG PLUS 50 ML IV ONE (21:55)
[2022-09-06] MEDS ORDERED: ACET650S3 PR (23:41)
[2022-09-06] MEDS ORDERED: METO1TAB32 PO (23:41)
[2022-09-06] MEDS ORDERED: GABA-282 PO (23:41)
[2022-09-06] MEDS ORDERED: DULC10SU2 PR (23:41)
[2022-09-06] MEDS ORDERED: IPRA0.00 INH (23:41)
[2022-09-06] MEDS ORDERED: BACL5TAB2 PO (23:41)
[2022-09-06] MEDS ORDERED: TRAM50TA2 PO (23:41)
[2022-09-06] MEDS ORDERED: HOME MED LIST COMPLETE! XX SCH (23:45)
[2022-09-06] MEDS ORDERED: GLUCAGON INJ 1MG VIAL SC PRN (23:50)
[2022-09-06] MEDS ORDERED: DEXTROSE 50% 50ML SYRINGE IV PRN (23:50)
[2022-09-06] MEDS ORDERED: D5W/0.9% SODIUM CHLORIDE 1,000 ML IV SCH (23:50)
[2022-09-06] MEDS ORDERED: IPRATROPIUM 0.5MG/ALBUTEROL 2.5MG INH SOL UD 3ML (DUONEB) INH PRN (23:50)
[2022-09-06] MEDS ORDERED: GLUCOSE 4GM CHEW TABLET PO PRN (23:50)
[2022-09-06] MEDS ORDERED: BISACODYL 10MG SUPP PR PRN (23:50)
[2022-09-07] VITALS (12 sets, daily range): BP systolic 154–182; BP diastolic 74–88; TEMP 97.8–99.2; O2SAT 94–97
[2022-09-07] MEDS: INSULIN LISPRO (NovoLOG) PER UNIT SC SCH ×5 (01:29→23:41)
[2022-09-07 06:05] LABS: HEMOGLOBIN 10.9 g/dl (13.5-17.5); MEAN CORPUSCULAR VOLUME 90.9 fl (80.0-96.0); PLATELET COUNT, AUTOMATED 216 10^3/uL (150-450); RED BLOOD COUNT 3.63 10^6/uL (4.30-6.10); WHITE BLOOD COUNT 7.8 10^3/uL (4.0-10.0)
[2022-09-07 06:38] LABS: ALKALINE PHOSPHATASE 74 U/L (46-116); ALT/SGPT < 9 U/L (7.0-40); AST/SGOT 20 U/L (<34); BILIRUBIN,TOTAL 0.6 MG/DL (0.3-1.2); BLOOD UREA NITROGEN 31 MG/DL (9-23); CALCIUM LEVEL 8.6 MG/DL (8.3-10.6); CARBON DIOXIDE LEVEL 20 MMOL/L (20-31); CHLORIDE LEVEL 112 MMOL/L (98-107); GLOMERULAR FILTRATION RATE 36.8 (>42); GLUCOSE, FASTING 122 MG/DL (74-106); MAGNESIUM LEVEL 1.9 MG/DL (1.8-2.4); POTASSIUM SERUM 4.5 MMOL/L (3.5-5.1); SODIUM LEVEL 143 MMOL/L (136-145); TOTAL PROTEIN 6.1 G/DL (5.7-8.2)
[2022-09-07] MEDS ORDERED: ENOXAPARIN 40MG/0.4ML SYRINGE (J1650 PER 10MG) SC SCH (09:00)
[2022-09-07] MEDS: HEPARIN SOD (PORCINE) 5000UNITS/ML 1ML VIAL/SYRINGE SQ SCH ×2 (09:44→20:14)
[2022-09-07] MEDS: LACTIC ACID 12% LOTION 225 GM BTL TOP SCH (09:45)
[2022-09-07] MEDS: LEVOTHYROXINE 25MCG TABLET (0.025MG) PO SCH (12:46)
[2022-09-07] MEDS: ASPIRIN 81MG ENTERIC TABLET PO SCH (12:49)
[2022-09-07] MEDS: PANTOPRAZOLE 40MG TAB (PROTONIX) PO SCH (12:50)
[2022-09-07] MEDS: FOLIC ACID 1MG TAB PO SCH (12:51)
[2022-09-07] MEDS: FERROUS GLUCONATE 324 MG TAB PO SCH (12:52)
[2022-09-07] MEDS: VITAMIN D 1,000 INTERNATIONAL UNITS TABLET PO SCH (12:53)
[2022-09-07] MEDS: METOPROLOL SUCC *XL* 25MG TAB (TopROL *XL*) PO SCH (12:54)
[2022-09-07] MEDS ORDERED: **hydrALAZINE** 50 MG TAB PO ONE (13:05)
[2022-09-07] MEDS: DULoxetine 20MG CAP (CYMBALTA) PO SCH ×2 (13:19→20:14)
[2022-09-07] MEDS: D5W/0.45% SODIUM CHLORIDE 1,000 ML IV SCH (13:56)
[2022-09-07] MEDS: EZETIMIBE 10MG TABLET (ZETIA) PO SCH (14:38)
[2022-09-07] MEDS ORDERED: **hydrALAZINE HCL** 25 MG TAB PO PRN (15:00)
[2022-09-07] MEDS: hydrALAZINE 20MG/ML 1ML VIAL IV PRN (17:21)
[2022-09-07 19:13] LABS: C REACTIVE PROTEIN QUANTITATIV 0.5 MG/DL (<1.0); CALCIUM LEVEL 8.4 MG/DL (8.3-10.6); CREATININE FOR GFR 1.85 MG/DL (0.70-1.30); GLOMERULAR FILTRATION RATE 37.9 (>42); POTASSIUM SERUM 4.5 MMOL/L (3.5-5.1)
[2022-09-07 19:20] LABS: PROCALCITONIN 0.22 ng/ml
[2022-09-07] MEDS: cefTRIAXone SOD 1 GM in D5W MINI-BAG PLUS 50 ML IV SCH (20:13)
[2022-09-07] MEDS: ATORVASTATIN 20 MG TAB PO SCH (20:14)
[2022-09-07] MEDS ORDERED: SENNA 8.6 MG TAB (SENOKOT) PO SCH (21:00)
[2022-09-08] VITALS (15 sets, daily range): BP systolic 168–198; BP diastolic 78–90; TEMP 97.1–98.4; O2SAT 94–97
[2022-09-08] MEDS: D5W/0.45% SODIUM CHLORIDE 1,000 ML IV SCH ×2 (04:41→20:15)
[2022-09-08] MEDS: LEVOTHYROXINE 25MCG TABLET (0.025MG) PO SCH (04:45)
[2022-09-08] MEDS: INSULIN LISPRO (NovoLOG) PER UNIT SC SCH ×4 (05:09→23:58)
[2022-09-08 06:02] LABS: BASO # 0.1 10^3/uL (0.0-0.2); BASO % 0.7 % (0.0-1.0); EOS # 1.4 10^3/uL (0.0-0.5); EOS % 15.9 % (0.0-3.0); HEMATOCRIT 33.3 % (42.0-52.0); HEMOGLOBIN 10.7 g/dl (13.5-17.5); LYMPH # 1.4 10^3/uL (1.5-5.0); LYMPH % 16.3 % (24.0-44.0); MEAN CORPUSCULAR HEMOGLOBIN 29.6 pg (27.0-33.0); MEAN CORPUSCULAR HGB CONC 32.1 g/dl (32.0-36.5); MEAN CORPUSCULAR VOLUME 92.2 fl (80.0-96.0); MONO # 0.7 10^3/uL (0.0-0.8); NEUTROPHILS % 58.6 % (36.0-66.0); PLATELET COUNT, AUTOMATED 216 10^3/uL (150-450); RED BLOOD COUNT 3.61 10^6/uL (4.30-6.10); WHITE BLOOD COUNT 8.5 10^3/uL (4.0-10.0)
[2022-09-08 06:20] LABS: CALCIUM LEVEL 8.7 MG/DL (8.3-10.6); CREATININE FOR GFR 1.77 MG/DL (0.70-1.30); GLOMERULAR FILTRATION RATE 39.9 (>42); POTASSIUM SERUM 4.1 MMOL/L (3.5-5.1)
[2022-09-08] MEDS: EZETIMIBE 10MG TABLET (ZETIA) PO SCH (10:01)
[2022-09-08] MEDS: FOLIC ACID 1MG TAB PO SCH (10:01)
[2022-09-08] MEDS: PANTOPRAZOLE 40MG TAB (PROTONIX) PO SCH (10:01)
[2022-09-08] MEDS: DULoxetine 20MG CAP (CYMBALTA) PO SCH ×2 (10:01→20:15)
[2022-09-08] MEDS: ASPIRIN 81MG ENTERIC TABLET PO SCH (10:01)
[2022-09-08] MEDS: METOPROLOL SUCC *XL* 25MG TAB (TopROL *XL*) PO SCH (10:02)
[2022-09-08] MEDS: VITAMIN D 1,000 INTERNATIONAL UNITS TABLET PO SCH (10:02)
[2022-09-08] MEDS: LACTIC ACID 12% LOTION 225 GM BTL TOP SCH (10:03)
[2022-09-08] MEDS: HEPARIN SOD (PORCINE) 5000UNITS/ML 1ML VIAL/SYRINGE SQ SCH ×2 (10:03→20:15)
[2022-09-08] MEDS: FERROUS GLUCONATE 324 MG TAB PO SCH (10:05)
[2022-09-08] MEDS ORDERED: amLODIPine 5 MG TAB PO ONE (12:05)
[2022-09-08] MEDS: ATORVASTATIN 20 MG TAB PO SCH (20:15)
[2022-09-08] MEDS: cefTRIAXone SOD 1 GM in D5W MINI-BAG PLUS 50 ML IV SCH (20:15)
[2022-09-08] MEDS: hydrALAZINE 20MG/ML 1ML VIAL IV PRN (23:52)
[2022-09-09] VITALS (11 sets, daily range): BP systolic 131–184; BP diastolic 66–81; TEMP 97.3–102.4; O2SAT 94–96
[2022-09-09] MEDS: LEVOTHYROXINE 25MCG TABLET (0.025MG) PO SCH (05:36)
[2022-09-09] MEDS: INSULIN LISPRO (NovoLOG) PER UNIT SC SCH ×3 (05:39→17:22)
[2022-09-09 06:00] LABS: BASO # 0.1 10^3/uL (0.0-0.2); BASO % 0.8 % (0.0-1.0); EOS # 1.4 10^3/uL (0.0-0.5); EOS % 15.9 % (0.0-3.0); HEMATOCRIT 33.7 % (42.0-52.0); HEMOGLOBIN 10.8 g/dl (13.5-17.5); LYMPH # 1.3 10^3/uL (1.5-5.0); LYMPH % 14.7 % (24.0-44.0); MEAN CORPUSCULAR HEMOGLOBIN 29.7 pg (27.0-33.0); MEAN CORPUSCULAR VOLUME 92.6 fl (80.0-96.0); MONO # 0.7 10^3/uL (0.0-0.8); MONO % 7.9 % (2.0-8.0); NEUTROPHILS # 5.3 10^3/uL (1.5-8.5); NEUTROPHILS % 60.2 % (36.0-66.0); PLATELET COUNT, AUTOMATED 200 10^3/uL (150-450); RED BLOOD COUNT 3.64 10^6/uL (4.30-6.10); WHITE BLOOD COUNT 8.7 10^3/uL (4.0-10.0)
[2022-09-09 06:19] LABS: CALCIUM LEVEL 8.3 MG/DL (8.3-10.6); CREATININE FOR GFR 1.65 MG/DL (0.70-1.30); GLOMERULAR FILTRATION RATE 43.3 (>42); POTASSIUM SERUM 3.9 MMOL/L (3.5-5.1)
[2022-09-09] MEDS: FOLIC ACID 1MG TAB PO SCH (10:05)
[2022-09-09] MEDS: ASPIRIN 81MG ENTERIC TABLET PO SCH (10:05)
[2022-09-09] MEDS: HEPARIN SOD (PORCINE) 5000UNITS/ML 1ML VIAL/SYRINGE SQ SCH ×2 (10:05→20:26)
[2022-09-09] MEDS: VITAMIN D 1,000 INTERNATIONAL UNITS TABLET PO SCH (10:05)
[2022-09-09] MEDS: EZETIMIBE 10MG TABLET (ZETIA) PO SCH (10:05)
[2022-09-09] MEDS: METOPROLOL SUCC (TopROL XL) 50MG **XL** TAB PO SCH (10:06)
[2022-09-09] MEDS: FERROUS GLUCONATE 324 MG TAB PO SCH (10:06)
[2022-09-09] MEDS: DULoxetine 20MG CAP (CYMBALTA) PO SCH ×2 (10:06→20:23)
[2022-09-09] MEDS: DONEPEZIL 5 MG TAB PO SCH (10:06)
[2022-09-09] MEDS: PANTOPRAZOLE 40MG TAB (PROTONIX) PO SCH (10:06)
[2022-09-09] MEDS: LACTIC ACID 12% LOTION 225 GM BTL TOP SCH (10:07)
[2022-09-09] MEDS: ONDANSETRON 4MG 2ML VIAL IV PRN (14:42)
[2022-09-09] MEDS ORDERED: ACETAMINOPHEN 650MG SUPP PR ONE (14:50)
[2022-09-09] MEDS: D5W/0.45% SODIUM CHLORIDE 1,000 ML IV SCH (15:14)
[2022-09-09] MEDS: IPRATROPIUM 0.5MG/ALBUTEROL 2.5MG INH SOL UD 3ML (DUONEB) INH SCH ×2 (15:19→20:06)
[2022-09-09] MEDS: metroNIDAZOLE 500 MG in IV 1 EA IV SCH ×2 (15:32→23:36)
[2022-09-09] MEDS: ATORVASTATIN 20 MG TAB PO SCH (20:23)
[2022-09-09] MEDS: cefTRIAXone SOD 1 GM in D5W MINI-BAG PLUS 50 ML IV SCH (20:26)
[2022-09-10] VITALS (30 sets, daily range): BP systolic 144–162; BP diastolic 70–88; TEMP 97.3–98.3; O2SAT 88–99
[2022-09-10] MEDS: IPRATROPIUM 0.5MG/ALBUTEROL 2.5MG INH SOL UD 3ML (DUONEB) INH SCH ×4 (01:50→20:11)
[2022-09-10] MEDS: INSULIN LISPRO (NovoLOG) PER UNIT SC SCH ×5 (06:00→21:00)
[2022-09-10] MEDS: LEVOTHYROXINE 25MCG TABLET (0.025MG) PO SCH (06:00)
[2022-09-10 06:12] LABS: BASO # 0.1 10^3/uL (0.0-0.2); BASO % 0.7 % (0.0-1.0); EOS # 1.1 10^3/uL (0.0-0.5); EOS % 14.6 % (0.0-3.0); HEMATOCRIT 31.6 % (42.0-52.0); HEMOGLOBIN 10.3 g/dl (13.5-17.5); LYMPH # 1.5 10^3/uL (1.5-5.0); LYMPH % 19.1 % (24.0-44.0); MEAN CORPUSCULAR HEMOGLOBIN 30.6 pg (27.0-33.0); MEAN CORPUSCULAR HGB CONC 32.6 g/dl (32.0-36.5); MEAN CORPUSCULAR VOLUME 93.8 fl (80.0-96.0); MONO # 0.7 10^3/uL (0.0-0.8); MONO % 8.7 % (2.0-8.0); NEUTROPHILS # 4.3 10^3/uL (1.5-8.5); NEUTROPHILS % 56.6 % (36.0-66.0); PLATELET COUNT, AUTOMATED 181 10^3/uL (150-450); RED BLOOD COUNT 3.37 10^6/uL (4.30-6.10); WHITE BLOOD COUNT 7.6 10^3/uL (4.0-10.0)
[2022-09-10 06:34] LABS: CALCIUM LEVEL 8.3 MG/DL (8.3-10.6); CREATININE FOR GFR 1.82 MG/DL (0.70-1.30); GLOMERULAR FILTRATION RATE 38.6 (>42); POTASSIUM SERUM 3.8 MMOL/L (3.5-5.1)
[2022-09-10] MEDS: D5W/0.45% SODIUM CHLORIDE 1,000 ML IV SCH (10:17)
[2022-09-10] MEDS: metroNIDAZOLE 500 MG in IV 1 EA IV SCH ×3 (10:17→23:32)
[2022-09-10] MEDS: PANTOPRAZOLE 40MG VIAL IV SCH (10:17)
[2022-09-10] MEDS: HEPARIN SOD (PORCINE) 5000UNITS/ML 1ML VIAL/SYRINGE SQ SCH ×2 (10:17→21:33)
[2022-09-10] MEDS: EZETIMIBE 10MG TABLET (ZETIA) PO SCH (10:18)
[2022-09-10] MEDS: DONEPEZIL 5 MG TAB PO SCH (10:18)
[2022-09-10] MEDS: FERROUS GLUCONATE 324 MG TAB PO SCH (10:18)
[2022-09-10] MEDS: FOLIC ACID 1MG TAB PO SCH (10:18)
[2022-09-10] MEDS: ASPIRIN 81MG ENTERIC TABLET PO SCH (10:18)
[2022-09-10] MEDS: DULoxetine 20MG CAP (CYMBALTA) PO SCH ×2 (10:18→21:33)
[2022-09-10] MEDS: LACTIC ACID 12% LOTION 225 GM BTL TOP SCH (10:19)
[2022-09-10] MEDS: VITAMIN D 1,000 INTERNATIONAL UNITS TABLET PO SCH (10:19)
[2022-09-10] MEDS: METOPROLOL SUCC (TopROL XL) 50MG **XL** TAB PO SCH (10:21)
[2022-09-10] MEDS: ONDANSETRON 4MG 2ML VIAL IV PRN (14:36)
[2022-09-10] MEDS: ATORVASTATIN 20 MG TAB PO SCH (21:33)
[2022-09-10] MEDS: cefTRIAXone SOD 1 GM in D5W MINI-BAG PLUS 50 ML IV SCH (21:34)
[2022-09-11] VITALS (29 sets, daily range): BP systolic 130–166; BP diastolic 60–88; TEMP 96.8–98.6; O2SAT 91–98
[2022-09-11] MEDS: IPRATROPIUM 0.5MG/ALBUTEROL 2.5MG INH SOL UD 3ML (DUONEB) INH SCH ×4 (02:44→20:05)
[2022-09-11 05:11] LABS: BASO # 0.1 10^3/uL (0.0-0.2); BASO % 0.6 % (0.0-1.0); EOS # 1.5 10^3/uL (0.0-0.5); EOS % 16.6 % (0.0-3.0); HEMATOCRIT 34.4 % (42.0-52.0); LYMPH # 1.3 10^3/uL (1.5-5.0); LYMPH % 14.1 % (24.0-44.0); MEAN CORPUSCULAR HEMOGLOBIN 29.9 pg (27.0-33.0); MEAN CORPUSCULAR VOLUME 93.5 fl (80.0-96.0); MONO # 0.8 10^3/uL (0.0-0.8); MONO % 8.2 % (2.0-8.0); NEUTROPHILS # 5.6 10^3/uL (1.5-8.5); NEUTROPHILS % 60.2 % (36.0-66.0); PLATELET COUNT, AUTOMATED 160 10^3/uL (150-450); RED BLOOD COUNT 3.68 10^6/uL (4.30-6.10); WHITE BLOOD COUNT 9.3 10^3/uL (4.0-10.0)
[2022-09-11 05:46] LABS: CALCIUM LEVEL 8.9 MG/DL (8.3-10.6); CREATININE FOR GFR 1.66 MG/DL (0.70-1.30); POTASSIUM SERUM 3.9 MMOL/L (3.5-5.1)
[2022-09-11] MEDS: LEVOTHYROXINE 25MCG TABLET (0.025MG) PO SCH (06:18)
[2022-09-11] MEDS: metroNIDAZOLE 500 MG in IV 1 EA IV SCH ×3 (06:56→23:33)
[2022-09-11] MEDS: INSULIN LISPRO (NovoLOG) PER UNIT SC SCH ×4 (09:04→20:48)
[2022-09-11] MEDS: EZETIMIBE 10MG TABLET (ZETIA) PO SCH (09:31)
[2022-09-11] MEDS: DULoxetine 20MG CAP (CYMBALTA) PO SCH ×2 (09:31→20:48)
[2022-09-11] MEDS: VITAMIN D 1,000 INTERNATIONAL UNITS TABLET PO SCH (09:31)
[2022-09-11] MEDS: PANTOPRAZOLE 40MG VIAL IV SCH (09:32)
[2022-09-11] MEDS: HEPARIN SOD (PORCINE) 5000UNITS/ML 1ML VIAL/SYRINGE SQ SCH ×2 (09:32→20:48)
[2022-09-11] MEDS: METOPROLOL SUCC (TopROL XL) 50MG **XL** TAB PO SCH (09:32)
[2022-09-11] MEDS: FOLIC ACID 1MG TAB PO SCH (09:32)
[2022-09-11] MEDS: ASPIRIN 81MG ENTERIC TABLET PO SCH (09:32)
[2022-09-11] MEDS: FERROUS GLUCONATE 324 MG TAB PO SCH (09:32)
[2022-09-11] MEDS: DONEPEZIL 5 MG TAB PO SCH (09:32)
[2022-09-11] MEDS: LACTIC ACID 12% LOTION 225 GM BTL TOP SCH (09:33)
[2022-09-11] MEDS: TORSEMIDE 10 MG TABLET PO SCH (11:57)
[2022-09-11] MEDS: SENOKOT S TAB PO SCH ×2 (11:57→20:48)
[2022-09-11] MEDS: ATORVASTATIN 20 MG TAB PO SCH (20:48)
[2022-09-11] MEDS: cefTRIAXone SOD 1 GM in D5W MINI-BAG PLUS 50 ML IV SCH (20:48)
[2022-09-12] VITALS (22 sets, daily range): BP systolic 156–166; BP diastolic 64–85; TEMP 96.5–98.6; O2SAT 88–97
[2022-09-12] MEDS: IPRATROPIUM 0.5MG/ALBUTEROL 2.5MG INH SOL UD 3ML (DUONEB) INH SCH ×4 (02:47→19:58)
[2022-09-12 05:12] LABS: BASO # 0.1 10^3/uL (0.0-0.2); BASO % 0.7 % (0.0-1.0); EOS # 1.5 10^3/uL (0.0-0.5); EOS % 17.6 % (0.0-3.0); HEMATOCRIT 35.2 % (42.0-52.0); HEMOGLOBIN 11.2 g/dl (13.5-17.5); LYMPH # 1.3 10^3/uL (1.5-5.0); LYMPH % 14.4 % (24.0-44.0); MEAN CORPUSCULAR HEMOGLOBIN 29.6 pg (27.0-33.0); MEAN CORPUSCULAR HGB CONC 31.8 g/dl (32.0-36.5); MEAN CORPUSCULAR VOLUME 93.1 fl (80.0-96.0); MONO # 0.7 10^3/uL (0.0-0.8); MONO % 7.6 % (2.0-8.0); NEUTROPHILS # 5.1 10^3/uL (1.5-8.5); NEUTROPHILS % 59.4 % (36.0-66.0); PLATELET COUNT, AUTOMATED 162 10^3/uL (150-450); RED BLOOD COUNT 3.78 10^6/uL (4.30-6.10); WHITE BLOOD COUNT 8.7 10^3/uL (4.0-10.0)
[2022-09-12 05:33] LABS: CALCIUM LEVEL 8.4 MG/DL (8.3-10.6); CREATININE FOR GFR 1.7 MG/DL (0.70-1.30); GLOMERULAR FILTRATION RATE 41.8 (>42); POTASSIUM SERUM 3.7 MMOL/L (3.5-5.1)
[2022-09-12] MEDS: LEVOTHYROXINE 25MCG TABLET (0.025MG) PO SCH (05:58)
[2022-09-12] MEDS: metroNIDAZOLE 500 MG in IV 1 EA IV SCH ×3 (06:48→23:32)
[2022-09-12] MEDS: INSULIN LISPRO (NovoLOG) PER UNIT SC SCH ×4 (07:30→21:00)
[2022-09-12] MEDS: ACETAMINOPHEN TAB 650MG DOSE (2X325MG) PO PRN (09:15)
[2022-09-12] MEDS: SENOKOT S TAB PO SCH ×2 (09:15→21:55)
[2022-09-12] MEDS: DULoxetine 20MG CAP (CYMBALTA) PO SCH ×2 (09:15→21:55)
[2022-09-12] MEDS: HEPARIN SOD (PORCINE) 5000UNITS/ML 1ML VIAL/SYRINGE SQ SCH ×2 (09:15→21:55)
[2022-09-12] MEDS: METOPROLOL SUCC (TopROL XL) 50MG **XL** TAB PO SCH (09:16)
[2022-09-12] MEDS: PANTOPRAZOLE 40MG TAB (PROTONIX) PO SCH (09:16)
[2022-09-12] MEDS: ASPIRIN 81MG ENTERIC TABLET PO SCH (09:16)
[2022-09-12] MEDS: VITAMIN D 1,000 INTERNATIONAL UNITS TABLET PO SCH (09:16)
[2022-09-12] MEDS: EZETIMIBE 10MG TABLET (ZETIA) PO SCH (09:16)
[2022-09-12] MEDS: FERROUS GLUCONATE 324 MG TAB PO SCH (09:16)
[2022-09-12] MEDS: DONEPEZIL 5 MG TAB PO SCH (09:17)
[2022-09-12] MEDS: LACTIC ACID 12% LOTION 225 GM BTL TOP SCH (09:17)
[2022-09-12] MEDS: TORSEMIDE 10 MG TABLET PO SCH (09:17)
[2022-09-12] MEDS: FOLIC ACID 1MG TAB PO SCH (09:17)
[2022-09-12] MEDS: ONDANSETRON 4MG 2ML VIAL IV PRN (12:18)
[2022-09-12] MEDS: ATORVASTATIN 20 MG TAB PO SCH (21:55)
[2022-09-12] MEDS: cefTRIAXone SOD 1 GM in D5W MINI-BAG PLUS 50 ML IV SCH (21:55)
[2022-09-13] MEDS: IPRATROPIUM 0.5MG/ALBUTEROL 2.5MG INH SOL UD 3ML (DUONEB) INH SCH ×4 (01:26→20:19)
[2022-09-13 05:31] LABS: BASO % 0.5 % (0.0-1.0); EOS # 1.3 10^3/uL (0.0-0.5); EOS % 15.2 % (0.0-3.0); HEMATOCRIT 36.1 % (42.0-52.0); HEMOGLOBIN 11.5 g/dl (13.5-17.5); LYMPH # 1.6 10^3/uL (1.5-5.0); LYMPH % 18.7 % (24.0-44.0); MEAN CORPUSCULAR HEMOGLOBIN 29.7 pg (27.0-33.0); MEAN CORPUSCULAR HGB CONC 31.9 g/dl (32.0-36.5); MEAN CORPUSCULAR VOLUME 93.3 fl (80.0-96.0); MONO # 0.7 10^3/uL (0.0-0.8); NEUTROPHILS # 4.9 10^3/uL (1.5-8.5); NEUTROPHILS % 57.2 % (36.0-66.0); PLATELET COUNT, AUTOMATED 172 10^3/uL (150-450); RED BLOOD COUNT 3.87 10^6/uL (4.30-6.10); WHITE BLOOD COUNT 8.6 10^3/uL (4.0-10.0)
[2022-09-13 06:00] VITALS: TEMP 97.2
[2022-09-13] MEDS: LEVOTHYROXINE 25MCG TABLET (0.025MG) PO SCH (06:23)
[2022-09-13 06:34] LABS: CALCIUM LEVEL 8.2 MG/DL (8.3-10.6); CREATININE FOR GFR 1.77 MG/DL (0.70-1.30); GLOMERULAR FILTRATION RATE 39.9 (>42)
[2022-09-13] MEDS: INSULIN LISPRO (NovoLOG) PER UNIT SC SCH ×4 (07:30→20:19)
[2022-09-13 08:55] VITALS: BP 170/82; TEMP 97.4; O2SAT 95
[2022-09-13] MEDS: SENOKOT S TAB PO SCH ×2 (09:52→20:23)
[2022-09-13] MEDS: EZETIMIBE 10MG TABLET (ZETIA) PO SCH (09:52)
[2022-09-13] MEDS: DONEPEZIL 5 MG TAB PO SCH (09:53)
[2022-09-13] MEDS: FERROUS GLUCONATE 324 MG TAB PO SCH (09:53)
[2022-09-13] MEDS: DULoxetine 20MG CAP (CYMBALTA) PO SCH ×2 (09:53→20:23)
[2022-09-13] MEDS: TORSEMIDE 10 MG TABLET PO SCH (09:53)
[2022-09-13] MEDS: FOLIC ACID 1MG TAB PO SCH (09:53)
[2022-09-13] MEDS: ASPIRIN 81MG ENTERIC TABLET PO SCH (09:53)
[2022-09-13] MEDS: PANTOPRAZOLE 40MG TAB (PROTONIX) PO SCH (09:53)
[2022-09-13] MEDS: VITAMIN D 1,000 INTERNATIONAL UNITS TABLET PO SCH (09:54)
[2022-09-13] MEDS: METOPROLOL SUCC (TopROL XL) 50MG **XL** TAB PO SCH (09:54)
[2022-09-13] MEDS: HEPARIN SOD (PORCINE) 5000UNITS/ML 1ML VIAL/SYRINGE SQ SCH ×2 (09:54→20:23)
[2022-09-13] MEDS: LACTIC ACID 12% LOTION 225 GM BTL TOP SCH (09:55)
[2022-09-13 12:46] VITALS: BP 169/81; TEMP 97.3; O2SAT 98
[2022-09-13] MEDS: ONDANSETRON 4MG 2ML VIAL IV PRN (12:53)
[2022-09-13] MEDS ORDERED: METOPROLOL SUCC (TopROL XL) 50MG **XL** TAB PO ONE (16:45)
[2022-09-13 17:00] VITALS: BP 152/70
[2022-09-13 20:08] VITALS: BP 164/79; TEMP 97.4; O2SAT 97
[2022-09-13] MEDS: ATORVASTATIN 20 MG TAB PO SCH (20:24)
[2022-09-14] VITALS: TEMP 97.6
[2022-09-14] MEDS: IPRATROPIUM 0.5MG/ALBUTEROL 2.5MG INH SOL UD 3ML (DUONEB) INH SCH ×2 (02:00→07:39)
[2022-09-14 03:47] VITALS: BP 142/74; TEMP 98.6; O2SAT 94
[2022-09-14] MEDS: LEVOTHYROXINE 25MCG TABLET (0.025MG) PO SCH (05:33)
[2022-09-14 06:05] LABS: BASO % 0.4 % (0.0-1.0); EOS # 1.6 10^3/uL (0.0-0.5); EOS % 17.6 % (0.0-3.0); HEMATOCRIT 35.2 % (42.0-52.0); HEMOGLOBIN 11.6 g/dl (13.5-17.5); LYMPH # 1.6 10^3/uL (1.5-5.0); LYMPH % 17.7 % (24.0-44.0); MEAN CORPUSCULAR HEMOGLOBIN 30.2 pg (27.0-33.0); MEAN CORPUSCULAR VOLUME 91.7 fl (80.0-96.0); MONO # 0.7 10^3/uL (0.0-0.8); MONO % 7.7 % (2.0-8.0); NEUTROPHILS # 5.1 10^3/uL (1.5-8.5); NEUTROPHILS % 56.2 % (36.0-66.0); PLATELET COUNT, AUTOMATED 184 10^3/uL (150-450); RED BLOOD COUNT 3.84 10^6/uL (4.30-6.10); WHITE BLOOD COUNT 9.1 10^3/uL (4.0-10.0)
[2022-09-14 06:28] LABS: CALCIUM LEVEL 8.7 MG/DL (8.3-10.6); CREATININE FOR GFR 1.6 MG/DL (0.70-1.30); GLOMERULAR FILTRATION RATE 44.8 (>42); POTASSIUM SERUM 3.7 MMOL/L (3.5-5.1)
[2022-09-14] MEDS: INSULIN LISPRO (NovoLOG) PER UNIT SC SCH (07:30)
[2022-09-14] MEDS ORDERED: METOPROLOL SUCC (TopROL XL) 100MG *XL* TAB PO SCH (09:00)
[2022-09-14] MEDS: LACTIC ACID 12% LOTION 225 GM BTL TOP SCH (09:00)
[2022-09-14] MEDS: HEPARIN SOD (PORCINE) 5000UNITS/ML 1ML VIAL/SYRINGE SQ SCH (09:04)
[2022-09-14 09:05] VITALS: BP 141/73
[2022-09-14] MEDS: DONEPEZIL 5 MG TAB PO SCH (09:05)
[2022-09-14] MEDS: DULoxetine 20MG CAP (CYMBALTA) PO SCH (09:05)
[2022-09-14] MEDS: TORSEMIDE 10 MG TABLET PO SCH (09:05)
[2022-09-14] MEDS: PANTOPRAZOLE 40MG TAB (PROTONIX) PO SCH (09:05)
[2022-09-14] MEDS: EZETIMIBE 10MG TABLET (ZETIA) PO SCH (09:05)
[2022-09-14] MEDS: VITAMIN D 1,000 INTERNATIONAL UNITS TABLET PO SCH (09:05)
[2022-09-14] MEDS: FERROUS GLUCONATE 324 MG TAB PO SCH (09:05)
[2022-09-14] MEDS: SENOKOT S TAB PO SCH (09:06)
[2022-09-14] MEDS: ASPIRIN 81MG ENTERIC TABLET PO SCH (09:06)
[2022-09-14] MEDS: FOLIC ACID 1MG TAB PO SCH (09:06)
[2022-09-14] MEDS: ACETAMINOPHEN TAB 650MG DOSE (2X325MG) PO PRN (09:07)
[2022-09-14] MEDS ORDERED: ARIC1TAB PO (11:07)
[2022-09-14] MEDS ORDERED: TORS10TA3 PO (11:07)
[2022-09-14] MEDS ORDERED: AMLO1TAB25 PO (11:07)
[2022-09-14] MEDS ORDERED: METO1TAB33 PO (11:07)
== END 2022-09-14 12:19 | DRG 698 ==
LOC: EDBD 16:10 → M ED 16:10 → M ED INP 09-07 00:38 → M MS4PR 09-07 02:30 → M PCU 09-07 16:38 → M MSPAV 09-14 03:47
PROVIDERS: ADMIT Internal Medicine; ATTEND Family Medicine
DX: T83.511A Infection and inflammatory reaction due to indwelling urethral catheter, initial encounter (principal); J69.0 Pneumonitis due to inhalation of food and vomit; G93.41 Metabolic encephalopathy; N39.0 Urinary tract infection, site not specified; E11.51 Type 2 diabetes mellitus with diabetic peripheral angiopathy without gangrene; E03.9 Hypothyroidism, unspecified; I12.9 Hypertensive chronic kidney disease with stage 1 through stage 4 chronic kidney disease, or unspecified chronic kidney disease; E11.22 Type 2 diabetes mellitus with diabetic chronic kidney disease; N18.30 Chronic kidney disease, stage 3 unspecified; D63.1 Anemia in chronic kidney disease; I25.2 Old myocardial infarction; I25.10 Atherosclerotic heart disease of native coronary artery without angina pectoris; K59.09 Other constipation; R33.9 Retention of urine, unspecified; G47.33 Obstructive sleep apnea (adult) (pediatric); E55.9 Vitamin D deficiency, unspecified; Z95.1 Presence of aortocoronary bypass graft; M48.07 Spinal stenosis, lumbosacral region; R56.9 Unspecified convulsions; Z86.73 Personal history of transient ischemic attack (TIA), and cerebral infarction without residual deficits; E78.5 Hyperlipidemia, unspecified; Z79.899 Other long term (current) drug therapy; Z79.82 Long term (current) use of aspirin; Z88.5 Allergy status to narcotic agent; Y84.6 Urinary catheterization as the cause of abnormal reaction of the patient, or of later complication, without mention of misadventure at the time of the procedure

== ENCOUNTER → 2022-09-06 | Outpatient (REF) | LOC: SKLAB3 07:02 | PROVIDERS: ATTEND Nurse Practitioner Family | DX: E11.9 Type 2 diabetes mellitus without complications (principal) ==

== ENCOUNTER → 2022-09-17 | Outpatient (REF) ==
[~2022-09-17] MED LIST changes: +ACET650S3 PR; +AMLO1TAB25 PO; +ARIC1TAB PO; +BACL5TAB2 PO; +DULC10SU2 PR; +IPRA0.00 INH; +METO100T5 PO; +METO1TAB32 PO; +METO1TAB33 PO; +TORS10TA3 PO
[2022-09-17 08:31] LABS: HEMOGLOBIN 13.2 g/dl (13.5-17.5); MEAN CORPUSCULAR HEMOGLOBIN 30.1 pg (27.0-33.0); MEAN CORPUSCULAR VOLUME 91.1 fl (80.0-96.0); PLATELET COUNT, AUTOMATED 178 10^3/uL (150-450); RED BLOOD COUNT 4.39 10^6/uL (4.30-6.10)
== END ==
LOC: SKLAB3 07:38
PROVIDERS: ATTEND Internal Medicine
DX: D64.9 Anemia, unspecified (principal)

== ENCOUNTER → 2022-09-30 | Outpatient (REF) | payer MEDICARE, OTHER ==
[~2022-09-30] MED LIST changes: +CLOP75TA2 PO; +CYMB1CAP5 PO; +MAGN400C PO; +MEMA1TAB3 PO
[2022-09-30 18:19] LABS: APPEARANCE, URINE CLEAR (CLEAR); BACTERIA, URINE AUTO NEGATIVE (NEGATIVE); BILIRUBIN, URINE AUTO NEGATIVE (NEGATIVE); BLOOD, URINE BLOOD NEGATIVE (NEGATIVE); COLOR, URINE YELLOW (YELLOW); GLUCOSE, URINE (UA) AUTO NEGATIVE (NEGATIVE); KETONE, URINE AUTO NEGATIVE (NEGATIVE); LEUKOCYTE ESTERASE, URINE AUTO NEGATIVE (NEGATIVE); NITRITE, URINE AUTO NEGATIVE (NEGATIVE); PROTEIN, URINE AUTO NEGATIVE (NEGATIVE); RBC, URINE AUTO 3 /HPF (0-3); SPECIFIC GRAVITY URINE AUTO 1.008 (1.002-1.035); SQUAMOUS EPITHELIAL CELL UR AU 0 /HPF (0-6); UROBILINOGEN, URINE AUTO 0.2 mg/dL (0.0-2.0); WBC, URINE AUTO 1 /HPF (0-3)
== END ==
LOC: M SMT 16:58
PROVIDERS: ATTEND Physician Assistant
DX: R33.9 Retention of urine, unspecified (principal)

== ENCOUNTER → 2022-09-30 | Outpatient (REF) | payer BC, MEDICARE, OTHER ==
[2022-09-30 07:00] LABS: HEMATOCRIT 33.7 % (42.0-52.0); HEMOGLOBIN 11.1 g/dl (13.5-17.5); MEAN CORPUSCULAR HEMOGLOBIN 30.4 pg (27.0-33.0); MEAN CORPUSCULAR HGB CONC 32.9 g/dl (32.0-36.5); MEAN CORPUSCULAR VOLUME 92.3 fl (80.0-96.0); PLATELET COUNT, AUTOMATED 223 10^3/uL (150-450); RED BLOOD COUNT 3.65 10^6/uL (4.30-6.10); WHITE BLOOD COUNT 7.5 10^3/uL (4.0-10.0)
[2022-09-30 07:31] LABS: CALCIUM LEVEL 9.3 MG/DL (8.3-10.6); CREATININE FOR GFR 2.25 MG/DL (0.70-1.30); GLOMERULAR FILTRATION RATE 30.3 (>42); POTASSIUM SERUM 4.4 MMOL/L (3.5-5.1)
== END ==
LOC: SKLAB3 07:00
PROVIDERS: ATTEND Internal Medicine
DX: D64.9 Anemia, unspecified (principal); E83.42 Hypomagnesemia

== ENCOUNTER → 2022-10-01 | Outpatient (REF) | payer MEDICARE, OTHER | LOC: SKLAB3 10:48 | PROVIDERS: ATTEND Internal Medicine | DX: N18.9 Chronic kidney disease, unspecified (principal); D63.1 Anemia in chronic kidney disease; Z53.8 Procedure and treatment not carried out for other reasons ==

== ENCOUNTER → 2022-10-07 | Outpatient (REF) ==
[~2022-10-07] MED LIST changes: -GABA-283 PO; +GABA-284 PO
[2022-10-07 07:57] LABS: CALCIUM LEVEL 9.3 MG/DL (8.3-10.6); CREATININE FOR GFR 1.88 MG/DL (0.70-1.30); GLOMERULAR FILTRATION RATE 37.2 (>42); MAGNESIUM LEVEL 1.7 MG/DL (1.8-2.4); POTASSIUM SERUM 4.7 MMOL/L (3.5-5.1)
== END ==
LOC: SKLAB3 10:36
PROVIDERS: ATTEND Internal Medicine
DX: E11.22 Type 2 diabetes mellitus with diabetic chronic kidney disease (principal); N18.9 Chronic kidney disease, unspecified; I12.9 Hypertensive chronic kidney disease with stage 1 through stage 4 chronic kidney disease, or unspecified chronic kidney disease

== ENCOUNTER → 2022-10-29 | Outpatient (REF) | payer MEDICARE, OTHER ==
[2022-10-29 08:45] LABS: HEMATOCRIT 34.4 % (42.0-52.0); HEMOGLOBIN 11.3 g/dl (13.5-17.5); MEAN CORPUSCULAR HEMOGLOBIN 30.5 pg (27.0-33.0); MEAN CORPUSCULAR HGB CONC 32.8 g/dl (32.0-36.5); PLATELET COUNT, AUTOMATED 176 10^3/uL (150-450); WHITE BLOOD COUNT 5.7 10^3/uL (4.0-10.0)
== END ==
LOC: SKLAB3 07:55
PROVIDERS: ATTEND Internal Medicine
DX: R63.8 Other symptoms and signs concerning food and fluid intake (principal)

== ENCOUNTER → 2022-11-09 | Outpatient (REF) | payer MEDICARE, OTHER ==
[2022-11-09 07:35] LABS: HEMATOCRIT 33.9 % (42.0-52.0); HEMOGLOBIN 11.1 g/dl (13.5-17.5); MEAN CORPUSCULAR HEMOGLOBIN 30.5 pg (27.0-33.0); MEAN CORPUSCULAR HGB CONC 32.7 g/dl (32.0-36.5); MEAN CORPUSCULAR VOLUME 93.1 fl (80.0-96.0); PLATELET COUNT, AUTOMATED 180 10^3/uL (150-450); RED BLOOD COUNT 3.64 10^6/uL (4.30-6.10)
== END ==
LOC: SKLAB3 08:38
PROVIDERS: ATTEND Internal Medicine
DX: D64.9 Anemia, unspecified (principal)

== ENCOUNTER → 2022-11-23 | Outpatient (REF) | payer MEDICARE, OTHER ==
[2022-11-23 08:02] LABS: CALCIUM LEVEL 9.4 MG/DL (8.3-10.6); CREATININE FOR GFR 1.69 MG/DL (0.70-1.30); GLOMERULAR FILTRATION RATE 42.1 (>42); POTASSIUM SERUM 4.8 MMOL/L (3.5-5.1)
[2022-11-23 13:09] LABS: HEMATOCRIT 30.1 % (42.0-52.0); HEMOGLOBIN 9.9 g/dl (13.5-17.5); MEAN CORPUSCULAR HEMOGLOBIN 30.9 pg (27.0-33.0); MEAN CORPUSCULAR HGB CONC 32.9 g/dl (32.0-36.5); MEAN CORPUSCULAR VOLUME 94.1 fl (80.0-96.0); PLATELET COUNT, AUTOMATED 161 10^3/uL (150-450); WHITE BLOOD COUNT 8.2 10^3/uL (4.0-10.0)
== END ==
LOC: SKLAB3 12:52
PROVIDERS: ATTEND Internal Medicine
DX: I51.9 Heart disease, unspecified (principal); D64.9 Anemia, unspecified

== ENCOUNTER → 2022-12-07 | Outpatient (REF) | payer MEDICARE, OTHER ==
[2022-12-07 08:44] LABS: HEMATOCRIT 33.9 % (42.0-52.0); HEMOGLOBIN 11.4 g/dl (13.5-17.5); MEAN CORPUSCULAR HEMOGLOBIN 31.2 pg (27.0-33.0); MEAN CORPUSCULAR HGB CONC 33.6 g/dl (32.0-36.5); MEAN CORPUSCULAR VOLUME 92.9 fl (80.0-96.0); PLATELET COUNT, AUTOMATED 176 10^3/uL (150-450); RED BLOOD COUNT 3.65 10^6/uL (4.30-6.10); WHITE BLOOD COUNT 10.5 10^3/uL (4.0-10.0)
== END ==
LOC: SKLAB3 07:00
PROVIDERS: ATTEND Internal Medicine
DX: I51.9 Heart disease, unspecified (principal); D64.9 Anemia, unspecified

== ENCOUNTER → 2022-12-21 | Outpatient (REF) | payer MEDICARE, OTHER ==
[2022-12-21 09:36] LABS: HEMATOCRIT 31.4 % (42.0-52.0); HEMOGLOBIN 10.8 g/dl (13.5-17.5); MEAN CORPUSCULAR HEMOGLOBIN 31.7 pg (27.0-33.0); MEAN CORPUSCULAR HGB CONC 34.4 g/dl (32.0-36.5); MEAN CORPUSCULAR VOLUME 92.1 fl (80.0-96.0); PLATELET COUNT, AUTOMATED 182 10^3/uL (150-450); RED BLOOD COUNT 3.41 10^6/uL (4.30-6.10); WHITE BLOOD COUNT 10.2 10^3/uL (4.0-10.0)
== END ==
LOC: SKLAB3 07:00
PROVIDERS: ATTEND Internal Medicine
DX: I51.9 Heart disease, unspecified (principal); D64.9 Anemia, unspecified

== ENCOUNTER → 2023-01-03 | Outpatient (REF) | payer MEDICARE, OTHER | LOC: SKLAB3 07:52 | PROVIDERS: ATTEND Internal Medicine | DX: Z53.8 Procedure and treatment not carried out for other reasons (principal) ==

== ENCOUNTER → 2023-01-04 | Outpatient (CLI) | payer MEDICARE, OTHER | LOC: M RAD 12:37 | PROVIDERS: ATTEND Physician Assistant Medical | DX: M79.89 Other specified soft tissue disorders (principal); M79.661 Pain in right lower leg; I70.201 Unspecified atherosclerosis of native arteries of extremities, right leg ==

== ENCOUNTER → 2023-01-07 | Outpatient (REF) | payer OTHER ==
[2023-01-07 10:47] LABS: HEMATOCRIT 29.5 % (42.0-52.0); HEMOGLOBIN 9.9 g/dl (13.5-17.5); MEAN CORPUSCULAR HEMOGLOBIN 31.3 pg (27.0-33.0); MEAN CORPUSCULAR HGB CONC 33.6 g/dl (32.0-36.5); MEAN CORPUSCULAR VOLUME 93.4 fl (80.0-96.0); PLATELET COUNT, AUTOMATED 173 10^3/uL (150-450); RED BLOOD COUNT 3.16 10^6/uL (4.30-6.10); WHITE BLOOD COUNT 8.9 10^3/uL (4.0-10.0)
== END ==
LOC: SKLAB3 07:45
PROVIDERS: ATTEND Internal Medicine
DX: I51.9 Heart disease, unspecified (principal); D64.9 Anemia, unspecified

== ENCOUNTER → 2023-01-21 | Outpatient (REF) | payer BC, OTHER ==
[2023-01-21 08:06] LABS: HEMATOCRIT 28.9 % (42.0-52.0); HEMOGLOBIN 9.9 g/dl (13.5-17.5); MEAN CORPUSCULAR HEMOGLOBIN 31.8 pg (27.0-33.0); MEAN CORPUSCULAR HGB CONC 34.3 g/dl (32.0-36.5); MEAN CORPUSCULAR VOLUME 92.9 fl (80.0-96.0); PLATELET COUNT, AUTOMATED 196 10^3/uL (150-450); RED BLOOD COUNT 3.11 10^6/uL (4.30-6.10); WHITE BLOOD COUNT 8.9 10^3/uL (4.0-10.0)
== END ==
LOC: SKLAB3 11:50
PROVIDERS: ATTEND Internal Medicine
DX: I73.9 Peripheral vascular disease, unspecified (principal); I50.9 Heart failure, unspecified; N18.9 Chronic kidney disease, unspecified

== ENCOUNTER → 2023-02-04 | Outpatient (REF) | payer MEDICARE, BC ==
[2023-02-04 11:58] LABS: HEMATOCRIT 28.3 % (42.0-52.0); HEMOGLOBIN 9.6 g/dl (13.5-17.5); MEAN CORPUSCULAR HEMOGLOBIN 32.3 pg (27.0-33.0); MEAN CORPUSCULAR HGB CONC 33.9 g/dl (32.0-36.5); MEAN CORPUSCULAR VOLUME 95.3 fl (80.0-96.0); PLATELET COUNT, AUTOMATED 188 10^3/uL (150-450); RED BLOOD COUNT 2.97 10^6/uL (4.30-6.10); WHITE BLOOD COUNT 8.7 10^3/uL (4.0-10.0)
[2023-02-18 07:37] LABS: HEMOGLOBIN 10.1 g/dl (13.5-17.5); MEAN CORPUSCULAR HEMOGLOBIN 32.2 pg (27.0-33.0); MEAN CORPUSCULAR HGB CONC 34.8 g/dl (32.0-36.5); MEAN CORPUSCULAR VOLUME 92.4 fl (80.0-96.0); PLATELET COUNT, AUTOMATED 213 10^3/uL (150-450); RED BLOOD COUNT 3.14 10^6/uL (4.30-6.10); WHITE BLOOD COUNT 8.1 10^3/uL (4.0-10.0)
== END ==
LOC: SKLAB3 10:30
PROVIDERS: ATTEND Internal Medicine
DX: N18.9 Chronic kidney disease, unspecified (principal); D63.1 Anemia in chronic kidney disease; I50.9 Heart failure, unspecified

== ENCOUNTER → 2023-02-17 | Outpatient (REF) | payer MEDICARE, BC | LOC: SKLAB3 12:10 | PROVIDERS: ATTEND Internal Medicine | DX: R05.9 Cough, unspecified (principal); R09.89 Other specified symptoms and signs involving the circulatory and respiratory systems ==

== ENCOUNTER → 2023-02-18 | Outpatient (REF) | payer MEDICARE, BC | LOC: SKLAB3 06:37 | PROVIDERS: ATTEND Internal Medicine | DX: I50.9 Heart failure, unspecified (principal); D63.1 Anemia in chronic kidney disease; N18.9 Chronic kidney disease, unspecified; Z53.8 Procedure and treatment not carried out for other reasons ==

== ENCOUNTER → 2023-02-25 | Outpatient (REF) | payer MEDICARE, BC | LOC: SKLAB3 13:33 | PROVIDERS: ATTEND Internal Medicine | DX: R36.9 Urethral discharge, unspecified (principal); Z53.8 Procedure and treatment not carried out for other reasons ==

== ENCOUNTER → 2023-03-01 | Outpatient (REF) | payer OTHER ==
[2023-03-01 09:37] LABS: HEMOGLOBIN 11.4 g/dl (13.5-17.5); MEAN CORPUSCULAR HGB CONC 34.5 g/dl (32.0-36.5); MEAN CORPUSCULAR VOLUME 92.7 fl (80.0-96.0); PLATELET COUNT, AUTOMATED 195 10^3/uL (150-450); RED BLOOD COUNT 3.56 10^6/uL (4.30-6.10); WHITE BLOOD COUNT 11.2 10^3/uL (4.0-10.0)
== END ==
LOC: SKLAB3 07:19
PROVIDERS: ATTEND Internal Medicine
DX: D64.9 Anemia, unspecified (principal); N18.9 Chronic kidney disease, unspecified; I50.9 Heart failure, unspecified

== ENCOUNTER → 2023-03-02 | Outpatient (REF) | payer OTHER ==
[2023-03-02 15:17] LABS: AMORPHOUS SEDIMENT SMALL (NEGATIVE); APPEARANCE, URINE CLOUDY (CLEAR); BACTERIA, URINE AUTO 1+ (NEGATIVE); BILIRUBIN, URINE AUTO NEGATIVE (NEGATIVE); BLOOD, URINE BLOOD NEGATIVE (NEGATIVE); COLOR, URINE YELLOW (YELLOW); GLUCOSE, URINE (UA) AUTO 3+ mg/dL (NEGATIVE); KETONE, URINE AUTO NEGATIVE (NEGATIVE); LEUKOCYTE ESTERASE, URINE AUTO 3+ (NEGATIVE); MUCUS, URINE SMALL (NEGATIVE); NITRITE, URINE AUTO NEGATIVE (NEGATIVE); PROTEIN, URINE AUTO 1+ mg/dL (NEGATIVE); RBC, URINE AUTO 3 /HPF (0-3); SPECIFIC GRAVITY URINE AUTO 1.016 (1.002-1.035); SQUAMOUS EPITHELIAL CELL UR AU 1 /HPF (0-6); TRIPLE PHOSPHATE CRYSTALS LARGE; UROBILINOGEN, URINE AUTO 0.2 mg/dL (0.0-2.0); WBC, URINE AUTO 30 /HPF (0-3)
== END ==
LOC: SKLAB3 14:45
PROVIDERS: ATTEND Internal Medicine
DX: R36.9 Urethral discharge, unspecified (principal)

== ENCOUNTER → 2023-03-22 | Outpatient (REF) | payer OTHER ==
[2023-03-22 14:53] LABS: BASO % 0.2 % (0.0-1.0); EOS # 0.6 10^3/uL (0.0-0.5); EOS % 6.1 % (0.0-3.0); HEMATOCRIT 29.7 % (42.0-52.0); HEMOGLOBIN 10.8 g/dl (13.5-17.5); LYMPH # 2.1 10^3/uL (1.5-5.0); MEAN CORPUSCULAR HEMOGLOBIN 32.2 pg (27.0-33.0); MEAN CORPUSCULAR HGB CONC 36.4 g/dl (32.0-36.5); MEAN CORPUSCULAR VOLUME 88.7 fl (80.0-96.0); MONO # 0.7 10^3/uL (0.0-0.8); MONO % 7.1 % (2.0-8.0); NEUTROPHILS # 6.1 10^3/uL (1.5-8.5); NEUTROPHILS % 64.2 % (36.0-66.0); PLATELET COUNT, AUTOMATED 228 10^3/uL (150-450); RED BLOOD COUNT 3.35 10^6/uL (4.30-6.10); WHITE BLOOD COUNT 9.5 10^3/uL (4.0-10.0)
[2023-03-22 14:59] LABS: APPEARANCE, URINE HAZY (CLEAR); BACTERIA, URINE AUTO NEGATIVE (NEGATIVE); BILIRUBIN, URINE AUTO NEGATIVE (NEGATIVE); BLOOD, URINE BLOOD NEGATIVE (NEGATIVE); COLOR, URINE YELLOW (YELLOW); GLUCOSE, URINE (UA) AUTO 3+ mg/dL (NEGATIVE); KETONE, URINE AUTO NEGATIVE (NEGATIVE); LEUKOCYTE ESTERASE, URINE AUTO 3+ (NEGATIVE); MUCUS, URINE MODERATE (NEGATIVE); NITRITE, URINE AUTO NEGATIVE (NEGATIVE); PROTEIN, URINE AUTO NEGATIVE (NEGATIVE); RBC, URINE AUTO 1 /HPF (0-3); SPECIFIC GRAVITY URINE AUTO 1.017 (1.002-1.035); SQUAMOUS EPITHELIAL CELL UR AU 0 /HPF (0-6); UROBILINOGEN, URINE AUTO 0.2 mg/dL (0.0-2.0); WBC, URINE AUTO 24 /HPF (0-3)
[2023-03-22 15:17] LABS: URIC ACID 6.1 MG/DL (3.7-9.2)
[2023-03-22 15:28] LABS: ALBUMIN 3.7 G/DL (3.2-5.2); CREATININE FOR GFR 1.85 MG/DL (0.70-1.30); GLOMERULAR FILTRATION RATE 37.9 (>42); MAGNESIUM LEVEL 1.9 MG/DL (1.8-2.4); PHOSPHORUS LEVEL 4.3 MG/DL (2.4-5.1); POTASSIUM SERUM 4.9 MMOL/L (3.5-5.1)
== END ==
LOC: SKLAB3 14:06
PROVIDERS: ATTEND Internal Medicine
DX: N18.9 Chronic kidney disease, unspecified (principal); E11.22 Type 2 diabetes mellitus with diabetic chronic kidney disease

== ENCOUNTER → 2023-03-22 | Outpatient (REF) | payer MEDICARE, OTHER | LOC: SKLAB3 17:14 | PROVIDERS: ATTEND Internal Medicine | DX: E11.9 Type 2 diabetes mellitus without complications (principal) ==

== ENCOUNTER → 2023-03-24 | Outpatient (REF) | payer OTHER | LOC: SKLAB3 07:00 | PROVIDERS: ATTEND Internal Medicine | DX: R73.09 Other abnormal glucose (principal) ==

== ENCOUNTER → 2023-03-31 | Outpatient (REF) | payer OTHER ==
[2023-03-31 11:57] LABS: HEMATOCRIT 31.2 % (42.0-52.0); MEAN CORPUSCULAR HEMOGLOBIN 32.4 pg (27.0-33.0); MEAN CORPUSCULAR HGB CONC 35.3 g/dl (32.0-36.5); MEAN CORPUSCULAR VOLUME 91.8 fl (80.0-96.0); PLATELET COUNT, AUTOMATED 204 10^3/uL (150-450); WHITE BLOOD COUNT 9.6 10^3/uL (4.0-10.0)
== END ==
LOC: SKLAB3 07:49
PROVIDERS: ATTEND Internal Medicine
DX: D64.9 Anemia, unspecified (principal)

== ENCOUNTER → 2023-04-14 | Outpatient (REF) ==
[2023-04-14 11:08] LABS: HEMATOCRIT 28.6 % (42.0-52.0); HEMOGLOBIN 10.1 g/dl (13.5-17.5); MEAN CORPUSCULAR HEMOGLOBIN 32.7 pg (27.0-33.0); MEAN CORPUSCULAR HGB CONC 35.3 g/dl (32.0-36.5); MEAN CORPUSCULAR VOLUME 92.6 fl (80.0-96.0); PLATELET COUNT, AUTOMATED 174 10^3/uL (150-450); RED BLOOD COUNT 3.09 10^6/uL (4.30-6.10); WHITE BLOOD COUNT 10.2 10^3/uL (4.0-10.0)
== END ==
LOC: SKLAB3 09:45
PROVIDERS: ATTEND Internal Medicine
DX: Z79.899 Other long term (current) drug therapy (principal)

== ENCOUNTER → 2023-04-26 | Outpatient (REF) ==
[~2023-04-26] MED LIST changes: -MIRA1POW3 PO; +MIRA33506 PO
[2023-04-26 13:15] LABS: HEMATOCRIT 31.8 % (42.0-52.0); HEMOGLOBIN 10.9 g/dl (13.5-17.5); MEAN CORPUSCULAR HEMOGLOBIN 32.3 pg (27.0-33.0); MEAN CORPUSCULAR HGB CONC 34.3 g/dl (32.0-36.5); MEAN CORPUSCULAR VOLUME 94.4 fl (80.0-96.0); PLATELET COUNT, AUTOMATED 205 10^3/uL (150-450); RED BLOOD COUNT 3.37 10^6/uL (4.30-6.10); WHITE BLOOD COUNT 12.8 10^3/uL (4.0-10.0)
== END ==
LOC: SKLAB3 11:09
PROVIDERS: ATTEND Internal Medicine
DX: E11.9 Type 2 diabetes mellitus without complications (principal); Z12.5 Encounter for screening for malignant neoplasm of prostate

== ENCOUNTER → 2023-04-28 | Outpatient (REF) ==
[2023-04-28 12:58] LABS: BASO % 0.2 % (0.0-1.0); EOS # 0.3 10^3/uL (0.0-0.5); EOS % 2.1 % (0.0-3.0); HEMATOCRIT 29.7 % (42.0-52.0); HEMOGLOBIN 10.3 g/dl (13.5-17.5); LYMPH # 2.1 10^3/uL (1.5-5.0); MEAN CORPUSCULAR HEMOGLOBIN 32.9 pg (27.0-33.0); MEAN CORPUSCULAR HGB CONC 34.7 g/dl (32.0-36.5); MEAN CORPUSCULAR VOLUME 94.9 fl (80.0-96.0); MONO # 1.2 10^3/uL (0.0-0.8); MONO % 8.9 % (2.0-8.0); NEUTROPHILS # 9.5 10^3/uL (1.5-8.5); NEUTROPHILS % 72.3 % (36.0-66.0); PLATELET COUNT, AUTOMATED 195 10^3/uL (150-450); RED BLOOD COUNT 3.13 10^6/uL (4.30-6.10); WHITE BLOOD COUNT 13.2 10^3/uL (4.0-10.0)
[2023-04-28 13:32] LABS: ALBUMIN 3.8 G/DL (3.2-5.2); BILIRUBIN,TOTAL 0.9 MG/DL (0.3-1.2); CALCIUM LEVEL 9.3 MG/DL (8.3-10.6); CREATININE FOR GFR 2.07 MG/DL (0.70-1.30); GLOMERULAR FILTRATION RATE 33.2 (>42); POTASSIUM SERUM 4.4 MMOL/L (3.5-5.1); TOTAL PROTEIN 6.6 G/DL (5.7-8.2)
== END ==
LOC: SKLAB3 12:20
PROVIDERS: ATTEND Internal Medicine
DX: R53.1 Weakness (principal)

== ENCOUNTER → 2023-05-11 | Outpatient (REF) | payer OTHER ==
[2023-05-11 08:14] LABS: HEMATOCRIT 29.8 % (42.0-52.0); HEMOGLOBIN 10.4 g/dl (13.5-17.5); MEAN CORPUSCULAR HEMOGLOBIN 32.5 pg (27.0-33.0); MEAN CORPUSCULAR HGB CONC 34.9 g/dl (32.0-36.5); MEAN CORPUSCULAR VOLUME 93.1 fl (80.0-96.0); PLATELET COUNT, AUTOMATED 199 10^3/uL (150-450); WHITE BLOOD COUNT 11.5 10^3/uL (4.0-10.0)
== END ==
LOC: SKLAB3 05-10 13:30
PROVIDERS: ATTEND Internal Medicine
DX: D64.9 Anemia, unspecified (principal)

== ENCOUNTER → 2023-05-24 | Outpatient (REF) | payer SELFPAY ==
[2023-05-24 10:06] LABS: CALCIUM LEVEL 9.7 MG/DL (8.3-10.6); CREATININE FOR GFR 1.83 MG/DL (0.70-1.30); GLOMERULAR FILTRATION RATE 38.3 (>42); POTASSIUM SERUM 4.3 MMOL/L (3.5-5.1)
== END ==
LOC: SKLAB3 10:30
PROVIDERS: ATTEND Nurse Practitioner Family
DX: E11.9 Type 2 diabetes mellitus without complications (principal)

== ENCOUNTER → 2023-05-25 | Outpatient (REF) | payer SELFPAY ==
[2023-05-25 11:55] LABS: HEMATOCRIT 34.7 % (42.0-52.0); HEMOGLOBIN 11.6 g/dl (13.5-17.5); MEAN CORPUSCULAR HEMOGLOBIN 31.7 pg (27.0-33.0); MEAN CORPUSCULAR HGB CONC 33.4 g/dl (32.0-36.5); MEAN CORPUSCULAR VOLUME 94.8 fl (80.0-96.0); PLATELET COUNT, AUTOMATED 208 10^3/uL (150-450); RED BLOOD COUNT 3.66 10^6/uL (4.30-6.10); WHITE BLOOD COUNT 10.4 10^3/uL (4.0-10.0)
== END ==
LOC: SKLAB3 09:22
PROVIDERS: ATTEND Nurse Practitioner Family
DX: N18.9 Chronic kidney disease, unspecified (principal); D63.1 Anemia in chronic kidney disease

== ENCOUNTER → 2023-06-05 | Outpatient (CLI) | payer OTHER ==
[2023-06-05 16:59] LABS: HEMOGLOBIN 10.8 g/dl (13.5-17.5); MEAN CORPUSCULAR HEMOGLOBIN 32.6 pg (27.0-33.0); MEAN CORPUSCULAR VOLUME 93.7 fl (80.0-96.0); RED BLOOD COUNT 3.31 10^6/uL (4.30-6.10); WHITE BLOOD COUNT 12.3 10^3/uL (4.0-10.0)
[2023-06-05 17:00] LABS: MEAN CORPUSCULAR HGB CONC 34.8 g/dl (32.0-36.5); PLATELET COUNT, AUTOMATED 201 10^3/uL (150-450)
[2023-06-05 17:20] LABS: CALCIUM LEVEL 9.2 MG/DL (8.3-10.6); CREATININE FOR GFR 1.92 MG/DL (0.70-1.30); GLOMERULAR FILTRATION RATE 36.2 (>42); POTASSIUM SERUM 4.2 MMOL/L (3.5-5.1)
== END ==
LOC: SKLAB3 15:30
PROVIDERS: ATTEND Internal Medicine
DX: U07.1 COVID-19 (principal); Z79.899 Other long term (current) drug therapy

== ENCOUNTER → 2023-06-08 | Outpatient (REF) | payer SELFPAY ==
[2023-06-08 08:42] LABS: HEMATOCRIT 31.8 % (42.0-52.0); HEMOGLOBIN 10.7 g/dl (13.5-17.5); MEAN CORPUSCULAR HEMOGLOBIN 32.2 pg (27.0-33.0); MEAN CORPUSCULAR HGB CONC 33.6 g/dl (32.0-36.5); MEAN CORPUSCULAR VOLUME 95.8 fl (80.0-96.0); PLATELET COUNT, AUTOMATED 210 10^3/uL (150-450); RED BLOOD COUNT 3.32 10^6/uL (4.30-6.10); WHITE BLOOD COUNT 10.1 10^3/uL (4.0-10.0)
== END ==
LOC: SKLAB3 07:00
PROVIDERS: ATTEND Nurse Practitioner Family
DX: N18.9 Chronic kidney disease, unspecified (principal); D63.1 Anemia in chronic kidney disease

== ENCOUNTER → 2023-06-22 | Outpatient (REF) | payer OTHER ==
[2023-06-22 12:41] LABS: HEMATOCRIT 32.3 % (42.0-52.0); HEMOGLOBIN 10.9 g/dl (13.5-17.5); MEAN CORPUSCULAR HGB CONC 33.7 g/dl (32.0-36.5); MEAN CORPUSCULAR VOLUME 94.7 fl (80.0-96.0); PLATELET COUNT, AUTOMATED 210 10^3/uL (150-450); RED BLOOD COUNT 3.41 10^6/uL (4.30-6.10); WHITE BLOOD COUNT 12.3 10^3/uL (4.0-10.0)
== END ==
LOC: SKLAB3 07:00
PROVIDERS: ATTEND Nurse Practitioner Family
DX: I50.9 Heart failure, unspecified (principal)

== ENCOUNTER → 2023-06-29 | Outpatient (REF) | payer SELFPAY ==
[2023-06-29 10:04] LABS: HEMOGLOBIN A1c 6.2 % (4.0-6.0)
== END ==
LOC: SKLAB3 07:00
PROVIDERS: ATTEND Nurse Practitioner Family
DX: E11.9 Type 2 diabetes mellitus without complications (principal)

== ENCOUNTER → 2023-07-06 | Outpatient (REF) | payer OTHER ==
[2023-07-06 09:33] LABS: HEMATOCRIT 33.3 % (42.0-52.0); HEMOGLOBIN 11.1 g/dl (13.5-17.5); MEAN CORPUSCULAR HEMOGLOBIN 31.8 pg (27.0-33.0); MEAN CORPUSCULAR HGB CONC 33.3 g/dl (32.0-36.5); MEAN CORPUSCULAR VOLUME 95.4 fl (80.0-96.0); PLATELET COUNT, AUTOMATED 198 10^3/uL (150-450); RED BLOOD COUNT 3.49 10^6/uL (4.30-6.10); WHITE BLOOD COUNT 14.2 10^3/uL (4.0-10.0)
== END ==
LOC: SKLAB3 07:00
PROVIDERS: ATTEND Nurse Practitioner Family
DX: N18.9 Chronic kidney disease, unspecified (principal); D63.1 Anemia in chronic kidney disease

== ENCOUNTER → 2023-07-20 | Outpatient (REF) | payer OTHER ==
[2023-07-20 07:28] LABS: HEMATOCRIT 29.9 % (42.0-52.0); HEMOGLOBIN 10.3 g/dl (13.5-17.5); MEAN CORPUSCULAR HEMOGLOBIN 32.5 pg (27.0-33.0); MEAN CORPUSCULAR HGB CONC 34.4 g/dl (32.0-36.5); MEAN CORPUSCULAR VOLUME 94.3 fl (80.0-96.0); PLATELET COUNT, AUTOMATED 235 10^3/uL (150-450); RED BLOOD COUNT 3.17 10^6/uL (4.30-6.10)
== END ==
LOC: SKLAB3 07:00
PROVIDERS: ATTEND Nurse Practitioner Family
DX: D64.9 Anemia, unspecified (principal)

== ENCOUNTER → 2023-07-21 | Outpatient (REF) | payer OTHER ==
[2023-07-21 15:20] LABS: BASO # 0.1 10^3/uL (0.0-0.2); BASO % 0.4 % (0.0-1.0); EOS # 0.4 10^3/uL (0.0-0.5); HEMATOCRIT 30.2 % (42.0-52.0); HEMOGLOBIN 10.4 g/dl (13.5-17.5); LYMPH # 2.3 10^3/uL (1.5-5.0); LYMPH % 15.9 % (24.0-44.0); MEAN CORPUSCULAR HEMOGLOBIN 32.5 pg (27.0-33.0); MEAN CORPUSCULAR HGB CONC 34.4 g/dl (32.0-36.5); MEAN CORPUSCULAR VOLUME 94.4 fl (80.0-96.0); MONO # 1.1 10^3/uL (0.0-0.8); MONO % 7.4 % (2.0-8.0); NEUTROPHILS # 10.3 10^3/uL (1.5-8.5); NEUTROPHILS % 72.7 % (36.0-66.0); PLATELET COUNT, AUTOMATED 227 10^3/uL (150-450); WHITE BLOOD COUNT 14.2 10^3/uL (4.0-10.0)
[2023-07-21 15:43] LABS: ALBUMIN 3.6 G/DL (3.2-5.2); CALCIUM LEVEL 9.2 MG/DL (8.3-10.6); CREATININE FOR GFR 2.02 MG/DL (0.70-1.30); GLOMERULAR FILTRATION RATE 34.2 (>42); MAGNESIUM LEVEL 1.9 MG/DL (1.8-2.4); PHOSPHORUS LEVEL 4.4 MG/DL (2.4-5.1); POTASSIUM SERUM 4.8 MMOL/L (3.5-5.1)
== END ==
LOC: SKLAB3 14:44
PROVIDERS: ATTEND Internal Medicine
DX: N18.30 Chronic kidney disease, stage 3 unspecified (principal); Z79.899 Other long term (current) drug therapy

== ENCOUNTER → 2023-07-22 | Outpatient (REF) | payer SELFPAY | LOC: SKLAB3 11:12 | PROVIDERS: ATTEND Internal Medicine | DX: R05.9 Cough, unspecified (principal) ==

== ENCOUNTER → 2023-07-22 | Outpatient (REF) | LOC: SKLAB3 07-21 21:56 | PROVIDERS: ATTEND Internal Medicine | DX: R05.9 Cough, unspecified (principal) ==

== ENCOUNTER → 2023-08-03 | Outpatient (REF) | payer OTHER ==
[2023-08-03 07:07] LABS: HEMATOCRIT 32.9 % (42.0-52.0); HEMOGLOBIN 11.2 g/dl (13.5-17.5); MEAN CORPUSCULAR HEMOGLOBIN 31.6 pg (27.0-33.0); MEAN CORPUSCULAR VOLUME 92.9 fl (80.0-96.0); PLATELET COUNT, AUTOMATED 301 10^3/uL (150-450); RED BLOOD COUNT 3.54 10^6/uL (4.30-6.10); WHITE BLOOD COUNT 11.2 10^3/uL (4.0-10.0)
== END ==
LOC: SKLAB3 07:00
PROVIDERS: ATTEND Nurse Practitioner Family
DX: D64.9 Anemia, unspecified (principal)

== ENCOUNTER → 2023-08-18 | Outpatient (REF) ==
[2023-08-18 14:01] LABS: HEMATOCRIT 31.7 % (42.0-52.0); HEMOGLOBIN 10.8 g/dl (13.5-17.5); MEAN CORPUSCULAR HEMOGLOBIN 31.9 pg (27.0-33.0); MEAN CORPUSCULAR HGB CONC 34.1 g/dl (32.0-36.5); MEAN CORPUSCULAR VOLUME 93.5 fl (80.0-96.0); PLATELET COUNT, AUTOMATED 216 10^3/uL (150-450); RED BLOOD COUNT 3.39 10^6/uL (4.30-6.10); WHITE BLOOD COUNT 9.7 10^3/uL (4.0-10.0)
== END ==
LOC: SKLAB3 10:03
PROVIDERS: ATTEND Internal Medicine
DX: E11.9 Type 2 diabetes mellitus without complications (principal)

== ENCOUNTER → 2023-08-31 | Outpatient (REF) | LOC: SKLAB3 14:51 | PROVIDERS: ATTEND Internal Medicine | DX: Z53.8 Procedure and treatment not carried out for other reasons (principal) ==

== ENCOUNTER → 2023-09-14 | Outpatient (REF) ==
[2023-09-14 17:50] LABS: HEMATOCRIT 33.4 % (42.0-52.0); HEMOGLOBIN 11.5 g/dl (13.5-17.5); MEAN CORPUSCULAR HEMOGLOBIN 32.4 pg (27.0-33.0); MEAN CORPUSCULAR HGB CONC 34.4 g/dl (32.0-36.5); MEAN CORPUSCULAR VOLUME 94.1 fl (80.0-96.0); PLATELET COUNT, AUTOMATED 210 10^3/uL (150-450); RED BLOOD COUNT 3.55 10^6/uL (4.30-6.10)
== END ==
LOC: SKLAB3 13:09
PROVIDERS: ATTEND Internal Medicine
DX: D64.9 Anemia, unspecified (principal)

== ENCOUNTER → 2023-09-28 | Outpatient (REF) | payer MEDICARE, OTHER ==
[2023-09-28 21:02] LABS: BASO % 0.2 % (0.0-1.0); EOS % 0.4 % (0.0-3.0); HEMATOCRIT 32.9 % (42.0-52.0); HEMOGLOBIN 11.4 g/dl (13.5-17.5); LYMPH # 1.4 10^3/uL (1.5-5.0); LYMPH % 13.9 % (24.0-44.0); MEAN CORPUSCULAR HEMOGLOBIN 32.4 pg (27.0-33.0); MEAN CORPUSCULAR HGB CONC 34.7 g/dl (32.0-36.5); MEAN CORPUSCULAR VOLUME 93.5 fl (80.0-96.0); MONO # 0.9 10^3/uL (0.0-0.8); MONO % 9.2 % (2.0-8.0); NEUTROPHILS # 7.6 10^3/uL (1.5-8.5); NEUTROPHILS % 75.9 % (36.0-66.0); PLATELET COUNT, AUTOMATED 217 10^3/uL (150-450); RED BLOOD COUNT 3.52 10^6/uL (4.30-6.10)
[2023-09-28 21:22] LABS: ALBUMIN 3.8 G/DL (3.2-5.2); BILIRUBIN,TOTAL 1.1 MG/DL (0.3-1.2); CALCIUM LEVEL 9.7 MG/DL (8.3-10.6); CREATININE FOR GFR 1.95 MG/DL (0.70-1.30); GLOMERULAR FILTRATION RATE 35.6 (>42); POTASSIUM SERUM 4.9 MMOL/L (3.5-5.1); TOTAL PROTEIN 6.8 G/DL (5.7-8.2)
[2023-09-28 21:24] LABS: THYROID STIMULATING HORMONE 1.69 uIU/ML (0.55-4.78)
== END ==
LOC: SKLAB3 20:29
PROVIDERS: ATTEND Internal Medicine
DX: R53.83 Other fatigue (principal); E03.9 Hypothyroidism, unspecified

== ENCOUNTER → 2023-09-29 | Outpatient (REF) ==
[2023-09-29 15:12] LABS: MEAN CORPUSCULAR HEMOGLOBIN 32.4 pg (27.0-33.0); MEAN CORPUSCULAR HGB CONC 34.4 g/dl (32.0-36.5); MEAN CORPUSCULAR VOLUME 94.1 fl (80.0-96.0); PLATELET COUNT, AUTOMATED 212 10^3/uL (150-450); WHITE BLOOD COUNT 11.7 10^3/uL (4.0-10.0)
== END ==
LOC: SKLAB3 13:59
PROVIDERS: ATTEND Internal Medicine
DX: D64.9 Anemia, unspecified (principal)

== ENCOUNTER → 2023-09-30 | Outpatient (REF) ==
[2023-09-30 18:41] LABS: APPEARANCE, URINE HAZY (CLEAR); BACTERIA, URINE AUTO 1+ (NEGATIVE); BILIRUBIN, URINE AUTO NEGATIVE (NEGATIVE); BLOOD, URINE BLOOD 1+ (NEGATIVE); COLOR, URINE YELLOW (YELLOW); GLUCOSE, URINE (UA) AUTO 2+ mg/dL (NEGATIVE); KETONE, URINE AUTO NEGATIVE (NEGATIVE); LEUKOCYTE ESTERASE, URINE AUTO 3+ (NEGATIVE); MUCUS, URINE SMALL (NEGATIVE); NITRITE, URINE AUTO POSITIVE (NEGATIVE); PROTEIN, URINE AUTO 2+ mg/dL (NEGATIVE); RBC, URINE AUTO 10 /HPF (0-3); SPECIFIC GRAVITY URINE AUTO 1.017 (1.002-1.035); SQUAMOUS EPITHELIAL CELL UR AU 0 /HPF (0-6); UROBILINOGEN, URINE AUTO 0.2 mg/dL (0.0-2.0); WBC, URINE AUTO 139 /HPF (0-3)
== END ==
LOC: SKLAB3 14:03
PROVIDERS: ATTEND Internal Medicine
DX: R30.0 Dysuria (principal); D72.829 Elevated white blood cell count, unspecified

== ENCOUNTER → 2023-10-13 | Outpatient (REF) ==
[2023-10-13 17:12] LABS: HEMATOCRIT 32.8 % (42.0-52.0); HEMOGLOBIN 11.4 g/dl (13.5-17.5); MEAN CORPUSCULAR HEMOGLOBIN 32.2 pg (27.0-33.0); MEAN CORPUSCULAR HGB CONC 34.8 g/dl (32.0-36.5); MEAN CORPUSCULAR VOLUME 92.7 fl (80.0-96.0); PLATELET COUNT, AUTOMATED 230 10^3/uL (150-450); RED BLOOD COUNT 3.54 10^6/uL (4.30-6.10); WHITE BLOOD COUNT 10.9 10^3/uL (4.0-10.0)
== END ==
LOC: SKLAB3 14:42
PROVIDERS: ATTEND Internal Medicine
DX: D64.9 Anemia, unspecified (principal)

== ENCOUNTER → 2023-10-20 | Outpatient (CLI) | payer MEDICARE, OTHER | LOC: M PAIN 13:00 | PROVIDERS: ATTEND Nurse Practitioner Family | DX: M47.816 Spondylosis without myelopathy or radiculopathy, lumbar region (principal); M48.02 Spinal stenosis, cervical region; G89.29 Other chronic pain; N52.9 Male erectile dysfunction, unspecified; E11.9 Type 2 diabetes mellitus without complications; E78.5 Hyperlipidemia, unspecified; Z87.891 Personal history of nicotine dependence; Z79.02 Long term (current) use of antithrombotics/antiplatelets; Z79.84 Long term (current) use of oral hypoglycemic drugs; Z79.899 Other long term (current) drug therapy; Z88.8 Allergy status to other drugs, medicaments and biological substances ==

== ENCOUNTER → 2023-11-09 | Outpatient (REF) | payer MEDICARE ==
[2023-11-09 14:08] LABS: HEMATOCRIT 34.3 % (42.0-52.0); HEMOGLOBIN 11.6 g/dl (13.5-17.5); MEAN CORPUSCULAR HEMOGLOBIN 32.3 pg (27.0-33.0); MEAN CORPUSCULAR HGB CONC 33.8 g/dl (32.0-36.5); MEAN CORPUSCULAR VOLUME 95.5 fl (80.0-96.0); PLATELET COUNT, AUTOMATED 253 10^3/uL (150-450); RED BLOOD COUNT 3.59 10^6/uL (4.30-6.10); WHITE BLOOD COUNT 10.9 10^3/uL (4.0-10.0)
== END ==
LOC: SKLAB3 13:18
PROVIDERS: ATTEND Internal Medicine
DX: D64.9 Anemia, unspecified (principal)

== ENCOUNTER → 2023-11-10 | Outpatient (CLI) | payer MEDICARE, BC | LOC: M RAD 12:40 | PROVIDERS: ATTEND Nurse Practitioner Family | DX: M47.816 Spondylosis without myelopathy or radiculopathy, lumbar region (principal); M48.02 Spinal stenosis, cervical region; M50.321 Other cervical disc degeneration at C4-C5 level; M50.322 Other cervical disc degeneration at C5-C6 level; M51.27 Other intervertebral disc displacement, lumbosacral region; M51.26 Other intervertebral disc displacement, lumbar region ==

== ENCOUNTER → 2023-11-22 | Outpatient (REF) | payer MEDICARE, BC, OTHER ==
[2023-11-22 16:33] LABS: CALCIUM LEVEL 9.7 MG/DL (8.3-10.6); CREATININE FOR GFR 1.66 MG/DL (0.70-1.30); GLOMERULAR FILTRATION RATE 42.9 (>42); POTASSIUM SERUM 4.6 MMOL/L (3.5-5.1)
== END ==
LOC: SKLAB3 07:00
PROVIDERS: ATTEND Internal Medicine
DX: I10 Essential (primary) hypertension (principal)

== ENCOUNTER → 2023-12-07 | Outpatient (REF) | payer MEDICARE, BC, OTHER ==
[~2023-12-07] MED LIST changes: +GABA-1172 PO; -GABA-282 PO
[2023-12-07 09:37] LABS: HEMATOCRIT 36.7 % (42.0-52.0); HEMOGLOBIN 12.1 g/dl (13.5-17.5); MEAN CORPUSCULAR HEMOGLOBIN 31.3 pg (27.0-33.0); MEAN CORPUSCULAR VOLUME 94.8 fl (80.0-96.0); PLATELET COUNT, AUTOMATED 225 10^3/uL (150-450); RED BLOOD COUNT 3.87 10^6/uL (4.30-6.10); WHITE BLOOD COUNT 11.8 10^3/uL (4.0-10.0)
== END ==
LOC: SKLAB3 07:00
PROVIDERS: ATTEND Internal Medicine
DX: D64.9 Anemia, unspecified (principal)

== ENCOUNTER → 2023-12-15 | Outpatient (CLI) | payer BC, MEDICARE, OTHER | LOC: M PAIN 14:30 | PROVIDERS: ATTEND Nurse Practitioner Family | DX: M79.2 Neuralgia and neuritis, unspecified (principal); M50.30 Other cervical disc degeneration, unspecified cervical region; M79.18 Myalgia, other site; M51.16 Intervertebral disc disorders with radiculopathy, lumbar region; G89.29 Other chronic pain; M21.371 Foot drop, right foot; E11.22 Type 2 diabetes mellitus with diabetic chronic kidney disease; E78.5 Hyperlipidemia, unspecified; N18.30 Chronic kidney disease, stage 3 unspecified; R33.9 Retention of urine, unspecified; Z87.891 Personal history of nicotine dependence; Z79.890 Hormone replacement therapy; Z79.02 Long term (current) use of antithrombotics/antiplatelets; Z79.84 Long term (current) use of oral hypoglycemic drugs; Z79.899 Other long term (current) drug therapy; Z88.8 Allergy status to other drugs, medicaments and biological substances ==

== ENCOUNTER → 2023-12-21 | Outpatient (REF) | payer MEDICARE ==
[2023-12-21 10:51] LABS: HEMOGLOBIN 11.5 g/dl (13.5-17.5); MEAN CORPUSCULAR HEMOGLOBIN 32.5 pg (27.0-33.0); MEAN CORPUSCULAR HGB CONC 34.8 g/dl (32.0-36.5); MEAN CORPUSCULAR VOLUME 93.2 fl (80.0-96.0); PLATELET COUNT, AUTOMATED 201 10^3/uL (150-450); RED BLOOD COUNT 3.54 10^6/uL (4.30-6.10); WHITE BLOOD COUNT 13.7 10^3/uL (4.0-10.0)
== END ==
LOC: SKLAB3 07:14
PROVIDERS: ATTEND Internal Medicine
DX: D64.9 Anemia, unspecified (principal); D72.829 Elevated white blood cell count, unspecified

== ENCOUNTER → 2023-12-21 | Outpatient (REF) | payer MEDICARE ==
[2023-12-21 18:00] LABS: APPEARANCE, URINE CLOUDY (CLEAR); BACTERIA, URINE AUTO 1+ (NEGATIVE); BILIRUBIN, URINE AUTO NEGATIVE (NEGATIVE); BLOOD, URINE BLOOD 3+ (NEGATIVE); COLOR, URINE AMBER (YELLOW); GLUCOSE, URINE (UA) AUTO NEGATIVE (NEGATIVE); KETONE, URINE AUTO NEGATIVE (NEGATIVE); LEUKOCYTE ESTERASE, URINE AUTO 3+ (NEGATIVE); MUCUS, URINE SMALL (NEGATIVE); NITRITE, URINE AUTO POSITIVE (NEGATIVE); PROTEIN, URINE AUTO 2+ mg/dL (NEGATIVE); RBC, URINE AUTO 3 /HPF (0-3); SPECIFIC GRAVITY URINE AUTO 1.015 (1.002-1.035); SQUAMOUS EPITHELIAL CELL UR AU 1 /HPF (0-6); UROBILINOGEN, URINE AUTO 0.2 mg/dL (0.0-2.0); WBC, URINE AUTO 18 /HPF (0-3)
== END ==
LOC: SKLAB3 12:41
PROVIDERS: ATTEND Internal Medicine
DX: D72.829 Elevated white blood cell count, unspecified (principal)

== ENCOUNTER → 2023-12-29 | Outpatient (REF) | payer MEDICARE, BC ==
[2023-12-29 09:31] LABS: HEMOGLOBIN A1c 9.3 % (4.0-6.0)
== END ==
LOC: SKLAB3 07:00
PROVIDERS: ATTEND Internal Medicine
DX: E11.9 Type 2 diabetes mellitus without complications (principal)

== ENCOUNTER → 2024-01-18 | Outpatient (REF) | payer MEDICARE, BC ==
[~2024-01-18] MED LIST changes: -LACT10SO3 PO; +LACT10SO94 PO
[2024-01-18 16:04] LABS: HEMATOCRIT 31.9 % (42.0-52.0); MEAN CORPUSCULAR HEMOGLOBIN 32.4 pg (27.0-33.0); MEAN CORPUSCULAR HGB CONC 34.5 g/dl (32.0-36.5); MEAN CORPUSCULAR VOLUME 93.8 fl (80.0-96.0); PLATELET COUNT, AUTOMATED 217 10^3/uL (150-450); WHITE BLOOD COUNT 9.7 10^3/uL (4.0-10.0)
== END ==
LOC: SKLAB3 14:15
PROVIDERS: ATTEND Internal Medicine
DX: D64.9 Anemia, unspecified (principal)

== ENCOUNTER → 2024-02-01 | Outpatient (REF) | payer MEDICARE, BC ==
[2024-02-01 09:03] LABS: HEMATOCRIT 36.7 % (42.0-52.0); HEMOGLOBIN 12.8 g/dl (13.5-17.5); MEAN CORPUSCULAR HEMOGLOBIN 32.4 pg (27.0-33.0); MEAN CORPUSCULAR HGB CONC 34.9 g/dl (32.0-36.5); MEAN CORPUSCULAR VOLUME 92.9 fl (80.0-96.0); PLATELET COUNT, AUTOMATED 316 10^3/uL (150-450); RED BLOOD COUNT 3.95 10^6/uL (4.30-6.10); WHITE BLOOD COUNT 11.9 10^3/uL (4.0-10.0)
== END ==
LOC: SKLAB3 07:34
PROVIDERS: ATTEND Internal Medicine
DX: D64.9 Anemia, unspecified (principal)

== ENCOUNTER → 2024-02-14 | Outpatient (CLI) | payer MEDICARE, BC ==
[~2024-02-14] MED LIST changes: +LIDOCAINE 1% SDV 30ML VIAL As Ordered ONE; +dexAMETHasone 10MG/1ML VIAL PRES.FREE As Ordered ONE
== END ==
LOC: M PAIN 12:45
PROVIDERS: ATTEND Anesthesiology
DX: G58.8 Other specified mononeuropathies (principal); G89.29 Other chronic pain; E11.22 Type 2 diabetes mellitus with diabetic chronic kidney disease; N18.30 Chronic kidney disease, stage 3 unspecified; E78.5 Hyperlipidemia, unspecified; Z88.8 Allergy status to other drugs, medicaments and biological substances; Z87.891 Personal history of nicotine dependence; Z79.4 Long term (current) use of insulin; Z79.890 Hormone replacement therapy; Z79.82 Long term (current) use of aspirin; Z79.899 Other long term (current) drug therapy; M79.631 Pain in right forearm; Z96.652 Presence of left artificial knee joint
CPT/HCPCS: 64450; J0665; J1100

== ENCOUNTER → 2024-02-15 | Outpatient (REF) | payer MEDICARE, BC ==
[~2024-02-15] MED LIST changes: -LIDOCAINE 1% SDV 30ML VIAL As Ordered ONE; -dexAMETHasone 10MG/1ML VIAL PRES.FREE As Ordered ONE
[2024-02-15 18:45] LABS: HEMATOCRIT 31.7 % (42.0-52.0); HEMOGLOBIN 11.1 g/dl (13.5-17.5); MEAN CORPUSCULAR VOLUME 94.3 fl (80.0-96.0); PLATELET COUNT, AUTOMATED 254 10^3/uL (150-450); RED BLOOD COUNT 3.36 10^6/uL (4.30-6.10); WHITE BLOOD COUNT 17.7 10^3/uL (4.0-10.0)
== END ==
LOC: SKLAB3 09:06
PROVIDERS: ATTEND Internal Medicine
DX: D64.9 Anemia, unspecified (principal)

== ENCOUNTER → 2024-02-21 | Outpatient (REF) | payer MEDICARE, BC ==
[2024-02-21 09:55] LABS: CALCIUM LEVEL 9.6 MG/DL (8.3-10.6); CREATININE FOR GFR 1.79 MG/DL (0.70-1.30); GLOMERULAR FILTRATION RATE 39.3 (>42); POTASSIUM SERUM 4.7 MMOL/L (3.5-5.1)
== END ==
LOC: SKLAB3 07:00
PROVIDERS: ATTEND Internal Medicine
DX: E11.9 Type 2 diabetes mellitus without complications (principal)

== ENCOUNTER → 2024-02-28 | Outpatient (CLI) | payer MEDICARE, BC | LOC: M PAIN 12:45 | PROVIDERS: ATTEND Anesthesiology | DX: G56.81 Other specified mononeuropathies of right upper limb (principal); G89.29 Other chronic pain; E11.22 Type 2 diabetes mellitus with diabetic chronic kidney disease; E78.5 Hyperlipidemia, unspecified; N18.30 Chronic kidney disease, stage 3 unspecified; R33.9 Retention of urine, unspecified; Z87.891 Personal history of nicotine dependence; Z79.4 Long term (current) use of insulin; Z79.890 Hormone replacement therapy; Z79.899 Other long term (current) drug therapy; Z88.8 Allergy status to other drugs, medicaments and biological substances ==

== ENCOUNTER → 2024-03-01 | Outpatient (REF) | payer MEDICARE, BC ==
[2024-03-01 06:40] LABS: HEMATOCRIT 33.3 % (42.0-52.0); HEMOGLOBIN 11.3 g/dl (13.5-17.5); MEAN CORPUSCULAR HEMOGLOBIN 32.4 pg (27.0-33.0); MEAN CORPUSCULAR HGB CONC 33.9 g/dl (32.0-36.5); MEAN CORPUSCULAR VOLUME 95.4 fl (80.0-96.0); PLATELET COUNT, AUTOMATED 209 10^3/uL (150-450); RED BLOOD COUNT 3.49 10^6/uL (4.30-6.10); WHITE BLOOD COUNT 12.7 10^3/uL (4.0-10.0)
== END ==
LOC: SKLAB3 06:04
PROVIDERS: ATTEND Internal Medicine
DX: D64.9 Anemia, unspecified (principal)

== ENCOUNTER → 2024-03-14 | Outpatient (REF) | payer MEDICARE, BC ==
[2024-03-14 12:19] LABS: HEMATOCRIT 36.1 % (42.0-52.0); HEMOGLOBIN 12.4 g/dl (13.5-17.5); MEAN CORPUSCULAR HGB CONC 34.3 g/dl (32.0-36.5); MEAN CORPUSCULAR VOLUME 93.3 fl (80.0-96.0); PLATELET COUNT, AUTOMATED 292 10^3/uL (150-450); RED BLOOD COUNT 3.87 10^6/uL (4.30-6.10); WHITE BLOOD COUNT 12.3 10^3/uL (4.0-10.0)
== END ==
LOC: SKLAB3 07:02
PROVIDERS: ATTEND Internal Medicine
DX: D64.9 Anemia, unspecified (principal)

== ENCOUNTER → 2024-03-27 | Outpatient (REF) | payer MEDICARE, BC ==
[2024-03-27 11:23] LABS: HEMATOCRIT 35.6 % (42.0-52.0); MEAN CORPUSCULAR HEMOGLOBIN 31.6 pg (27.0-33.0); MEAN CORPUSCULAR HGB CONC 33.7 g/dl (32.0-36.5); MEAN CORPUSCULAR VOLUME 93.7 fl (80.0-96.0); PLATELET COUNT, AUTOMATED 245 10^3/uL (150-450); WHITE BLOOD COUNT 11.1 10^3/uL (4.0-10.0)
[2024-03-27 11:51] LABS: ALBUMIN 3.8 G/DL (3.2-5.2); CALCIUM LEVEL 9.2 MG/DL (8.3-10.6); CREATININE FOR GFR 1.77 MG/DL (0.70-1.30); GLOMERULAR FILTRATION RATE 39.8 (>42); PHOSPHORUS LEVEL 4.3 MG/DL (2.4-5.1); POTASSIUM SERUM 4.6 MMOL/L (3.5-5.1)
== END ==
LOC: SKLAB3 09:14
PROVIDERS: ATTEND Internal Medicine
DX: N18.9 Chronic kidney disease, unspecified (principal); E83.42 Hypomagnesemia

== ENCOUNTER → 2024-04-04 | Outpatient (REF) | payer MEDICARE, BC | LOC: SKLAB3 09:23 | PROVIDERS: ATTEND Internal Medicine | DX: Z53.9 Procedure and treatment not carried out, unspecified reason (principal) ==

== ENCOUNTER → 2024-04-10 | Outpatient (REF) | payer MEDICARE, BC ==
[2024-04-10 15:06] LABS: HEMOGLOBIN A1c 7.7 % (4.0-6.0)
== END ==
LOC: SKLAB3 13:33
PROVIDERS: ATTEND Internal Medicine
DX: E11.9 Type 2 diabetes mellitus without complications (principal)

== ENCOUNTER → 2024-04-11 | Outpatient (REF) | payer MEDICARE, BC ==
[2024-04-11 10:52] LABS: HEMATOCRIT 35.8 % (42.0-52.0); MEAN CORPUSCULAR HEMOGLOBIN 32.3 pg (27.0-33.0); MEAN CORPUSCULAR HGB CONC 33.5 g/dl (32.0-36.5); MEAN CORPUSCULAR VOLUME 96.2 fl (80.0-96.0); PLATELET COUNT, AUTOMATED 227 10^3/uL (150-450); RED BLOOD COUNT 3.72 10^6/uL (4.30-6.10); WHITE BLOOD COUNT 11.7 10^3/uL (4.0-10.0)
== END ==
LOC: SKLAB3 07:46
PROVIDERS: ATTEND Internal Medicine
DX: D64.9 Anemia, unspecified (principal)

== ENCOUNTER → 2024-04-12 | Outpatient (REF) | payer MEDICARE, BC ==
[2024-04-12 14:18] LABS: KETONE, URINE AUTO RFX NEGATIVE (NEGATIVE); RBC, URINE AUTO RFX 19 /HPF (0-3); SQUAM EPITHELIAL CELL UR AURFX 0 /HPF (0-6)
[2024-04-12 14:29] LABS: LEUKOCYTE ESTERASE UR AUTO RFX 3+ (NEGATIVE); NITRITE, URINE AUTO RFX POSITIVE (NEGATIVE); WBC, URINE AUTO RFX TNTC /HPF (0-3)
== END ==
LOC: SKLAB3 13:12
PROVIDERS: ATTEND Internal Medicine
DX: R30.0 Dysuria (principal)

== ENCOUNTER → 2024-04-25 | Outpatient (REF) | payer MEDICARE, BC ==
[2024-04-25 09:37] LABS: HEMATOCRIT 39.8 % (42.0-52.0); HEMOGLOBIN 13.6 g/dl (13.5-17.5); MEAN CORPUSCULAR HEMOGLOBIN 32.3 pg (27.0-33.0); MEAN CORPUSCULAR HGB CONC 34.2 g/dl (32.0-36.5); MEAN CORPUSCULAR VOLUME 94.5 fl (80.0-96.0); PLATELET COUNT, AUTOMATED 257 10^3/uL (150-450); RED BLOOD COUNT 4.21 10^6/uL (4.30-6.10); WHITE BLOOD COUNT 13.8 10^3/uL (4.0-10.0)
== END ==
LOC: SKLAB3 07:54
PROVIDERS: ATTEND Internal Medicine
DX: N18.9 Chronic kidney disease, unspecified (principal)

== ENCOUNTER → 2024-04-26 | Outpatient (REF) | payer MEDICARE, BC ==
[2024-04-26 09:21] LABS: HEMATOCRIT 36.5 % (42.0-52.0); HEMOGLOBIN 12.4 g/dl (13.5-17.5); MEAN CORPUSCULAR VOLUME 94.1 fl (80.0-96.0); PLATELET COUNT, AUTOMATED 241 10^3/uL (150-450); RED BLOOD COUNT 3.88 10^6/uL (4.30-6.10); WHITE BLOOD COUNT 12.8 10^3/uL (4.0-10.0)
[2024-04-26 09:27] LABS: ERYTHROCYTE SEDIMENTATION RATE 28 mm/hr (0-20)
[2024-04-26 09:44] LABS: C REACTIVE PROTEIN QUANTITATIV < 0.50 MG/DL (<1.0)
[2024-04-26 09:45] LABS: ALBUMIN 3.6 G/DL (3.2-5.2); ALKALINE PHOSPHATASE 85 U/L (40-129); ALT/SGPT 29 U/L (7.0-40); AST/SGOT 14 U/L (<34); BILIRUBIN,TOTAL 0.7 MG/DL (0.3-1.2); BLOOD UREA NITROGEN 32 MG/DL (9-23); CALCIUM LEVEL 9.2 MG/DL (8.3-10.6); CARBON DIOXIDE LEVEL 27 MMOL/L (20-31); CHLORIDE LEVEL 107 MMOL/L (98-107); CREATININE FOR GFR 1.86 MG/DL (0.70-1.30); GLOMERULAR FILTRATION RATE 37.5 (>42); GLUCOSE, FASTING 119 MG/DL (74-106); POTASSIUM SERUM 4.3 MMOL/L (3.5-5.1); SODIUM LEVEL 143 MMOL/L (136-145); TOTAL PROTEIN 6.6 G/DL (5.7-8.2)
== END ==
LOC: SKLAB3 07:00
PROVIDERS: ATTEND Internal Medicine
DX: D72.829 Elevated white blood cell count, unspecified (principal)

== ENCOUNTER → 2024-05-09 | Outpatient (REF) | payer MEDICARE, BC ==
[2024-05-09 07:41] LABS: HEMATOCRIT 37.7 % (42.0-52.0); HEMOGLOBIN 12.8 g/dl (13.5-17.5); MEAN CORPUSCULAR HEMOGLOBIN 32.1 pg (27.0-33.0); MEAN CORPUSCULAR VOLUME 94.5 fl (80.0-96.0); PLATELET COUNT, AUTOMATED 247 10^3/uL (150-450); RED BLOOD COUNT 3.99 10^6/uL (4.30-6.10); WHITE BLOOD COUNT 10.3 10^3/uL (4.0-10.0)
== END ==
LOC: SKLAB3 07:00
PROVIDERS: ATTEND Internal Medicine
DX: D64.9 Anemia, unspecified (principal)

== ENCOUNTER → 2024-05-22 | Outpatient (REF) | payer MEDICARE, BC ==
[2024-05-22 08:05] LABS: CALCIUM LEVEL 9.3 MG/DL (8.3-10.6); CREATININE FOR GFR 1.72 MG/DL (0.70-1.30); POTASSIUM SERUM 4.5 MMOL/L (3.5-5.1)
== END ==
LOC: SKLAB3 07:00
PROVIDERS: ATTEND Internal Medicine
DX: I10 Essential (primary) hypertension (principal)

== ENCOUNTER → 2024-05-23 | Outpatient (REF) | payer MEDICARE, BC ==
[2024-05-23 07:09] LABS: HEMATOCRIT 36.2 % (42.0-52.0); HEMOGLOBIN 12.2 g/dl (13.5-17.5); MEAN CORPUSCULAR HGB CONC 33.7 g/dl (32.0-36.5); PLATELET COUNT, AUTOMATED 216 10^3/uL (150-450); RED BLOOD COUNT 3.81 10^6/uL (4.30-6.10); WHITE BLOOD COUNT 11.6 10^3/uL (4.0-10.0)
== END ==
LOC: SKLAB3 07:00
PROVIDERS: ATTEND Internal Medicine
DX: Z79.899 Other long term (current) drug therapy (principal)

== ENCOUNTER → 2024-06-06 | Outpatient (REF) | payer MEDICARE, BC ==
[2024-06-06 07:33] LABS: HEMATOCRIT 38.3 % (42.0-52.0); HEMOGLOBIN 13.3 g/dl (13.5-17.5); MEAN CORPUSCULAR HEMOGLOBIN 32.4 pg (27.0-33.0); MEAN CORPUSCULAR HGB CONC 34.7 g/dl (32.0-36.5); MEAN CORPUSCULAR VOLUME 93.2 fl (80.0-96.0); PLATELET COUNT, AUTOMATED 292 10^3/uL (150-450); RED BLOOD COUNT 4.11 10^6/uL (4.30-6.10); WHITE BLOOD COUNT 12.2 10^3/uL (4.0-10.0)
== END ==
LOC: SKLAB3 07:00
PROVIDERS: ATTEND Internal Medicine
DX: I10 Essential (primary) hypertension (principal)

== ENCOUNTER → 2024-06-11 | Outpatient (REF) | payer MEDICARE, BC ==
[2024-06-11 12:56] LABS: KETONE, URINE AUTO RFX NEGATIVE (NEGATIVE); RBC, URINE AUTO RFX 19 /HPF (0-3); SQUAM EPITHELIAL CELL UR AURFX 0 /HPF (0-6)
[2024-06-11 13:14] LABS: LEUKOCYTE ESTERASE UR AUTO RFX 3+ (NEGATIVE); NITRITE, URINE AUTO RFX POSITIVE (NEGATIVE); WBC, URINE AUTO RFX TNTC /HPF (0-3)
[2024-06-11 13:22] LABS: BASO % 0.2 % (0.0-1.0); EOS # 0.3 10^3/uL (0.0-0.5); EOS % 2.6 % (0.0-3.0); HEMATOCRIT 35.4 % (42.0-52.0); HEMOGLOBIN 12.5 g/dl (13.5-17.5); LYMPH # 2.7 10^3/uL (1.5-5.0); LYMPH % 21.7 % (24.0-44.0); MEAN CORPUSCULAR HEMOGLOBIN 33.4 pg (27.0-33.0); MEAN CORPUSCULAR HGB CONC 35.3 g/dl (32.0-36.5); MEAN CORPUSCULAR VOLUME 94.7 fl (80.0-96.0); MONO # 0.7 10^3/uL (0.0-0.8); MONO % 5.4 % (2.0-8.0); NEUTROPHILS # 8.6 10^3/uL (1.5-8.5); NEUTROPHILS % 69.7 % (36.0-66.0); PLATELET COUNT, AUTOMATED 243 10^3/uL (150-450); RED BLOOD COUNT 3.74 10^6/uL (4.30-6.10); WHITE BLOOD COUNT 12.3 10^3/uL (4.0-10.0)
[2024-06-11 13:24] LABS: CREATININE FOR GFR 1.76 MG/DL (0.70-1.30); GLOMERULAR FILTRATION RATE 38.9 (>42); POTASSIUM SERUM 4.6 MMOL/L (3.5-5.1)
== END ==
LOC: SKLAB3 11:23
PROVIDERS: ATTEND Internal Medicine
DX: D72.829 Elevated white blood cell count, unspecified (principal); R10.9 Unspecified abdominal pain

== ENCOUNTER → 2024-06-20 | Outpatient (REF) | payer MEDICARE, BC ==
[~2024-06-20] MED LIST changes: -FLOM0.4C39 PO; +TAMS-18 PO
[2024-06-20 06:26] LABS: HEMATOCRIT 36.1 % (42.0-52.0); HEMOGLOBIN 12.2 g/dl (13.5-17.5); MEAN CORPUSCULAR HGB CONC 33.8 g/dl (32.0-36.5); MEAN CORPUSCULAR VOLUME 94.8 fl (80.0-96.0); PLATELET COUNT, AUTOMATED 237 10^3/uL (150-450); RED BLOOD COUNT 3.81 10^6/uL (4.30-6.10); WHITE BLOOD COUNT 10.7 10^3/uL (4.0-10.0)
== END ==
LOC: SKLAB3 07:00
PROVIDERS: ATTEND Internal Medicine
DX: Z79.899 Other long term (current) drug therapy (principal)

== ENCOUNTER → 2024-07-18 | Outpatient (REF) | payer MEDICARE, BC ==
[2024-07-18 09:09] LABS: HEMATOCRIT 39.5 % (42.0-52.0); HEMOGLOBIN 13.4 g/dl (13.5-17.5); MEAN CORPUSCULAR HEMOGLOBIN 32.4 pg (27.0-33.0); MEAN CORPUSCULAR HGB CONC 33.9 g/dl (32.0-36.5); MEAN CORPUSCULAR VOLUME 95.4 fl (80.0-96.0); PLATELET COUNT, AUTOMATED 244 10^3/uL (150-450); RED BLOOD COUNT 4.14 10^6/uL (4.30-6.10); WHITE BLOOD COUNT 12.1 10^3/uL (4.0-10.0)
== END ==
LOC: SKLAB3 08:32
PROVIDERS: ATTEND Internal Medicine
DX: D64.9 Anemia, unspecified (principal)

== ENCOUNTER → 2024-08-28 | Outpatient (REF) | payer MEDICARE, BC ==
[~2024-08-28] MED LIST changes: +ACET650T15 PO; +AMLO2.5T3 PO; +AMOX875T PO; +CEFD1CAP9 PO; +CVS1CAP2 PO; +DULO30CA9 PO; +GLUC1VIA14 IM; +INSULADS SC; +KETO120S5 TOP; +KETO2CR TOP; +LIDO1PAD TOP; +MAGN400T35 PO; +TRUL10IN SC; +VITA1CAP25 PO
[2024-08-28 08:54] LABS: CALCIUM LEVEL 9.8 MG/DL (8.3-10.6); CREATININE FOR GFR 1.84 MG/DL (0.70-1.30); GLOMERULAR FILTRATION RATE 36.8 (>42); POTASSIUM SERUM 4.2 MMOL/L (3.5-5.1)
[2024-08-28 08:57] LABS: THYROID STIMULATING HORMONE 2.062 uIU/ML (0.55-4.78)
== END ==
LOC: SKLAB3 07:00
PROVIDERS: ATTEND Internal Medicine
DX: E03.9 Hypothyroidism, unspecified (principal)

== ENCOUNTER → 2024-08-29 | Outpatient (REF) | payer MEDICARE, BC ==
[2024-08-29 07:54] LABS: HEMATOCRIT 36.4 % (42.0-52.0); HEMOGLOBIN 12.4 g/dl (13.5-17.5); MEAN CORPUSCULAR HEMOGLOBIN 32.5 pg (27.0-33.0); MEAN CORPUSCULAR HGB CONC 34.1 g/dl (32.0-36.5); MEAN CORPUSCULAR VOLUME 95.5 fl (80.0-96.0); PLATELET COUNT, AUTOMATED 233 10^3/uL (150-450); RED BLOOD COUNT 3.81 10^6/uL (4.30-6.10); WHITE BLOOD COUNT 11.3 10^3/uL (4.0-10.0)
== END ==
LOC: SKLAB3 07:00
PROVIDERS: ATTEND Internal Medicine
DX: Z79.899 Other long term (current) drug therapy (principal)

== ENCOUNTER 2024-09-03 15:29 | Observation (INO) | payer MEDICARE, BC ==
[~2024-09-03] VITALS: Ht 180.3 cm; Wt 114.3 kg
[2024-09-03] MEDS: SENNA 8.6 MG TAB PO SCH
[~2024-09-03 15:29] MED LIST changes: -ACET650T15 PO; -AMLO2.5T3 PO; -AMOX875T PO; -CEFD1CAP9 PO; -CVS1CAP2 PO; -DULO30CA9 PO; -EZET10TA21 PO; +EZET10TA57 PO; -GLUC1VIA14 IM; -INSULADS SC; -KETO120S5 TOP; -KETO2CR TOP; -LIDO1PAD TOP; -MAGN400T35 PO; -TRUL10IN SC; -VITA1CAP25 PO
[2024-09-03 17:04] LABS: KETONE, URINE AUTO RFX NEGATIVE (NEGATIVE); MUCUS, URINE RFX SMALL (NEGATIVE); RBC, URINE AUTO RFX 9 /HPF (0-3); SQUAM EPITHELIAL CELL UR AURFX 0 /HPF (0-6)
[2024-09-03 17:06] LABS: LEUKOCYTE ESTERASE UR AUTO RFX 3+ (NEGATIVE); NITRITE, URINE AUTO RFX POSITIVE (NEGATIVE); WBC, URINE AUTO RFX 180 /HPF (0-3)
[2024-09-03] MEDS: cefTRIAXone SOD 1 GM in DEXTROSE 5% (D5W) ADV/MINI-BAG 50 ML IV ONE (17:47)
[2024-09-03] MEDS ORDERED: GLUC1VIA14 IM (17:53)
[2024-09-03] MEDS ORDERED: KETO120S5 TOP (18:30)
[2024-09-03] MEDS ORDERED: KETO2CR TOP (18:30)
[2024-09-03] MEDS ORDERED: INSULADS SC (18:33)
[2024-09-03] MEDS ORDERED: TRUL10IN SC (18:44)
[2024-09-03] MEDS: NS (Normal Saline) 0.9% 1,000 ML IV SCH ×2 (18:45)
[2024-09-03] MEDS ORDERED: HOME MED LIST COMPLETE! XX SCH (18:45)
[2024-09-03] MEDS ORDERED: GLUCOSE 4 GM CHEW PO PRN (20:30)
[2024-09-03] MEDS ORDERED: DEXTROSE 50% 50 ML SYRINGE IV PRN (20:30)
[2024-09-03] MEDS ORDERED: GLUCAGON INJ 1 MG VIAL SC PRN (20:30)
[2024-09-03 23:35] VITALS: BP 137/60; TEMP 98.1; O2SAT 95
[2024-09-03] MEDS: INSULIN LISPRO (NovoLOG) PER UNIT SC SCH (23:59)
[2024-09-03] MEDS: LanTUS (INSULIN GLARGINE INJ) 1 UNITS/0.01 ML SC SCH (23:59)
[2024-09-04] MEDS: ATORVASTATIN 20 MG TAB PO SCH
[2024-09-04] MEDS: GABAPENTIN 300 MG CAP PO SCH (00:01)
[2024-09-04] MEDS: MEMANTINE 5 MG TABLET PO SCH (00:01)
[2024-09-04 04:10] VITALS: BP 132/62; TEMP 97.7; O2SAT 96
[2024-09-04] MEDS ORDERED: cefTRIAXone SOD 2 GM in DEXTROSE 5% (D5W) ADV/MINI-BAG 50 ML IV SCH (06:00)
[2024-09-04] MEDS: cefTRIAXone SOD 2 GM in DEXTROSE 5% (D5W) ADV/MINI-BAG 50 ML IV SCH (06:21)
[2024-09-04] MEDS: LEVOTHYROXINE 25 MCG TABLET (0.025MG) PO SCH (06:21)
[2024-09-04] MEDS: LACTULOSE 20 GM/30 ML SYRUP UDC PO SCH (07:38)
[2024-09-04] MEDS: MIRALAX *UNIT DOSE* 17 GM PACKET PO SCH (07:38)
[2024-09-04 08:45] LABS: BASO # 0.1 10^3/uL (0.0-0.2); BASO % 0.3 % (0.0-1.0); EOS # 0.3 10^3/uL (0.0-0.5); EOS % 2.2 % (0.0-3.0); LYMPH # 2.6 10^3/uL (1.5-5.0); LYMPH % 17.0 % (24.0-44.0); MONO # 1.1 10^3/uL (0.0-0.8); MONO % 7.4 % (2.0-8.0); NEUTROPHILS # 11.0 10^3/uL (1.5-8.5); NEUTROPHILS % 72.5 % (36.0-66.0); PLATELET COUNT, AUTOMATED 221 10^3/uL (150-450)
[2024-09-04] MEDS: ENOXAPARIN 40 MG/0.4 ML SYRINGE (J1650 PER 10MG) SC SCH (09:00)
[2024-09-04 09:53] LABS: ALT/SGPT 18 U/L (7.0-40); AST/SGOT 14 U/L (<34); CALCIUM LEVEL 8.8 MG/DL (8.3-10.6); CARBON DIOXIDE LEVEL 25 MMOL/L (20-31); CHLORIDE LEVEL 103 MMOL/L (98-107); CREATININE FOR GFR 1.71 MG/DL (0.70-1.30); GLOMERULAR FILTRATION RATE 40.2 (>42); POTASSIUM SERUM 4.1 MMOL/L (3.5-5.1); SODIUM LEVEL 141 MMOL/L (136-145); VITAMIN B12 LEVEL 353 PG/ML (211-911)
[2024-09-04] MEDS: INSULIN LISPRO (NovoLOG) PER UNIT SC SCH (09:56)
[2024-09-04 09:57] VITALS: BP 132/60
[2024-09-04] MEDS: METOPROLOL SUCC. 25 MG *XL* TAB PO SCH (09:57)
[2024-09-04] MEDS: ASPIRIN 81 MG ENTERIC TABLET PO SCH (09:57)
[2024-09-04] MEDS: EZETIMIBE 10 MG TABLET PO SCH (09:58)
[2024-09-04] MEDS: MAGNESIUM OXIDE 400 MG TAB PO SCH (09:58)
[2024-09-04] MEDS: FOLIC ACID 1 MG TAB PO SCH (09:58)
[2024-09-04] MEDS: DONEPEZIL 5 MG TAB PO SCH (09:58)
[2024-09-04] MEDS: CLOPIDOGREL 75 MG TAB PO SCH (09:58)
[2024-09-04] MEDS: FERROUS GLUCONATE 324 MG TAB PO SCH (09:58)
[2024-09-04] MEDS: AMOXICILLIN 875 MG TAB PO SCH (11:27)
[2024-09-04] MEDS ORDERED: CEFD1CAP9 PO (12:00)
[2024-09-04] MEDS ORDERED: CVS1CAP2 PO (12:00)
[2024-09-04] MEDS ORDERED: AMOX875T PO (12:00)
[2024-09-05] MEDS ORDERED: TORSEMIDE 10 MG TABLET PO SCH (09:00)
[2024-09-06] MEDS ORDERED: KETOCONAZOLE 2% CREAM TOP SCH (09:00)
[2024-09-17] MEDS ORDERED: ACET-1515 PO (19:04)
== END 2024-09-04 13:30 ==
LOC: M ED 15:29 → EDBD 15:29 → INTOOBSV 20:26 → M ED INP 20:26 → M MSPAV 23:28
PROVIDERS: ADMIT Student in an Organized Health Care Education/Training Program; ATTEND Internal Medicine
DX: N39.0 Urinary tract infection, site not specified (principal); F03.90 Unspecified dementia, unspecified severity, without behavioral disturbance, psychotic disturbance, mood disturbance, and anxiety; E11.9 Type 2 diabetes mellitus without complications; E78.5 Hyperlipidemia, unspecified; I12.9 Hypertensive chronic kidney disease with stage 1 through stage 4 chronic kidney disease, or unspecified chronic kidney disease; N18.30 Chronic kidney disease, stage 3 unspecified; G47.33 Obstructive sleep apnea (adult) (pediatric); D64.9 Anemia, unspecified; E03.9 Hypothyroidism, unspecified; Z79.2 Long term (current) use of antibiotics; Z79.4 Long term (current) use of insulin; Z79.82 Long term (current) use of aspirin; Z79.899 Other long term (current) drug therapy; Z79.02 Long term (current) use of antithrombotics/antiplatelets; Z86.73 Personal history of transient ischemic attack (TIA), and cerebral infarction without residual deficits
CPT/HCPCS: 36415; 70450; 71045; 80053; 81001; 82140; 82607; 82746; 83605; 84145; 84443; 85025; 86140; 87040; 87088; 87186; 87426; 87486; 87581; 87633; 87798; 93005; 96361; 96365; 96366; 99285; G0378; J0696; J1815

== ENCOUNTER → 2024-09-11 | Outpatient (REF) | payer BC, MEDICARE, OTHER ==
[~2024-09-11] MED LIST changes: +ACET650T15 PO; +AMLO2.5T3 PO; +AMOX875T PO; +CEFD1CAP9 PO; +CIPR250T3 PO; +CVS1CAP2 PO; +DULO30CA9 PO; +EZET10TA21 PO; -EZET10TA57 PO; +GLUC1VIA14 IM; +INSULADS SC; +KETO120S5 TOP; +KETO2CR TOP; +LIDO1PAD TOP; +MAGN400T35 PO; +PROBCAP14 PO; +TRUL10IN SC; +VITA1CAP25 PO
== END ==
LOC: M RAD 13:41 → EDSTATUS 14:00
PROVIDERS: ATTEND Nurse Practitioner Family
DX: I70.213 Atherosclerosis of native arteries of extremities with intermittent claudication, bilateral legs (principal)

== ENCOUNTER → 2024-09-12 | Outpatient (REF) | payer MEDICARE, BC ==
[~2024-09-12] MED LIST changes: -CIPR250T3 PO; -PROBCAP14 PO
[2024-09-12 07:51] LABS: CALCIUM LEVEL 9.6 MG/DL (8.3-10.6); CARBON DIOXIDE LEVEL 28.0 MMOL/L (20-31); CHLORIDE LEVEL 105.0 MMOL/L (98-107); CREATININE FOR GFR 1.61 MG/DL (0.70-1.30); GLOMERULAR FILTRATION RATE 43.2 (>42); POTASSIUM SERUM 4.6 MMOL/L (3.5-5.1); SODIUM LEVEL 143.0 MMOL/L (136-145)
== END ==
LOC: SKLAB3 07:00
PROVIDERS: ATTEND Internal Medicine
DX: Z79.899 Other long term (current) drug therapy (principal)

== ENCOUNTER 2024-09-17 14:56 | Inpatient (IN) | payer OTHER, MEDICARE, BC ==
[~2024-09-17] VITALS: Ht 180.3 cm; Wt 100.0 kg
[~2024-09-17 14:56] MED LIST changes: -ACET-1515 PO; -AMLO2.5T3 PO; -CIPR250T3 PO; -DULO30CA9 PO; -LIDO1PAD TOP; -MAGN400T35 PO; -PROBCAP14 PO; -VITA1CAP25 PO
[2024-09-17 16:14] LABS: BASO # 0.1 10^3/uL (0.0-0.2); BASO % 0.2 % (0.0-1.0); EOS # 0.2 10^3/uL (0.0-0.5); EOS % 0.7 % (0.0-3.0); LYMPH # 2.7 10^3/uL (1.5-5.0); LYMPH % 12.4 % (24.0-44.0); MONO # 1.5 10^3/uL (0.0-0.8); MONO % 6.7 % (2.0-8.0); NEUTROPHILS # 17.2 10^3/uL (1.5-8.5); NEUTROPHILS % 79.6 % (36.0-66.0); PLATELET COUNT, AUTOMATED 262 10^3/uL (150-450)
[2024-09-17 16:46] LABS: ALT/SGPT 23.0 U/L (7.0-40); AST/SGOT 17.0 U/L (<34); CALCIUM LEVEL 9.3 MG/DL (8.3-10.6); CARBON DIOXIDE LEVEL 26.0 MMOL/L (20-31); CHLORIDE LEVEL 102.0 MMOL/L (98-107); CREATININE FOR GFR 2.16 MG/DL (0.70-1.30); GLOMERULAR FILTRATION RATE 30.4 (>42); POTASSIUM SERUM 4.7 MMOL/L (3.5-5.1); SODIUM LEVEL 141.0 MMOL/L (136-145)
[2024-09-17 17:50] LABS: APPEARANCE, URINE CLOUDY (CLEAR); BACTERIA, URINE AUTO 1+ (NEGATIVE); BILIRUBIN, URINE AUTO NEGATIVE (NEGATIVE); BLOOD, URINE BLOOD 2+ (NEGATIVE); GLUCOSE, URINE (UA) AUTO NEGATIVE (NEGATIVE); KETONE, URINE AUTO NEGATIVE (NEGATIVE); LEUKOCYTE ESTERASE, URINE AUTO 3+ (NEGATIVE); MUCUS, URINE SMALL (NEGATIVE); NITRITE, URINE AUTO POSITIVE (NEGATIVE); PROTEIN, URINE AUTO 2+ mg/dL (NEGATIVE); RBC, URINE AUTO 23 /HPF (0-3); SPECIFIC GRAVITY URINE AUTO 1.019 (1.002-1.035); SQUAMOUS EPITHELIAL CELL UR AU 0 /HPF (0-6); UROBILINOGEN, URINE AUTO 0.2 mg/dL (0.0-2.0); WBC, URINE AUTO TNTC /HPF (0-3)
[2024-09-17] MEDS: NS (Normal Saline) 0.9% 1,000 ML IV SCH (18:38)
[2024-09-17] MEDS: cefTRIAXone SOD 1 GM in DEXTROSE 5% (D5W) ADV/MINI-BAG 50 ML IV ONE (18:38)
[2024-09-17] MEDS ORDERED: ACET650T15 PO (19:04)
[2024-09-17] MEDS ORDERED: VITA1CAP25 PO (19:04)
[2024-09-17] MEDS ORDERED: MAGN400T35 PO (19:04)
[2024-09-17] MEDS ORDERED: DULO30CA9 PO (19:04)
[2024-09-17] MEDS ORDERED: CLOP75TA2 PO (19:04)
[2024-09-17] MEDS ORDERED: LIDO1PAD TOP (19:04)
[2024-09-17] MEDS ORDERED: AMLO2.5T3 PO (19:04)
[2024-09-17] MEDS ORDERED: ARIC1TAB PO (19:04)
[2024-09-17] MEDS ORDERED: MEMA1TAB3 PO (19:04)
[2024-09-17] MEDS ORDERED: HOME MED LIST COMPLETE! XX SCH (19:05)
[2024-09-17] MEDS ORDERED: MAALOX 30 ML SUSP *UDC PO PRN (22:15)
[2024-09-17] MEDS ORDERED: MOM 30 ML SUSPENSION UDC PO PRN (22:15)
[2024-09-17] MEDS ORDERED: GLUCOSE 4 GM CHEW PO PRN (22:15)
[2024-09-17] MEDS ORDERED: GLUCAGON INJ 1 MG VIAL SC PRN (22:15)
[2024-09-17] MEDS ORDERED: DEXTROSE 50% 50 ML SYRINGE IV PRN (22:15)
[2024-09-18] MEDS: ACETAMINOPHEN 325 MG TAB PO PRN (03:12)
[2024-09-18] MEDS: LEVOTHYROXINE 25 MCG TABLET (0.025MG) PO SCH (06:05)
[2024-09-18 06:24] LABS: PLATELET COUNT, AUTOMATED 207 10^3/uL (150-450)
[2024-09-18 06:54] LABS: CALCIUM LEVEL 8.6 MG/DL (8.3-10.6); CARBON DIOXIDE LEVEL 22.0 MMOL/L (20-31); CHLORIDE LEVEL 107.0 MMOL/L (98-107); CREATININE FOR GFR 2.01 MG/DL (0.70-1.30); GLOMERULAR FILTRATION RATE 33.1 (>42); MAGNESIUM LEVEL 1.9 MG/DL (1.8-2.4); POTASSIUM SERUM 4.7 MMOL/L (3.5-5.1); SODIUM LEVEL 142.0 MMOL/L (136-145)
[2024-09-18] MEDS: LACTULOSE 20 GM/30 ML SYRUP UDC PO SCH (09:25)
[2024-09-18] MEDS: cefTRIAXone SOD 1 GM in DEXTROSE 5% (D5W) ADV/MINI-BAG 50 ML IV SCH (09:25)
[2024-09-18] MEDS: DOCUSATE SODIUM 100 MG CAPSULE PO SCH (09:26)
[2024-09-18] MEDS: CLOPIDOGREL 75 MG TAB PO SCH (09:26)
[2024-09-18] MEDS: DONEPEZIL 5 MG TAB PO SCH (09:27)
[2024-09-18] MEDS: ASPIRIN 81 MG ENTERIC TABLET PO SCH (09:27)
[2024-09-18] MEDS: FOLIC ACID 1 MG TAB PO SCH (09:27)
[2024-09-18] MEDS: FERROUS GLUCONATE 324 MG TAB PO SCH (09:27)
[2024-09-18] MEDS: MEMANTINE 5 MG TABLET PO SCH (09:28)
[2024-09-18] MEDS: INSULIN LISPRO (NovoLOG) PER UNIT SC SCH ×2 (09:28→21:00)
[2024-09-18] MEDS: MIRALAX *UNIT DOSE* 17 GM PACKET PO SCH (09:29)
[2024-09-18] MEDS: EZETIMIBE 10 MG TABLET PO SCH (09:29)
[2024-09-18] MEDS: GABAPENTIN 300 MG CAP PO SCH (09:30)
[2024-09-18] MEDS: METOPROLOL SUCC. 25 MG *XL* TAB PO SCH (09:32)
[2024-09-18] MEDS: HEPARIN SOD 5000 UNITS/ML 1 ML VIAL/SYRINGE SC SCH (09:41)
[2024-09-18 11:27] LABS: C REACTIVE PROTEIN QUANTITATIV 9.87 MG/DL (<1.0)
[2024-09-18] MEDS: CEFEPIME HCL 2 GM in DEXTROSE 5% (D5W) ADV/MINI-BAG 50 ML IV SCH (13:02)
[2024-09-18] MEDS ORDERED: IPRATROPIUM 0.5 MG/ALBUTEROL 2.5 MG INH SOL UD 3 ML NEB PRN (15:55)
[2024-09-18 15:58] VITALS: BP 126/61; TEMP 99.5; O2SAT 93
[2024-09-18 19:54] VITALS: BP 134/62; TEMP 99.7; O2SAT 95
[2024-09-18] MEDS: ATORVASTATIN 20 MG TAB PO SCH (21:49)
[2024-09-18] MEDS: SENNA 8.6 MG TAB PO SCH (21:49)
[2024-09-18] MEDS: LanTUS (INSULIN GLARGINE INJ) 1 UNITS/0.01 ML SC SCH (21:49)
[2024-09-19 03:57] VITALS: BP 137/64; TEMP 97.3; O2SAT 95
[2024-09-19 07:50] LABS: BASO # 0.0 10^3/uL (0.0-0.2); BASO % 0.2 % (0.0-1.0); EOS # 0.2 10^3/uL (0.0-0.5); EOS % 1.1 % (0.0-3.0); LYMPH # 1.7 10^3/uL (1.5-5.0); LYMPH % 12.6 % (24.0-44.0); MONO # 1.2 10^3/uL (0.0-0.8); MONO % 8.6 % (2.0-8.0); NEUTROPHILS # 10.3 10^3/uL (1.5-8.5); NEUTROPHILS % 77.1 % (36.0-66.0); PLATELET COUNT, AUTOMATED 189 10^3/uL (150-450)
[2024-09-19 08:16] LABS: CALCIUM LEVEL 8.6 MG/DL (8.3-10.6); CARBON DIOXIDE LEVEL 23.0 MMOL/L (20-31); CHLORIDE LEVEL 108.0 MMOL/L (98-107); CREATININE FOR GFR 1.94 MG/DL (0.70-1.30); GLOMERULAR FILTRATION RATE 34.6 (>42); MAGNESIUM LEVEL 2.0 MG/DL (1.8-2.4); POTASSIUM SERUM 4.3 MMOL/L (3.5-5.1); SODIUM LEVEL 144.0 MMOL/L (136-145)
[2024-09-19 12:00] VITALS: BP 122/70; TEMP 98; O2SAT 96
[2024-09-19 12:14] VITALS: BP 106/54; TEMP 97.7; O2SAT 96
[2024-09-19 20:41] VITALS: BP 140/59; TEMP 98.2; O2SAT 95
[2024-09-20 04:12] VITALS: BP 139/59; TEMP 98.1; O2SAT 95
[2024-09-20 08:21] VITALS: BP 125/64
[2024-09-20 08:22] LABS: BASO # 0.0 10^3/uL (0.0-0.2); BASO % 0.4 % (0.0-1.0); EOS # 0.5 10^3/uL (0.0-0.5); EOS % 5.3 % (0.0-3.0); LYMPH # 1.7 10^3/uL (1.5-5.0); LYMPH % 17.3 % (24.0-44.0); MONO # 0.9 10^3/uL (0.0-0.8); MONO % 8.8 % (2.0-8.0); NEUTROPHILS # 6.5 10^3/uL (1.5-8.5); NEUTROPHILS % 67.9 % (36.0-66.0); PLATELET COUNT, AUTOMATED 237 10^3/uL (150-450)
[2024-09-20 08:23] LABS: CALCIUM LEVEL 8.9 MG/DL (8.3-10.6); CARBON DIOXIDE LEVEL 22.0 MMOL/L (20-31); CHLORIDE LEVEL 107.0 MMOL/L (98-107); CREATININE FOR GFR 1.51 MG/DL (0.70-1.30); GLOMERULAR FILTRATION RATE 46.7 (>42); POTASSIUM SERUM 4.0 MMOL/L (3.5-5.1); SODIUM LEVEL 144.0 MMOL/L (136-145)
[2024-09-20 12:03] VITALS: BP 132/65; TEMP 97; O2SAT 95
[2024-09-20 12:59] LABS: C REACTIVE PROTEIN QUANTITATIV 6.58 MG/DL (<1.0)
[2024-09-20 20:30] VITALS: BP 136/62; TEMP 97.9; O2SAT 96
[2024-09-21 06:20] VITALS: BP 133/60; TEMP 97.3; O2SAT 96
[2024-09-21] MEDS ORDERED: PROBCAP14 PO (07:24)
[2024-09-21] MEDS ORDERED: CIPR250T3 PO (07:24)
[2024-09-21 07:55] VITALS: BP 125/61
== END 2024-09-21 09:25 | DRG 698 ==
LOC: EDBD 14:56 → M ED 14:56 → M ED INP 14:57 → OBSVTOIN 09-18 10:52 → M MSPAV 09-18 15:39
PROVIDERS: ADMIT Student in an Organized Health Care Education/Training Program; ATTEND Internal Medicine
DX: T83.511A Infection and inflammatory reaction due to indwelling urethral catheter, initial encounter (principal); G93.41 Metabolic encephalopathy; A41.52 Sepsis due to Pseudomonas; N17.9 Acute kidney failure, unspecified; N39.0 Urinary tract infection, site not specified; N18.9 Chronic kidney disease, unspecified; E78.5 Hyperlipidemia, unspecified; E11.22 Type 2 diabetes mellitus with diabetic chronic kidney disease; F03.90 Unspecified dementia, unspecified severity, without behavioral disturbance, psychotic disturbance, mood disturbance, and anxiety; E11.51 Type 2 diabetes mellitus with diabetic peripheral angiopathy without gangrene; I12.9 Hypertensive chronic kidney disease with stage 1 through stage 4 chronic kidney disease, or unspecified chronic kidney disease; I73.9 Peripheral vascular disease, unspecified; I25.10 Atherosclerotic heart disease of native coronary artery without angina pectoris; F32.A Depression, unspecified; E03.9 Hypothyroidism, unspecified; E11.42 Type 2 diabetes mellitus with diabetic polyneuropathy; R33.9 Retention of urine, unspecified; Z95.2 Presence of prosthetic heart valve; Z96.653 Presence of artificial knee joint, bilateral; Z98.49 Cataract extraction status, unspecified eye; Z87.891 Personal history of nicotine dependence; Z79.4 Long term (current) use of insulin; Z79.82 Long term (current) use of aspirin; Z79.899 Other long term (current) drug therapy; Z88.8 Allergy status to other drugs, medicaments and biological substances; Z95.5 Presence of coronary angioplasty implant and graft

== ENCOUNTER → 2024-09-17 | Outpatient (REF) | payer MEDICARE, OTHER, BC ==
[~2024-09-17] MED LIST changes: +ACET-1515 PO; -ACET650T15 PO; +CIPR250T3 PO; +PROBCAP14 PO
[2024-09-17 08:26] LABS: BASO # 0.1 10^3/uL (0.0-0.2); BASO % 0.2 % (0.0-1.0); EOS # 0.3 10^3/uL (0.0-0.5); EOS % 1.3 % (0.0-3.0); LYMPH # 2.0 10^3/uL (1.5-5.0); LYMPH % 9.9 % (24.0-44.0); MONO # 1.0 10^3/uL (0.0-0.8); MONO % 5.1 % (2.0-8.0); NEUTROPHILS # 16.9 10^3/uL (1.5-8.5); NEUTROPHILS % 83.2 % (36.0-66.0); PLATELET COUNT, AUTOMATED 247 10^3/uL (150-450)
[2024-09-17 08:58] LABS: CALCIUM LEVEL 9.4 MG/DL (8.3-10.6); CARBON DIOXIDE LEVEL 23.0 MMOL/L (20-31); CHLORIDE LEVEL 105.0 MMOL/L (98-107); CREATININE FOR GFR 2.11 MG/DL (0.70-1.30); GLOMERULAR FILTRATION RATE 31.3 (>42); POTASSIUM SERUM 4.5 MMOL/L (3.5-5.1); SODIUM LEVEL 141.0 MMOL/L (136-145)
== END ==
LOC: SKLAB3 07:00
PROVIDERS: ATTEND Internal Medicine
DX: Z79.899 Other long term (current) drug therapy (principal)

== ENCOUNTER → 2024-09-27 | Outpatient (REF) | payer OTHER, MEDICARE, BC ==
[~2024-09-27] MED LIST changes: +ACET-1515 PO; +AMLO2.5T3 PO; +CIPR250T3 PO; +DULO30CA9 PO; +LIDO1PAD TOP; +MAGN400T35 PO; +PROBCAP14 PO; +VITA1CAP25 PO
[2024-09-27 13:49] LABS: BASO # 0.1 10^3/uL (0.0-0.2); BASO % 0.5 % (0.0-1.0); EOS # 0.4 10^3/uL (0.0-0.5); EOS % 3.3 % (0.0-3.0); LYMPH # 2.6 10^3/uL (1.5-5.0); LYMPH % 22.5 % (24.0-44.0); MONO # 0.8 10^3/uL (0.0-0.8); MONO % 6.8 % (2.0-8.0); NEUTROPHILS # 7.8 10^3/uL (1.5-8.5); NEUTROPHILS % 66.6 % (36.0-66.0); PLATELET COUNT, AUTOMATED 352 10^3/uL (150-450)
[2024-09-27 14:12] LABS: CALCIUM LEVEL 8.9 MG/DL (8.3-10.6); CARBON DIOXIDE LEVEL 26.0 MMOL/L (20-31); CHLORIDE LEVEL 102.0 MMOL/L (98-107); CREATININE FOR GFR 1.56 MG/DL (0.70-1.30); GLOMERULAR FILTRATION RATE 44.9 (>42); POTASSIUM SERUM 5.2 MMOL/L (3.5-5.1); SODIUM LEVEL 140.0 MMOL/L (136-145)
== END ==
LOC: SKLAB3 07:00
PROVIDERS: ATTEND Internal Medicine
DX: N39.0 Urinary tract infection, site not specified (principal)

== ENCOUNTER → 2024-10-03 | Outpatient (REF) | payer OTHER, MEDICARE, BC ==
[2024-10-03 07:09] LABS: PLATELET COUNT, AUTOMATED 250 10^3/uL (150-450)
[2024-10-03 07:29] LABS: CALCIUM LEVEL 9.7 MG/DL (8.3-10.6); CARBON DIOXIDE LEVEL 27.0 MMOL/L (20-31); CHLORIDE LEVEL 102.0 MMOL/L (98-107); CREATININE FOR GFR 1.75 MG/DL (0.70-1.30); GLOMERULAR FILTRATION RATE 39.1 (>42); POTASSIUM SERUM 4.4 MMOL/L (3.5-5.1); SODIUM LEVEL 142.0 MMOL/L (136-145)
== END ==
LOC: SKLAB3 07:00
PROVIDERS: ATTEND Internal Medicine
DX: R19.7 Diarrhea, unspecified (principal)

== ENCOUNTER → 2024-10-04 | Outpatient (REF) | payer BC, MEDICARE, OTHER ==
[2024-10-04 08:40] LABS: BASO # 0.1 10^3/uL (0.0-0.2); BASO % 0.5 % (0.0-1.0); EOS # 0.5 10^3/uL (0.0-0.5); EOS % 4.8 % (0.0-3.0); LYMPH # 3.1 10^3/uL (1.5-5.0); LYMPH % 28.2 % (24.0-44.0); MONO # 0.8 10^3/uL (0.0-0.8); MONO % 7.2 % (2.0-8.0); NEUTROPHILS # 6.6 10^3/uL (1.5-8.5); NEUTROPHILS % 59.0 % (36.0-66.0); PLATELET COUNT, AUTOMATED 260 10^3/uL (150-450)
[2024-10-04 09:08] LABS: CALCIUM LEVEL 9.8 MG/DL (8.3-10.6); CARBON DIOXIDE LEVEL 27.0 MMOL/L (20-31); CHLORIDE LEVEL 101.0 MMOL/L (98-107); CREATININE FOR GFR 1.85 MG/DL (0.70-1.30); GLOMERULAR FILTRATION RATE 36.6 (>42); POTASSIUM SERUM 4.2 MMOL/L (3.5-5.1); SODIUM LEVEL 142.0 MMOL/L (136-145)
== END ==
LOC: SKLAB3 07:00
PROVIDERS: ATTEND Internal Medicine
DX: N39.0 Urinary tract infection, site not specified (principal)

== ENCOUNTER 2024-10-22 13:34 | Emergency (ER) | payer OTHER, MEDICARE, BC ==
[~2024-10-22] VITALS: Ht 180.3 cm; Wt 100.0 kg
[~2024-10-22 13:34] MED LIST changes: +EZET10TA21 PO; -EZET10TA57 PO
[2024-10-22 15:01] VITALS: BP 138/63; TEMP 98.4; O2SAT 95
== END 2024-10-22 17:05 | disposition home or self-care (01) ==
LOC: EDBD 13:34 → M ED 13:34
DX: D72.829 Elevated white blood cell count, unspecified (principal); I25.10 Atherosclerotic heart disease of native coronary artery without angina pectoris; E11.9 Type 2 diabetes mellitus without complications; E78.5 Hyperlipidemia, unspecified; I12.9 Hypertensive chronic kidney disease with stage 1 through stage 4 chronic kidney disease, or unspecified chronic kidney disease; F03.90 Unspecified dementia, unspecified severity, without behavioral disturbance, psychotic disturbance, mood disturbance, and anxiety; Z86.79 Personal history of other diseases of the circulatory system; Z87.891 Personal history of nicotine dependence; Z79.82 Long term (current) use of aspirin; Z79.84 Long term (current) use of oral hypoglycemic drugs; Z79.899 Other long term (current) drug therapy; Z88.5 Allergy status to narcotic agent

== ENCOUNTER → 2024-10-22 | Outpatient (REF) | payer BC, MEDICARE, OTHER ==
[~2024-10-22] MED LIST changes: -EZET10TA21 PO; +EZET10TA57 PO
[2024-10-22 11:47] LABS: BASO # 0.0 10^3/uL (0.0-0.2); BASO % 0.2 % (0.0-1.0); EOS # 0.2 10^3/uL (0.0-0.5); EOS % 1.3 % (0.0-3.0); LYMPH # 2.3 10^3/uL (1.5-5.0); LYMPH % 12.5 % (24.0-44.0); MONO # 1.1 10^3/uL (0.0-0.8); MONO % 6.0 % (2.0-8.0); NEUTROPHILS # 14.6 10^3/uL (1.5-8.5); NEUTROPHILS % 79.4 % (36.0-66.0); PLATELET COUNT, AUTOMATED 295 10^3/uL (150-450)
[2024-10-22 12:20] LABS: CALCIUM LEVEL 9.4 MG/DL (8.3-10.6); CARBON DIOXIDE LEVEL 26.0 MMOL/L (20-31); CHLORIDE LEVEL 102.0 MMOL/L (98-107); CREATININE FOR GFR 1.8 MG/DL (0.70-1.30); GLOMERULAR FILTRATION RATE 37.8 (>42); POTASSIUM SERUM 4.7 MMOL/L (3.5-5.1); SODIUM LEVEL 141.0 MMOL/L (136-145)
== END ==
LOC: SKLAB3 07:00
PROVIDERS: ATTEND Internal Medicine
DX: N39.0 Urinary tract infection, site not specified (principal)

== ENCOUNTER → 2024-10-29 | Outpatient (REF) | payer BC, MEDICARE, OTHER ==
[~2024-10-29] MED LIST changes: -EZET10TA21 PO; +EZET10TA57 PO
[2024-10-29 08:09] LABS: PLATELET COUNT, AUTOMATED 288 10^3/uL (150-450)
== END ==
LOC: SKLAB3 07:00
PROVIDERS: ATTEND Internal Medicine
DX: Z79.899 Other long term (current) drug therapy (principal)

== ENCOUNTER → 2024-10-30 | Outpatient (REF) | payer BC, MEDICARE, OTHER ==
[~2024-10-30] MED LIST changes: +EZET10TA21 PO; -EZET10TA57 PO
== END ==
LOC: SKLAB3 11:07
PROVIDERS: ATTEND Internal Medicine
DX: D72.829 Elevated white blood cell count, unspecified (principal)

== ENCOUNTER → 2024-12-02 | Outpatient (REF) | payer OTHER, MEDICARE ==
[2024-11-30 10:22] LABS: PLATELET COUNT, AUTOMATED 247 10^3/uL (150-450)
[~2024-12-02] MED LIST changes: -EZET10TA21 PO; +EZET10TA57 PO
== END ==
LOC: SKLAB3 02:34
PROVIDERS: ATTEND Internal Medicine
DX: Z79.899 Other long term (current) drug therapy (principal)

== ENCOUNTER → 2024-12-02 | Outpatient (REF) | payer MEDICARE, OTHER ==
[2024-12-02 21:30] LABS: BASO # 0.0 10^3/uL (0.0-0.2); BASO % 0.3 % (0.0-1.0); EOS # 0.3 10^3/uL (0.0-0.5); EOS % 2.0 % (0.0-3.0); LYMPH # 2.1 10^3/uL (1.5-5.0); LYMPH % 14.5 % (24.0-44.0); MONO # 1.2 10^3/uL (0.0-0.8); MONO % 8.3 % (2.0-8.0); NEUTROPHILS # 10.7 10^3/uL (1.5-8.5); NEUTROPHILS % 74.5 % (36.0-66.0); PLATELET COUNT, AUTOMATED 209 10^3/uL (150-450)
[2024-12-02 21:53] LABS: ALT/SGPT 19.0 U/L (7.0-40); AST/SGOT 13.0 U/L (<34); CALCIUM LEVEL 9.1 MG/DL (8.3-10.6); CARBON DIOXIDE LEVEL 27.0 MMOL/L (20-31); CHLORIDE LEVEL 103.0 MMOL/L (98-107); CREATININE FOR GFR 2.0 MG/DL (0.70-1.30); GLOMERULAR FILTRATION RATE 33.3 (>42); POTASSIUM SERUM 4.6 MMOL/L (3.5-5.1); SODIUM LEVEL 140.0 MMOL/L (136-145)
== END ==
LOC: SKLAB3 07:00
PROVIDERS: ATTEND Nurse Practitioner Adult Health
DX: N39.0 Urinary tract infection, site not specified (principal)

== ENCOUNTER → 2024-12-02 | Outpatient (REF) | payer MEDICARE, OTHER ==
[2024-12-02 08:37] LABS: APPEARANCE, URINE HAZY (CLEAR); BACTERIA, URINE AUTO 1+ (NEGATIVE); BILIRUBIN, URINE AUTO NEGATIVE (NEGATIVE); BLOOD, URINE BLOOD NEGATIVE (NEGATIVE); GLUCOSE, URINE (UA) AUTO NEGATIVE (NEGATIVE); KETONE, URINE AUTO NEGATIVE (NEGATIVE); LEUKOCYTE ESTERASE, URINE AUTO 3+ (NEGATIVE); NITRITE, URINE AUTO NEGATIVE (NEGATIVE); PROTEIN, URINE AUTO 2+ mg/dL (NEGATIVE); RBC, URINE AUTO 5 /HPF (0-3); SPECIFIC GRAVITY URINE AUTO 1.016 (1.002-1.035); SQUAMOUS EPITHELIAL CELL UR AU 0 /HPF (0-6); UROBILINOGEN, URINE AUTO 0.2 mg/dL (0.0-2.0); WBC, URINE AUTO TNTC /HPF (0-3)
== END ==
LOC: SKLAB3 08:11
PROVIDERS: ATTEND Nurse Practitioner Women's Health
DX: R68.89 Other general symptoms and signs (principal)

== ENCOUNTER → 2024-12-04 | Outpatient (REF) | payer MEDICARE, OTHER ==
[2024-12-04 15:13] LABS: CALCIUM LEVEL 9.1 MG/DL (8.3-10.6); CARBON DIOXIDE LEVEL 25.0 MMOL/L (20-31); CHLORIDE LEVEL 105.0 MMOL/L (98-107); CREATININE FOR GFR 1.69 MG/DL (0.70-1.30); GLOMERULAR FILTRATION RATE 40.8 (>42); POTASSIUM SERUM 4.1 MMOL/L (3.5-5.1); SODIUM LEVEL 138.0 MMOL/L (136-145)
== END ==
LOC: EEVIPCON → SKLAB3 07:00
PROVIDERS: ATTEND Family Medicine
DX: I10 Essential (primary) hypertension (principal)

== ENCOUNTER → 2024-12-06 | Outpatient (REF) | payer OTHER, MEDICARE ==
[2024-12-06 09:13] LABS: PLATELET COUNT, AUTOMATED 312 10^3/uL (150-450)
== END ==
LOC: SKLAB3 07:00
PROVIDERS: ATTEND Family Medicine
DX: N18.9 Chronic kidney disease, unspecified (principal)

== ENCOUNTER → 2025-01-15 | Outpatient (REF) | payer OTHER, MEDICARE | LOC: SKLAB3 10:15 | PROVIDERS: ATTEND Family Medicine | DX: R14.0 Abdominal distension (gaseous) (principal) ==

== ENCOUNTER → 2025-01-18 | Outpatient (REF) | payer MEDICARE, OTHER ==
[2025-01-18 12:18] LABS: BASO # 0.1 10^3/uL (0.0-0.2); BASO % 0.5 % (0.0-1.0); EOS # 0.3 10^3/uL (0.0-0.5); EOS % 3.5 % (0.0-3.0); LYMPH # 2.3 10^3/uL (1.5-5.0); LYMPH % 24.4 % (24.0-44.0); MONO # 0.6 10^3/uL (0.0-0.8); MONO % 6.6 % (2.0-8.0); NEUTROPHILS # 6.2 10^3/uL (1.5-8.5); NEUTROPHILS % 64.8 % (36.0-66.0); PLATELET COUNT, AUTOMATED 204 10^3/uL (150-450)
[2025-01-18 12:46] LABS: CALCIUM LEVEL 8.9 MG/DL (8.3-10.6); CARBON DIOXIDE LEVEL 26 MMOL/L (20-31); CHLORIDE LEVEL 104 MMOL/L (98-107); CREATININE FOR GFR 1.71 MG/DL (0.70-1.30); GLOMERULAR FILTRATION RATE 40.2 (>42); IRON (FE) 75 UG/DL (65-175); MAGNESIUM LEVEL 1.9 MG/DL (1.8-2.4); PHOSPHORUS LEVEL 3.3 MG/DL (2.4-5.1); POTASSIUM SERUM 4.4 MMOL/L (3.5-5.1); SODIUM LEVEL 140 MMOL/L (136-145)
[2025-01-18 12:47] LABS: PERCENT SATURATION 29.3 % (19.7-50.0)
[2025-01-18 12:49] LABS: VITAMIN B12 LEVEL 321 PG/ML (211-911)
[2025-01-18 15:26] LABS: APPEARANCE, URINE HAZY (CLEAR); BACTERIA, URINE AUTO NEGATIVE (NEGATIVE); BILIRUBIN, URINE AUTO NEGATIVE (NEGATIVE); BLOOD, URINE BLOOD NEGATIVE (NEGATIVE); GLUCOSE, URINE (UA) AUTO 1+ mg/dL (NEGATIVE); KETONE, URINE AUTO NEGATIVE (NEGATIVE); LEUKOCYTE ESTERASE, URINE AUTO 2+ (NEGATIVE); MUCUS, URINE SMALL (NEGATIVE); NITRITE, URINE AUTO NEGATIVE (NEGATIVE); PROTEIN, URINE AUTO NEGATIVE (NEGATIVE); RBC, URINE AUTO 4 /HPF (0-3); SPECIFIC GRAVITY URINE AUTO 1.021 (1.002-1.035); SQUAMOUS EPITHELIAL CELL UR AU 0 /HPF (0-6); UROBILINOGEN, URINE AUTO 0.2 mg/dL (0.0-2.0); WBC, URINE AUTO 16 /HPF (0-3)
[2025-01-18 15:54] LABS: TOTAL PROTEIN,RANDOM URINE 36.3 MG/DL (0.0-14.0)
== END ==
LOC: SKLAB3 11:28
PROVIDERS: ATTEND Family Medicine
DX: N18.9 Chronic kidney disease, unspecified (principal)

== ENCOUNTER → 2025-02-26 | Outpatient (REF) | payer OTHER, MEDICARE ==
[~2025-02-26] MED LIST changes: +ONDA-83 PO; +[UNRECOGNIZED DRUG - CODE] TOP
[2025-02-26 09:48] LABS: CALCIUM LEVEL 9.4 MG/DL (8.3-10.6); CARBON DIOXIDE LEVEL 26.0 MMOL/L (20-31); CHLORIDE LEVEL 104.0 MMOL/L (98-107); CREATININE FOR GFR 1.64 MG/DL (0.70-1.30); GLOMERULAR FILTRATION RATE 42.3 (>42); POTASSIUM SERUM 4.2 MMOL/L (3.5-5.1); SODIUM LEVEL 141.0 MMOL/L (136-145)
== END ==
LOC: SKLAB3 07:00
PROVIDERS: ATTEND Family Medicine
DX: E03.9 Hypothyroidism, unspecified (principal); I10 Essential (primary) hypertension